=== PATIENT | female | born 1940 ===

== ENCOUNTER 2017-07-30 22:15 | Observation (INO) | payer OTHER ==
[2017-07-30 22:47] LABS: BASO # 0.1 K/uL (0.0-0.2); BASO % 1.2 % (0.0-2.0); EOS # 0.2 K/uL (0.0-0.7); EOS % 1.4 % (0.0-4.0); LYMPH # 3.8 K/uL (1.0-4.3); LYMPH % 33.1 % (20.0-40.0); MEAN CELL VOLUME 90.3 fl (81.0-99.0); MEAN CORPUSCULAR HEMOGLOBIN 30.9 pg (27.0-31.0); MEAN CORPUSCULAR HGB CONC 34.2 g/dL (33.0-37.0); MEAN PLATELET VOLUME 8.6 fl (7.2-11.7); MONO % 8.6 % (0.0-10.0); NEUT # 6.4 K/uL (1.8-7.0); NEUT % 55.7 % (50.0-75.0); NRBC % 0.1 % (0.0-0.0); RBC 4.2 Mil/uL (3.80-5.20); WHITE BLOOD COUNT 11.4 K/uL (4.8-10.8)
[2017-07-30 22:57] LABS: ALB/GLOB RATIO 1.2 (1.0-2.1); ALT/SGPT 24 U/L (9-52); AST/SGOT 23 U/L (14-36); BLOOD UREA NITROGEN 21 mg/dl (7-17); CALCIUM 9.5 mg/dL (8.4-10.2); GFR AFRICAN-AMERICAN > 60; GFR NON-AFRICAN AMERICAN 54
[2017-07-30 23:05] LABS: PARTIAL THROMBOPLASTIN TIME 31.7 Seconds (25.6-37.1); PROTHROMBIN TIME 10.9 Seconds (9.8-13.1)
--- NOTE | 2017-07-31 00:01 | ED PDOC ---
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 Patient was evaluated by ALS at the scene and was released. Patient states she had a similar episode 1 week ago, and states 1 month ago, she was in [place] where she suffered a fall and had a workup in the ER which showed hydrocephalus and had the DOPING SUPERVISOR shunt placed. Since then, patient has followed up with Dr. Rodriguez, her neurologist and has another appointment on 08/05. She states she has gait instability and has worsening urinary incontinence. She denies any back pain, headache, nausea, vomiting, chest pain, or shortness of breath. Patient is the primary historian but her is at bedside. PMD: Kishore Vincent NIHSS Stroke Scale - Date/Time Evaluation Performed Date Performed: 07/31/17 Time Performed: 22:25 When Was NIHSS Performed: Baseline - How Severe is the Stroke Level of Consciousness: 0=Alert LOC to Questions: 0=Both comments correct LOC to commands: 0=Obeys both correctly Best Gaze: 0=Normal Visual: 0=No visual loss Facial: 0=Normal Motor Arm - Left: 0=No drift Motor Arm - Right: 0=No drift Motor Leg - Left: 0=No drift Motor Leg - Right: NA - Amputation, joint fusion Limb Ataxia: 0=Absent Sensory: 0=Normal Best Language: 0=No aphasia Dysarthia: 0=Normal articulation Extinction & Inattention (Neglect): 0=Normal, no object Score: 0 Past Medical History Reviewed: Historical Data, Nursing Documentation, Vital Signs Vital Signs: Last Vital Signs Temp 98.6 F 07/30/17 22:19 Pulse 71 07/30/17 22:19 Resp 16 07/30/17 22:19 BP 131/79 07/30/17 22:19 Pulse Ox 97 07/30/17 22:19 - Medical History PMH: CVA (s/p CVA), Dementia, Depression, Diabetes, Seizures (Currently takes medication perscribed from [facility]), TIA Denies: Arthritis, CHF, COPD, HTN, Hypercholesterolemia, Hypothyroidism, Rheumatoid Arthritis - Surgical History Other surgeries: DOPING SUPERVISOR shunt - Family History Family History: States: No Known Family Hx, Unknown Family Hx - Living Arrangements Living Arrangements: With Family - Social History Current smoker - smoking cessation education provided: No Alcohol: None Drugs: Denies - Immunization History Hx Tetanus Toxoid Vaccination: No Hx Influenza Vaccination: Yes Hx Pneumococcal Vaccination: Yes - Home Medications Home Medications: Ambulatory Orders Medication Instructions Recorded Pravastatin Sodium [Pravachol] 40 mg PO HS 04/04/15 Aspirin [Ecotrin] 81 mg PO DAILY #0 tabec 04/07/15 Donepezil [Aricept] 5 mg PO DAILY #0 tab 04/07/15 Zolpidem Tartrate [Ambien] 5 mg PO HS PRN #30 tab 04/07/15 Dulaglutide [Trulicity] 0.75 mg SC QWK 07/31/17 Escitalopram [Lexapro] 20 mg PO DAILY 07/31/17 Levothyroxine [Synthroid] 25 mcg PO DAILY 07/31/17 busPIRone [Buspar] 10 mg PO DAILY 07/31/17 metFORMIN [glucOPHAGE] 1,000 mg PO DAILY 07/31/17 - Allergies Allergies/Adverse Reactions: Allergies Allergy/AdvReac Type Severity Reaction Status Date / Time No Known Allergies Allergy Verified 07/22/17 16:47 Review of Systems ROS Statement: Except As Marked, All Systems Reviewed And Found Negative Constitutional: Negative for: Fever, Chills Cardiovascular: Negative for: Chest Pain Respiratory: Negative for: Shortness of Breath Gastrointestinal: Negative for: Nausea, Vomiting Genitourinary Female: Positive for: Incontinence Musculoskeletal: Negative for: Back Pain Neurological: Positive for: Other (aphasic episode, unsteady gait, ). Negative for: Weakness, Headache Physical Exam - Reviewed Nursing Documentation Reviewed: Yes Vital Signs Reviewed: Yes - Physical Exam Appears: Positive for: Non-toxic, No Acute Distress Head Exam: Positive for: ATRAUMATIC, NORMAL INSPECTION (easily depressable right temporal DOPING SUPERVISOR shunt reservoir), NORMOCEPHALIC Skin: Positive for: Normal Color, Warm, Dry Eye Exam: Positive for: Normal appearance, EOMI, PERRL Neck: Positive for: Normal, Supple Cardiovascular/Chest: Positive for: Regular Rate, Rhythm Respiratory: Positive for: Normal Breath Sounds Gastrointestinal/Abdominal: Positive for: Normal Exam, Soft. Negative for: Tenderness Back: Positive for: Normal Inspection. Negative for: Vertebral Tenderness Extremity: Positive for: Normal ROM. Negative for: Deformity Neurologic/Psych: Positive for: Alert, perishable fruit inspector II-XII (intact), Oriented. Negative for: Motor/Sensory Deficits, Aphasia, Facial Droop - Laboratory Results Result Diagrams: 07/30/17 22:37 07/30/17 22:37 - ECG O2 Sat by Pulse Oximetry: 97 (RA) Pulse Ox Interpretation: Normal Medical Decision Making Medical Decision Making: Impression: Aphasia in setting of history of hydrocephalus, DOPING SUPERVISOR shunt Plan: -- Labs -- CT head w/o contrast -- Tylenol 650 mg PO -- EKG Time: [address] Rodriguez, patient's neurologist who agrees that based on patient's exam, intermittent episodes past week, she is not a candidate for stroke alert or code stroke. He is agreeable with current workup plan and states should the results be negative and patient stays asymptomatic in the ER, she can follow up with his tomorrow at 11am in his office. Time: 11 CT head w/o contrast FINDINGS: BRAIN: Areas of hypodensity in the white matter bilaterally, nonspecific in appearance, but most likely representing chronic small vessel ischemic changes, in a patient of this age. Physiologic basal ganglia calcification. No significant acute abnormality identified. No acute hemorrhage seen within the brain. No acute extra-axial fluid collections visualized. No evidence of significant mass effect within the brain. No CT findings to suggest an acute, large territorial infarct, however, small or early acute infarcts may not be visible on CT. VENTRICLES: Right transfrontal ventriculostomy in place, which terminates in the region of the frontal horns. Ventricles do not appear abnormally dilated with respect to the degree of cortical atrophy to suggest significant hydrocephalus. BONES/JOINTS: No acute fractures or other acute bony abnormality noted. SOFT TISSUES: No acute abnormality of the visualized soft tissues is seen. SINUSES: Visualized paranasal sinuses appear clear. MASTOID AIR CELLS: Mastoid air cells appear clear. IMPRESSION: - No acute findings seen within the brain. - Ventriculostomy in place. Time:124 -- reports she had another episode in which patient speech was slurred but intelligible. Patient will be placed on observation for altered mental status and recurrent aphasia. Case discussed with Dr. Santillan and patient will be admitted under his service. Scribe Attestation: Documented by Anastasiia Puente, acting as a scribe for Jacek Izaguirre MD Provider Scribe Attestation: All medical record entries made by the Scribe were at my direction and personally dictated by me. I have reviewed the chart and agree that the record accurately reflects my personal performance of the history, physical exam, medical decision making, and the department course for this patient. I have also personally directed, reviewed, and agree with the discharge instructions and disposition. Disposition - Clinical Impression Clinical Impression: Aphasia - Patient ED Disposition Is Patient to be Admitted: Yes - Disposition Disposition Time: 01:25 Condition: FAIR
--- NOTE | 2017-07-31 00:12 | CT ---
EXAM: CT Head Without Intravenous Contrast EXAM DATE/TIME: 07/30/2017 10:51 PM CLINICAL HISTORY: 77 years old, female; Signs and symptoms; Other: Aphasia; Prior surgery; Surgery date: 6+ months; Surgery type: H/o shunt; Additional info: HX shunt, episode of aphasia TECHNIQUE: Axial computed tomography images of the head/brain without intravenous contrast. All CT scans at this facility use one or more dose reduction techniques, viz.: automated exposure control; ma/kV adjustment per patient size (including targeted exams where dose is matched to indication; i.e. head); or iterative reconstruction technique. Coronal and sagittal reformatted images were created and reviewed. COMPARISON: None is available currently. FINDINGS: BRAIN: Areas of hypodensity in the white matter bilaterally, nonspecific in appearance, but most likely representing chronic small vessel ischemic changes, in a patient of this age. Physiologic basal ganglia calcification. No significant acute abnormality identified. No acute hemorrhage seen within the brain. No acute extra-axial fluid collections visualized. No evidence of significant mass effect within the brain. No CT findings to suggest an acute, large territorial infarct, however, small or early acute infarcts may not be visible on CT. VENTRICLES: Right transfrontal ventriculostomy in place, which terminates in the region of the frontal horns. Ventricles do not appear abnormally dilated with respect to the degree of cortical atrophy to suggest significant hydrocephalus. BONES/JOINTS: No acute fractures or other acute bony abnormality noted. SOFT TISSUES: No acute abnormality of the visualized soft tissues is seen. SINUSES: Visualized paranasal sinuses appear clear. MASTOID AIR CELLS: Mastoid air cells appear clear. IMPRESSION: - No acute findings seen within the brain. - Ventriculostomy in place. - See above for remaining findings.
[2017-07-31] MEDS ORDERED: Levothyroxine 25 MCG TAB PO SCH (06:45)
[2017-07-31] MEDS: Insulin Lispro (humaLOG) 100 Units/ml Inj SC SCH ×3 (06:53→17:00)
[2017-07-31 07:49] LABS: HEMOGLOBIN 12.7 g/dL (12.0-16.0); MEAN CORPUSCULAR HEMOGLOBIN 29.9 pg (27.0-31.0); MEAN CORPUSCULAR HGB CONC 32.9 g/dL (33.0-37.0); RBC 4.24 Mil/uL (3.80-5.20); RED CELL DISTRIBUTION WIDTH 14.1 % (11.5-14.5); WHITE BLOOD COUNT 11.1 K/uL (4.8-10.8)
[2017-07-31 08:15] LABS: ALB/GLOB RATIO 1.1 (1.0-2.1); ALBUMIN 3.8 g/dL (3.5-5.0); ALT/SGPT 26 U/L (9-52); AST/SGOT 18 U/L (14-36); BLOOD UREA NITROGEN 17 mg/dl (7-17); CALCIUM 9.5 mg/dL (8.4-10.2); GFR AFRICAN-AMERICAN > 60; GFR NON-AFRICAN AMERICAN > 60; HDL CHOLESTEROL 34 MG/DL (30-70); LDL CHOLESTEROL 70 mg/dL (0-129)
[2017-07-31 08:20] LABS: T4 7.72 ug/dl (5.5-11.0)
[2017-07-31 08:33] LABS: T3 0.959 nmol/L (1.49-2.60)
[2017-07-31] MEDS ORDERED: Enoxaparin 40 mg Syringe SC SCH (09:00)
--- NOTE | 2017-07-31 09:06 | CP.PCM.HP ---
History of Present Illness - History of Present Illness History of Present Illness: 77 yo , f, PMhx/o HTN, DM, DM, HLD, hydrocephalus with a SENIOR TAX SPECIALIST shunt in place, dementia, presents c/o difficulty speaking noticed last night . Patient reports that when she went out from restroom and going back to meet with her she felt confused and lost in her own house and when she tried to talk to her , she was mute and could not speak. she leilani like numbness right side of her face and b/l leg muscle weakness. Patient states she had a similar episode 1 week ago, and states 1 month ago, she was in [place] where she suffered a fall and had a workup in the ER which showed hydrocephalus and had the SENIOR TAX SPECIALIST shunt placed. Since then, patient has followed up with Dr. Rodriguez, her neurologist and has another appointment on 08/05. She states she has gait instability and has worsening urinary incontinence She denies syncope, chest pain, SOB, fever, nausea, vomiting. Dysuria. Present on Admission - Present on Admission Any Indicators Present on Admission: No History of DVT/PE: No History of Uncontrolled Diabetes: No Review of Systems - Review of Systems All systems: reviewed and no additional remarkable complaints except - Neurological Additional comments: unable to speak facial numbness Past Patient History - Infectious Disease Hx of Infectious Diseases: None - Past Medical History & Family History Past Medical History?: Yes - Past Social History Alcohol: None Drugs: Denies - CARDIAC Hx Congestive Heart Failure: No Hx Hypercholesterolemia: No Hx Hypertension: No - PULMONARY Hx Chronic Obstructive Pulmonary Disease (COPD): No - NEUROLOGICAL Hx Dementia: Yes Hx Seizures: Yes (Currently takes medication perscribed from [facility]) Hx Transient Ischemic Attacks (TIA): Yes - HEENT Hx HEENT Problems: No - RENAL Hx Chronic Kidney Disease: No - ENDOCRINE/METABOLIC Hx Hypothyroidism: No - HEMATOLOGICAL/ONCOLOGICAL Hx Blood Disorders: Yes Hx Cancer: Yes (colon ca with sx) - INTEGUMENTARY Hx Dermatological Problems: Yes Other/Comment: skin ca (nose) with sx - MUSCULOSKELETAL/RHEUMATOLOGICAL Hx Arthritis: No Hx Rheumatoid Arthritis: No - GASTROINTESTINAL Hx Gastrointestinal Disorders: No - GENITOURINARY/GYNECOLOGICAL Hx Genitourinary Disorders: Yes Hx Incontinence: Yes - PSYCHIATRIC Hx Depression: Yes - SURGICAL HISTORY Hx Surgeries: Yes Other/Comment: right knee surgery. brain surgery with "device" SENIOR TAX SPECIALIST shunt placement - ANESTHESIA Hx Anesthesia: Yes Hx Anesthesia Reactions: No Meds Allergies/Adverse Reactions: Allergies Allergy/AdvReac Type Severity Reaction Status Date / Time No Known Allergies Allergy Verified 07/22/17 16:47 Physical Exam - Constitutional Appears: Non-toxic, No Acute Distress - Head Exam Head Exam: ATRAUMATIC, NORMOCEPHALIC - Eye Exam Eye Exam: Normal appearance - ENT Exam ENT Exam: Mucous Membranes Moist - Neck Exam Neck exam: Positive for: Normal Inspection - Respiratory Exam Respiratory Exam: Clear to Auscultation Bilateral. absent: Rhonchi, Wheezes - Cardiovascular Exam Cardiovascular Exam: REGULAR RHYTHM, +S1, +S2 - GI/Abdominal Exam GI & Abdominal Exam: Normal Bowel Sounds. absent: Tenderness - Extremities Exam Extremities exam: Positive for: normal inspection. Negative for: pedal edema - Neurological Exam Neurological exam: Alert, Oriented x3 - Psychiatric Exam Psychiatric exam: Normal Affect, Normal Mood - Skin Skin Exam: Intact Results - Vital Signs Recent Vital Signs: Last Vital Signs Temp 97.8 F 07/31/17 08:03 Pulse 58 L 07/31/17 08:03 Resp 18 07/31/17 08:03 BP 104/65 07/31/17 08:03 Pulse Ox 98 07/31/17 08:03 - Labs Result Diagrams: 07/31/17 07:44 07/31/17 07:44 Labs: Laboratory Results - last 24 hr 07/30/17 07/30/17 07/30/17 22:37 22:37 22:37 WBC 11.4 H RBC 4.20 Hgb 13.0 Hct 37.9 MCV 90.3 D MCH 30.9 MCHC 34.2 RDW 14.0 Plt Count 235 MPV 8.6 Neut % (Auto) 55.7 Lymph % (Auto) 33.1 Cuming % (Auto) 8.6 Eos % (Auto) 1.4 Baso % (Auto) 1.2 Neut # (Auto) 6.4 Lymph # (Auto) 3.8 Cuming # (Auto) 1.0 H Eos # (Auto) 0.2 Baso # (Auto) 0.1 PT 10.9 INR 1.0 APTT 31.7 Sodium 141 Potassium 4.3 Chloride 104 Carbon Dioxide 24 Anion Gap 17 BUN 21 H Creatinine 1.0 Est GFR ( Amer) > 60 Est GFR (Non-Af Amer) 54 POC Glucose (mg/dL) Random Glucose 147 H Calcium 9.5 Total Bilirubin 0.2 AST 23 ALT 24 Alkaline Phosphatase 81 Troponin I < 0.0120 Total Protein 7.5 Albumin 4.0 Globulin 3.5 Albumin/Globulin Ratio 1.2 Triglycerides Cholesterol LDL Cholesterol Direct HDL Cholesterol Vitamin B12 Thyroxine (T4) Total T3 TSH 3rd Generation 07/30/17 07/31/17 07/31/17 22:40 05:33 07:02 WBC RBC Hgb Hct MCV MCH MCHC RDW Plt Count MPV Neut % (Auto) Lymph % (Auto) Cuming % (Auto) Eos % (Auto) Baso % (Auto) Neut # (Auto) Lymph # (Auto) Cuming # (Auto) Eos # (Auto) Baso # (Auto) PT INR APTT Sodium Potassium Chloride Carbon Dioxide Anion Gap BUN Creatinine Est GFR ( Amer) Est GFR (Non-Af Amer) POC Glucose (mg/dL) 168 H 118 H Random Glucose Calcium Total Bilirubin AST ALT Alkaline Phosphatase Troponin I Total Protein Albumin Globulin Albumin/Globulin Ratio Triglycerides Cholesterol LDL Cholesterol Direct HDL Cholesterol Vitamin B12 237 L Thyroxine (T4) Total T3 TSH 3rd Generation 07/31/17 07/31/17 07:44 07:44 WBC 11.1 H RBC 4.24 Hgb 12.7 Hct 38.6 MCV 91.0 MCH 29.9 MCHC 32.9 L RDW 14.1 Plt Count 232 MPV Neut % (Auto) Lymph % (Auto) Cuming % (Auto) Eos % (Auto) Baso % (Auto) Neut # (Auto) Lymph # (Auto) Cuming # (Auto) Eos # (Auto) Baso # (Auto) PT INR APTT Sodium 142 Potassium 4.3 Chloride 104 Carbon Dioxide 26 Anion Gap 16 BUN 17 Creatinine 0.8 Est GFR ( Amer) > 60 Est GFR (Non-Af Amer) > 60 POC Glucose (mg/dL) Random Glucose 137 H Calcium 9.5 Total Bilirubin 0.3 AST 18 ALT 26 Alkaline Phosphatase 77 Troponin I Total Protein 7.1 Albumin 3.8 Globulin 3.4 Albumin/Globulin Ratio 1.1 Triglycerides 109 Cholesterol 141 LDL Cholesterol Direct 70 HDL Cholesterol 34 Vitamin B12 Thyroxine (T4) 7.72 Total T3 0.959 L TSH 3rd Generation 4.07 Assessment & Plan - Assessment and Plan (Free Text) Plan: Assessment/Plan 1) AMS -unspecified -may be 2/[address] head: ventriculostomy in place, no acute findings - MRI brain: pending -Carotid us: 50-69 % stenosis proximal left internal carotid artery - Neuro consult appreciated: carotid, MRI brain 2) Motor aphasia may be secondary to TIA Neuro consult appreciated: carotid, MRI brain CT head: ventriculostomy in place, no acute findings. MRI brain: pending Carotid us: 50-69 % stenosis proximal left internal carotid artery 3) Hydrocephalus s/p trauma with SENIOR TAX SPECIALIST shunt in place -may be 2/2 Normo pressure hydrocephalus -on f/u with neurologist 4) HTN -c/w home meds 5) DM c/w home meds 6) HLD c/w home meds 7) DVT prophylaxis -Lovenox 40 mg sc
--- NOTE | 2017-07-31 09:10 | CARD ---
APPROVED REPORT EKG Measurement Heart [id number] <Conclusion> Normal sinus rhythm Minimal voltage criteria for LVH, may be normal variant Borderline ECG
--- NOTE | 2017-07-31 11:41 | CON ---
DATE: NEUROLOGY CONSULTATION REASON FOR CONSULTATION: Difficulty with speech. HISTORY OF PRESENT ILLNESS: The patient is a 77-year-old female who has been asked for evaluation of difficulty with speech. The patient has a history of dementia, seizure, and history of VISUAL COORDINATOR shunt. The patient was brought into the hospital after she had an episode during which she has difficulty with speech. The patient did say that she knew what she wanted, but her voice was not coming out, it lasted for about 20 minutes and then she was fine. She had an similar episode 1 week ago. She had not had any focal weakness in arms or legs associated with it. Denies to having any other complaints. REVIEW OF SYSTEMS: Does complain of mild headache. Denies any chest pain, shortness of breath, abdominal pain, constipation, diarrhea, dysuria, pyuria, cough or sputum production. PAST MEDICAL HISTORY: Includes mild dementia, diabetes mellitus, and hypothyroidism. MEDICATIONS: Includes levothyroxine, Lexapro, Glucophage, BuSpar, Aricept, Ecotrin, pravastatin, Ambien, and Trulicity. ALLERGIES: NO KNOWN DRUG ALLERGIES. SOCIAL HISTORY: Denies smoking, use of alcohol or illicit drugs. FAMILY HISTORY: Reviewed and noncontributory to the case. PHYSICAL EXAMINATION: GENERAL: The patient is an elderly pleasant female, lying on the bed in no acute distress. VITAL SIGNS: Her blood pressure is 104/65, heart rate is 58 per minute, breathing at a rate of 16 per minute, and temperature is 97.8 degrees Fahrenheit. HEENT: Normocephalic and atraumatic. NECK: Supple. There are no carotid bruits. LUNGS: Clear. CARDIOVASCULAR: S1 and S2 audible. No murmurs. ABDOMEN: Soft and nontender. Bowel sounds present. NEUROLOGIC: Mental status: The patient is awake, alert and oriented to time, place and person. Speech is fluent. Naming and repetition is normal. Memory and cognition are intact. Cranial nerve examination; pupils are 3 mm, bilaterally reactive to light. Visual pleitez are full. Extraocular movements are intact. There is no facial asymmetry. Palate is upgoing bilaterally and tongue is midline. Motor examination: Tone is normal. Power is 5/5 bilaterally in all extremities. Reflexes 1+ and symmetrical. Plantars downgoing bilaterally. Cerebellar examination: [id number] shows no dysmetria. Gait is deferred at the moment. LABORATORY DATA: Labs reviewed shows WBC of 11.1, hemoglobin of 12.7, hematocrit of 38.6, and platelets of 232,000. Sodium is 142, potassium 4.3, chloride of 104, carbon dioxide of 26, BUN of 17, creatinine of 0.8, and glucose of 137. She had CT scan of the head done, which showed no acute findings. Ventriculostomy in place. IMPRESSION: Episode of difficulty with speech possibly expressive aphasia, rule out seizure versus possible transient ischemic attack. RECOMMENDATIONS: 1. The patient to have MRI of the brain without contrast. 2. The patient also to have carotid Doppler study. 3. The patient to have an electroencephalogram. 4. If the patient's MRI of the brain shows an acute infarct then consider obtaining echocardiogram as well. 5. The patient was not a candidate for administration because of resolution of her symptoms. 6. The patient's NIH stroke scale was 0. 7. The patient to be continued on aspirin. 8. The patient also to be continued on statin. 9. Please continue supportive care and treatment. If the above workup is negative, the patient may be discharged with outpatient followup. Thank you for the opportunity to participate in the care of this patient. Alice Rodriguez MD
--- NOTE | 2017-07-31 13:09 | US ---
PROCEDURE: Duplex ultrasound of the carotid and vertebral arteries. HISTORY: aphasia COMPARISON: Carotid ultrasound dated 08/26/2013. TECHNIQUE: Grayscale and duplex Doppler evaluation of the cervical carotid and vertebral arteries were performed. The common carotid, carotid bifurcations and cervical ICA and proximal ECA were evaluated. The vertebral arteries were evaluated for gross patency and direction. FINDINGS: RIGHT CAROTID ARTERIES: Common Carotid Artery: Normal. Maximal flow velocity of 69.3 cm/s. Carotid Bifurcation: Normal. Internal Carotid Artery:Normal. Maximal flow velocity of 90.2 cm/s. External Carotid Artery (proximal branches): Normal. Maximal flow velocity of 59.3 cm/s. ICA/CCA Ratio: 1.6 LEFT CAROTID ARTERIES: Common Carotid Artery: Normal. Maximal flow velocity of 72.4 cm/s. Carotid Bifurcation: Normal. Internal Carotid Artery:Atherosclerotic plaque. Maximal flow velocity of 159.6 cm/s. External Carotid Artery (proximal branches): Normal. Maximal flow velocity of 45.6 cm/s. ICA/CCA Ratio: 2.9 VERTEBRAL ARTERIES: Right Vertebral Artery: Patent. Antegrade flow. Left Vertebral Artery: Patent. Antegrade flow. OTHER FINDINGS: None. IMPRESSION: Per NASCET criteria, approximately 50-69 percent stenosis of the proximal left internal carotid artery.
[2017-07-31 13:19] VITALS: O2SAT 95
[2017-07-31 16:00] VITALS: RESP 20
[2017-07-31 18:38] VITALS: BP 106/51; PULSE 69; TEMP 97.9
[2017-07-31] MEDS ORDERED: Pravastatin Sodium 40 MG TAB PO SCH (22:00)
== END 2017-07-31 20:05 | disposition home or self-care (01) ==
LOC: H.ER 22:15 → H.ERHOLD 07-31 01:25 → H.TEL 07-31 02:59
PROVIDERS: ADMIT Internal Medicine; ATTEND Internal Medicine
DX: R47.9 Unspecified speech disturbances (principal); I10 Essential (primary) hypertension; E11.9 Type 2 diabetes mellitus without complications; F03.90 Unspecified dementia, unspecified severity, without behavioral disturbance, psychotic disturbance, mood disturbance, and anxiety; Z98.2 Presence of cerebrospinal fluid drainage device; E78.5 Hyperlipidemia, unspecified; Z86.73 Personal history of transient ischemic attack (TIA), and cerebral infarction without residual deficits; I65.22 Occlusion and stenosis of left carotid artery; G91.9 Hydrocephalus, unspecified
CPT/HCPCS: 36415; 70450; 80053; 80061; 82607; 82948; 84436; 84443; 84480; 84484; 85025; 85027; 85610; 85730; 93005; 93880; 95816; 96372; 99285; G0378; J1650; J3420

== ENCOUNTER 2017-08-07 00:11 | Observation (INO) | payer OTHER ==
[2017-08-07 00:50] LABS: BASO # 0.1 K/uL (0.0-0.2); EOS # 0.2 K/uL (0.0-0.7); EOS % 1.3 % (0.0-4.0); HEMOGLOBIN 12.8 g/dL (12.0-16.0); LYMPH # 3.9 K/uL (1.0-4.3); LYMPH % 28.4 % (20.0-40.0); MEAN CELL VOLUME 91.1 fl (81.0-99.0); MEAN CORPUSCULAR HEMOGLOBIN 30.5 pg (27.0-31.0); MEAN CORPUSCULAR HGB CONC 33.4 g/dL (33.0-37.0); MEAN PLATELET VOLUME 8.8 fl (7.2-11.7); MONO % 7.7 % (0.0-10.0); NEUT # 8.4 K/uL (1.8-7.0); NEUT % 61.6 % (50.0-75.0); RBC 4.21 Mil/uL (3.80-5.20); WHITE BLOOD COUNT 13.6 K/uL (4.8-10.8)
[2017-08-07 01:03] LABS: ALB/GLOB RATIO 1.3 (1.0-2.1); ALBUMIN 4.1 g/dL (3.5-5.0); CALCIUM 9.4 mg/dL (8.4-10.2)
[2017-08-07 01:12] LABS: PARTIAL THROMBOPLASTIN TIME 31.9 Seconds (25.6-37.1); PROTHROMBIN TIME 11.2 Seconds (9.8-13.1)
--- NOTE | 2017-08-07 01:17 | ED PDOC ---
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 At present patient confirms asymptomatic state. Patient states she had a similar episode 1 week ago and was subsequently admitted to this hospital. Patient reports she suffered a fall x1 month ago and had an ED workup which showed hydrocephalus and had the CONTRACTS PARALEGAL shunt placed. Since then, patient has followed up with Dr. Rodriguez (neurologist). Patient notes gait instability and has worsening urinary incontinence. (-) back pain, headache, nausea, vomiting, chest pain, or SOB. Of note, patient has an appointment with Dr. Rodriguez later today. PMD: Kishore Vincent NIHSS Stroke Scale - Date/Time Evaluation Performed Date Performed: 08/07/17 When Was NIHSS Performed: Baseline - How Severe is the Stroke Level of Consciousness: 0=Alert LOC to Questions: 0=Both comments correct LOC to commands: 0=Obeys both correctly Best Gaze: 0=Normal Visual: 0=No visual loss Facial: 0=Normal Motor Arm - Left: 0=No drift Motor Arm - Right: 0=No drift Motor Leg - Left: 0=No drift Motor Leg - Right: 0=No drift Limb Ataxia: 0=Absent Sensory: 0=Normal Best Language: 0=No aphasia Dysarthia: 0=Normal articulation Extinction & Inattention (Neglect): 0=Normal, no object Score: 0 rTPA Inclusion/Exclusion - Refusal of Treatment Patient Refused Treatment: No - Inclusion Criteria for Altepase Patient is 18 years or Older: Yes The Clinical Diagnosis of Ischemic Stroke That is Causing a Potentially Disabling Neurological Deficit: No Time of Onset is Well Established to be Less Than 270 Minute Before Treatment Would Begin: Yes Risk/Benefit Discussed With Patient/Family Member Present: Yes - Exclusion Criteria for Altepase Uncontrolled Hypertension at Time of Treatment (Systolic BP above 185 or Diastolic BP above 110 mmHg): No Active Internal Bleeding: No Known Bleeding Diathesis Including but Not Limited to: Platelets Below 100,000/ mm,PTT Above 40 sec After Heparin Use, Current Use of Oral Anitcoagulant With INR Greater Than 1.7 or PT Greater Than 15 secs: No Evidence of an Intracranial Hemorrhage: No Evidence of Major Acute Infarct With Signs Greater Than 1/3 MCA Territory: No Suspicion of Subarachnoid Hemorrhage on Pretreatment Evaluation Even if CT Head Negative For Hemorrhage: No - Warning to TPA With Conditions Following Conditions Weighed Against Anticipated Benefit: Yes Condition: Stroke Serevity Too Mild, Rapid Improvement Past Medical History Reviewed: Historical Data, Nursing Documentation, Vital Signs Vital Signs: Last Vital Signs Temp 99.6 F 08/07/17 00:13 Pulse 83 08/07/17 00:13 Resp 16 08/07/17 00:13 BP 126/75 08/07/17 00:13 Pulse Ox 97 08/07/17 00:13 - Medical History PMH: CVA (s/p CVA), Dementia, Depression, Diabetes, HTN, Seizures (Currently takes medication perscribed from [facility]), TIA Denies: Arthritis, CHF, COPD, Hypercholesterolemia, Hypothyroidism, Chronic Kidney Disease, Rheumatoid Arthritis - Family History Family History: States: Unknown Family Hx - Living Arrangements Living Arrangements: With Family - Social History Current smoker - smoking cessation education provided: No Ex-Smoker (has not smoked in the last 12 months): No Alcohol: None Drugs: Denies - Immunization History Hx Tetanus Toxoid Vaccination: No Hx Influenza Vaccination: Yes Hx Pneumococcal Vaccination: Yes - Home Medications Home Medications: Ambulatory Orders Medication Instructions Recorded Pravastatin Sodium [Pravachol] 40 mg PO HS 04/04/15 Aspirin [Ecotrin] 81 mg PO DAILY #0 tabec 04/07/15 Donepezil [Aricept] 5 mg PO DAILY #0 tab 04/07/15 Zolpidem Tartrate [Ambien] 5 mg PO HS PRN #30 tab 04/07/15 Dulaglutide [Trulicity] 0.75 mg SC QWK 07/31/17 Escitalopram [Lexapro] 20 mg PO DAILY 07/31/17 Levothyroxine [Synthroid] 25 mcg PO DAILY 07/31/17 busPIRone [Buspar] 10 mg PO DAILY 07/31/17 metFORMIN [glucOPHAGE] 1,000 mg PO DAILY 07/31/17 - Allergies Allergies/Adverse Reactions: Allergies Allergy/AdvReac Type Severity Reaction Status Date / Time No Known Allergies Allergy Verified 07/22/17 16:47 Review of Systems ROS Statement: Except As Marked, All Systems Reviewed And Found Negative Cardiovascular: Negative for: Chest Pain Respiratory: Negative for: Shortness of Breath Gastrointestinal: Negative for: Nausea, Vomiting Musculoskeletal: Negative for: Back Pain Neurological: Positive for: Other ((+) aphasia, resolved). Negative for: Headache Physical Exam - Reviewed Nursing Documentation Reviewed: Yes Vital Signs Reviewed: Yes - Physical Exam Appears: Positive for: Non-toxic, No Acute Distress Skin: Positive for: Normal Color, Warm, Dry Eye Exam: Positive for: Normal appearance Cardiovascular/Chest: Positive for: Regular Rate, Rhythm. Negative for: Murmur Respiratory: Positive for: Normal Breath Sounds. Negative for: Respiratory Distress Gastrointestinal/Abdominal: Positive for: Normal Exam, Soft. Negative for: Tenderness Extremity: Positive for: Normal ROM. Negative for: Deformity Neurologic/Psych: Positive for: Alert, mold laminator II-XII (intact), Oriented, Cerebellar Tests (intact). Negative for: Motor/Sensory Deficits, Aphasia - Laboratory Results Result Diagrams: 08/07/17 00:44 08/07/17 00:44 - ECG O2 Sat by Pulse Oximetry: 97 (RA) Pulse Ox Interpretation: Normal Medical Decision Making Medical Decision Makin Initial impression: recurrent aphasia Initial plan: * CT HEAD * EKG * Labs * PTT/PT * Accucheck [address] Alice Rodriguez, who recommends placing on Obs status; he will coordinate possible EEG today [address] Santillan, who accepts patient under his service (OBS TELE). 0119 Labs reviewed show no clinically significant abnormalities Patient remains asymtomatic in ED CT FINDINGS: Brain: Bilateral physiologic basal ganglia calcifications. Cerebral and cerebellar volume loss. Patchy hypodensity is seen in the periventricular and subcortical white matter. Asymmetric prominence of left convexity extra-axial space unchanged from prior examination. No hemorrhage. Ventricles: Stable appearance of the ventricles when compared to prior examination. Bones/joints: Unremarkable. No acute fracture. Soft tissues: Unremarkable. Sinuses: Unremarkable. No acute sinusitis. Mastoid air cells: Unremarkable. No mastoid effusion. Orbits: The globe and lens are intact. Tubes, lines and devices: Right trans-frontal ventriculostomy shunt catheter with tip located near the septum pellucidum. IMPRESSION: No evidence of an acute intracranial hemorrhage, midline shift or mass effect is identified.Changes of an acute infarct may not be visible on CT for up to 24 to 48 hours. If this is of clinical concern, a follow up examination and/or MRI may be of benefit. Scribe Attestation: Documented by Sonja Leiva acting as a scribe for Jacek Izaguirre MD. Scribe Attestation: All medical record entries made by the Scribe were at my direction and personally dictated by me. I have reviewed the chart and agree that the record accurately reflects my personal performance of the history, physical exam, medical decision making, and the department course for this patient. I have also personally directed, reviewed, and agree with the discharge instructions and disposition. Disposition - Clinical Impression Clinical Impression: Aphasia - Patient ED Disposition Is Patient to be Admitted: Yes Discussed With DrNirmala: Alice Rodriguez (Dr Santillan) - Disposition Disposition Time: 00:31 Condition: FAIR - Pt Status Changed To: Hospital Disposition Of: Observation (OBS TELE)
--- NOTE | 2017-08-07 01:20 | CT ---
EXAM: CT Head Without Intravenous Contrast CLINICAL HISTORY: 77 years old, female; Signs and symptoms and condition or disease; Other: Aphasia; Additional info: Episode of aphasia TECHNIQUE: Axial computed tomography images of the head/brain without intravenous contrast. All CT scans at this facility use one or more dose reduction techniques, viz.: automated exposure control; ma/kV adjustment per patient size (including targeted exams where dose is matched to indication; i.e. head); or iterative reconstruction technique. 308 images are submitted. Axial images are submitted in brain and bone windows. Coronal and sagittal reformatted images were created and reviewed. Axial reformatted images were created and reviewed. COMPARISON: CT - HEAD W/O CONTRAST 2017-07-30 23:24 FINDINGS: Brain: Bilateral physiologic basal ganglia calcifications. Cerebral and cerebellar volume loss. Patchy hypodensity is seen in the periventricular and subcortical white matter. Asymmetric prominence of left convexity extra-axial space unchanged from prior examination. No hemorrhage. Ventricles: Stable appearance of the ventricles when compared to prior examination. Bones/joints: Unremarkable. No acute fracture. Soft tissues: Unremarkable. Sinuses: Unremarkable. No acute sinusitis. Mastoid air cells: Unremarkable. No mastoid effusion. Orbits: The globe and lens are intact. Tubes, lines and devices: Right trans-frontal ventriculostomy shunt catheter with tip located near the septum pellucidum. IMPRESSION: No evidence of an acute intracranial hemorrhage, midline shift or mass effect is identified.Changes of an acute infarct may not be visible on CT for up to 24 to 48 hours. If this is of clinical concern, a follow up examination and/or MRI may be of benefit.
--- NOTE | 2017-08-07 08:44 | CP.PCM.HP ---
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 Patient reports that symptoms lasted for about 15 minutes and resolved spontaneously. She also noticed left side face numbness and sensation of twisted face. She denies fever, cough, sob, chest pain, dysuria. Patient reports that she has been nervous thinking about her son in [place], but not states a real stressor factor. She reports a hx/o anxiety and states that her son told her that if something bad happens to her he would end with his life. Patient was recent discharge a week ago for similar symptoms and evaluated by dr teran. Present on Admission - Present on Admission Any Indicators Present on Admission: No History of DVT/PE: No History of Uncontrolled Diabetes: No Urinary Catheter: No Decubitus Ulcer Present: No Review of Systems - Review of Systems All systems: reviewed and no additional remarkable complaints except - Neurological Neurological: Numbness Additional comments: difficulty speaking Past Patient History - Infectious Disease Hx of Infectious Diseases: None - Past Medical History & Family History Past Medical History?: Yes - Past Social History Alcohol: None Drugs: Denies - CARDIAC Hx Congestive Heart Failure: No Hx Hypercholesterolemia: No Hx Hypertension: Yes - PULMONARY Hx Chronic Obstructive Pulmonary Disease (COPD): No - NEUROLOGICAL Hx Dementia: Yes Hx Seizures: Yes (Currently takes medication perscribed from [facility]) Hx Transient Ischemic Attacks (TIA): Yes - HEENT Hx HEENT Problems: No - RENAL Hx Chronic Kidney Disease: No - ENDOCRINE/METABOLIC Hx Hypothyroidism: No - HEMATOLOGICAL/ONCOLOGICAL Hx Blood Disorders: Yes Hx AIDS: No Hx Cancer: Yes (colon ca with sx) Hx Human Immunodeficiency Virus (HIV): No - INTEGUMENTARY Hx Dermatological Problems: Yes Other/Comment: skin ca (nose) with sx - MUSCULOSKELETAL/RHEUMATOLOGICAL Hx Arthritis: No Hx Rheumatoid Arthritis: No - GASTROINTESTINAL Hx Gastrointestinal Disorders: No - GENITOURINARY/GYNECOLOGICAL Hx Genitourinary Disorders: Yes Hx Incontinence: Yes - PSYCHIATRIC Hx Depression: Yes - SURGICAL HISTORY Hx Surgeries: Yes Other/Comment: right knee surgery. 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 absent: Rhonchi, Wheezes - Cardiovascular Exam Cardiovascular Exam: REGULAR RHYTHM, +S2 - GI/Abdominal Exam GI & Abdominal Exam: Normal Bowel Sounds, Soft. absent: Tenderness - Extremities Exam Extremities exam: Positive for: normal inspection. Negative for: pedal edema - Neurological Exam Neurological exam: Alert, CN II-XII Intact, Oriented x3 - Psychiatric Exam Psychiatric exam: Normal Affect, Normal Mood - Skin Skin Exam: Intact Results - Vital Signs Recent Vital Signs: Last Vital Signs Temp 98.1 F 08/07/17 08:00 Pulse 65 08/07/17 08:00 Resp 20 08/07/17 08:00 BP 98/57 L 08/07/17 08:00 Pulse Ox 96 08/07/17 08:00 - Labs Result Diagrams: 08/07/17 00:44 08/07/17 00:44 Labs: Laboratory Results - last 24 hr 08/07/17 08/07/17 08/07/17 00:35 00:44 00:44 WBC 13.6 H RBC 4.21 Hgb 12.8 Hct 38.4 MCV 91.1 MCH 30.5 MCHC 33.4 RDW 14.0 Plt Count 240 MPV 8.8 Neut % (Auto) 61.6 Lymph % (Auto) 28.4 Benton % (Auto) 7.7 Eos % (Auto) 1.3 Baso % (Auto) 1.0 Neut # (Auto) 8.4 H Lymph # (Auto) 3.9 Benton # (Auto) 1.0 H Eos # (Auto) 0.2 Baso # (Auto) 0.1 PT INR APTT Sodium 141 Potassium 4.0 Chloride 105 Carbon Dioxide 22 Anion Gap 18 BUN 29 H Creatinine 1.1 Est GFR ( Amer) 58 Est GFR (Non-Af Amer) 48 POC Glucose (mg/dL) 175 H Random Glucose 187 H Calcium 9.4 Total Bilirubin 0.3 AST 17 ALT 27 Alkaline Phosphatase 89 Total Protein 7.4 Albumin 4.1 Globulin 3.2 Albumin/Globulin Ratio 1.3 08/07/17 08/07/17 00:44 05:41 WBC RBC Hgb Hct MCV MCH MCHC RDW Plt Count MPV Neut % (Auto) Lymph % (Auto) Benton % (Auto) Eos % (Auto) Baso % (Auto) Neut # (Auto) Lymph # (Auto) Benton # (Auto) Eos # (Auto) Baso # (Auto) PT 11.2 INR 1.0 APTT 31.9 Sodium Potassium Chloride Carbon Dioxide Anion Gap BUN Creatinine Est GFR ( Amer) Est GFR (Non-Af Amer) POC Glucose (mg/dL) 127 H Random Glucose Calcium Total Bilirubin AST ALT Alkaline Phosphatase Total Protein Albumin Globulin Albumin/Globulin Ratio Assessment & Plan - Assessment and Plan (Free Text) Plan: Assessment/Plan 1) Recurrent aphasic episode -unspecified -may be 2/[address] head: ventriculostomy in place, no acute findings -Carotid us: 50-69 % stenosis proximal left internal carotid artery - Neuro consult suggested 2) TIA -resolved - CT head: ventriculostomy in place, no acute findings -Carotid us: 50-69 % stenosis proximal left internal carotid artery - Neuro consult suggested -CTA brain 2) Hydrocephalus s/p trauma with BULK DELIVERY DRIVER shunt in place -may be 2/2 Normo pressure hydrocephalus -on f/u with neurologist 3) HTN -c/w home meds 4) DM c/w home meds 5) HLD c/w home meds 6) DVT prophylaxis -Lovenox 40 mg sc
[2017-08-07] MEDS: Enoxaparin 40 mg Syringe SC SCH (09:15)
[2017-08-07] MEDS: Levothyroxine 25 MCG TAB PO SCH (09:15)
[2017-08-07] MEDS ORDERED: Magnesium Sulfate 2 gm/50 ml 2 GM/50 ML BAG IVPB ONE (09:32)
[2017-08-07] MEDS ORDERED: Dexamethasone 10 MG in Sodium Chloride 0.9% 50 ML IV ONE (09:32)
[2017-08-07] MEDS ORDERED: Valproate 500 MG in Sodium Chloride 0.9% 100 ML IVPB ONE (09:33)
--- NOTE | 2017-08-07 11:54 | CARD ---
APPROVED REPORT EKG Measurement Heart [id number] <Conclusion> Normal sinus rhythm Normal ECG
[2017-08-07] MEDS ORDERED: Iodixanol 320 MG/ML 100 ML BOTTLE IV ONE (15:25)
[2017-08-07] MEDS ORDERED: Sodium Chloride 0.9% 50 ML IV ONE (15:25)
[2017-08-07] MEDS: Insulin Lispro (humaLOG) 100 Units/ml Inj SC SCH ×2 (17:15→21:47)
--- NOTE | 2017-08-07 17:28 | CT ---
PROCEDURE: CT Angiography of the Head and Neck. HISTORY: r/o CVA COMPARISON: None available. TECHNIQUE: CT angiography of the intracranial and neck arteries was performed. Coronal and sagittal maximum intensity projection reformatted images were generated. Contrast Dose: Visipaque 320, 80 cc Radiation dose:Total exam DLP = 563.11 mGy-cm. This CT exam was performed using one or more of the following dose reduction techniques: Automated exposure control, adjustment of the mA and/or kV according to patient size, and/or use of iterative reconstruction technique. FINDINGS: INTERNAL CEREBRAL ARTERIES: Unremarkable. The skull base, petrous, cavernous and supraclinoid segments are bilaterally widely patent. ANTERIOR CEREBRAL ARTERIES: Unremarkable. A1 and A2 segments are widely patent. Smaller distal branches unremarkable, as visualized. MIDDLE CEREBRAL ARTERIES: Unremarkable. M1 and M2 segments are widely patent. Perisylvian branches grossly symmetric. POSTERIOR CIRCULATION: Basilar Artery: Unremarkable. Distal Vertebral Arteries: Hypoplastic but patent distal left vertebral artery with unremarkable right distal vertebral artery. Posterior Cerebral Arteries: Unremarkable. . Posterior Inferior Cerebellar Arteries: Unremarkable. ANEURYSM/ VASCULAR MALFORMATIONS: None. OTHER FINDINGS: Right ventricular shunt in situ. IMPRESSION: Intracranial hemorrhage are remarkable only for hypoplastic but patent distal left vertebral arteries. Unremarkable Neck CT angiogram.
--- NOTE | 2017-08-07 17:34 | CP.PCM.CON ---
History of Present Illness - History of Present Illness History of Present Illness: Mrs. Galan is a 77-year-old woman with a past medical history of epilepsy and NPH, s/p shunt, who presented to the ED complaining of an episode of confusion and speech difficulty. This is the second time in the last month that the patient has these symptoms. The episode lasted several hours, then subsided. Today, she is able to converse normally. Her usual neurologist is Dr. Rodriguez, who I contacted, and he mentioned that the patient also has anxiety and has had recent seizures. CT scan of the head and CTA of the head/neck were unremarkable. Review of Systems - Review of Systems All systems: reviewed and no additional remarkable complaints except Past Patient History - Infectious Disease Hx of Infectious Diseases: None - Past Medical History & Family History Past Medical History?: Yes - Past Social History Alcohol: None Drugs: Denies - CARDIAC Hx Congestive Heart Failure: No Hx Hypercholesterolemia: No Hx Hypertension: Yes - PULMONARY Hx Chronic Obstructive Pulmonary Disease (COPD): No - NEUROLOGICAL Hx Dementia: Yes Hx Seizures: Yes (Currently takes medication perscribed from [facility]) Hx Transient Ischemic Attacks (TIA): Yes - HEENT Hx HEENT Problems: No - RENAL Hx Chronic Kidney Disease: No - ENDOCRINE/METABOLIC Hx Hypothyroidism: No - HEMATOLOGICAL/ONCOLOGICAL Hx Blood Disorders: Yes Hx AIDS: No Hx Cancer: Yes (colon ca with sx) Hx Human Immunodeficiency Virus (HIV): No - INTEGUMENTARY Hx Dermatological Problems: Yes Other/Comment: skin ca (nose) with sx - MUSCULOSKELETAL/RHEUMATOLOGICAL Hx Arthritis: No Hx Rheumatoid Arthritis: No - GASTROINTESTINAL Hx Gastrointestinal Disorders: No - GENITOURINARY/GYNECOLOGICAL Hx Genitourinary Disorders: Yes Hx Incontinence: Yes - PSYCHIATRIC Hx Depression: Yes - SURGICAL HISTORY Hx Surgeries: Yes Other/Comment: right knee surgery. 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 - ANESTHESIA Hx Anesthesia: Yes Hx Anesthesia Reactions: No Hx Malignant Hyperthermia: No Has any member of the family had a problem w/ anesthesia?: No Meds Allergies/Adverse Reactions: Allergies Allergy/AdvReac Type Severity Reaction Status Date / Time No Known Allergies Allergy Verified 07/22/17 16:47 - Medications Medications: Current Medications Aspirin (Ecotrin) 81 mg PO DAILY [facility] Last Admin: 08/07/17 09:16 Dose: 81 mg Buspirone HCl (Buspar) 10 mg PO DAILY [facility] Last Admin: 08/07/17 09:16 Dose: 10 mg Donepezil HCl (Aricept) 5 mg PO DAILY [facility] Last Admin: 08/07/17 09:16 Dose: 5 mg Enoxaparin Sodium (Lovenox) 40 mg SC DAILY [facility] PRN Reason: Protocol Last Admin: 08/07/17 09:15 Dose: 40 mg Escitalopram Oxalate (Lexapro) 20 mg PO DAILY [facility] Last Admin: 08/07/17 09:16 Dose: 20 mg Home Med (Dulaglutide [Trulicity]) 0.75 mg SC QWK [facility] Insulin Human Lispro (Humalog) 0 units SC ACHS [facility] PRN Reason: Protocol Last Admin: 08/07/17 17:15 Dose: 2 units Levothyroxine Sodium (Synthroid) 25 mcg PO DAILY@0630 [facility] Last Admin: 08/07/17 09:15 Dose: 25 mcg Metformin HCl (Glucophage) 1,000 mg PO DAILY [facility] Last Admin: 08/07/17 09:16 Dose: 1,000 mg Pravastatin Sodium (Pravachol) 40 mg PO HS MAGAN Zolpidem Tartrate (Ambien) 5 mg PO HS PRN PRN Reason: Insomnia Physical Exam - Neurological Exam Neurological exam: Abnormal Gait, CN II-XII Intact, Reflexes Normal Additional comments: Confused about some events, and has short term memory loss. FTN is abnormal bilaterally. Strength is symmetrical, sensation is intact. Results - Vital Signs Recent Vital Signs: Last Vital Signs Temp 98.6 F 08/07/17 16:21 Pulse 71 08/07/17 16:21 Resp 18 08/07/17 16:21 BP 113/59 L 08/07/17 16:21 Pulse Ox 95 08/07/17 16:21 - Labs Result Diagrams: 08/07/17 00:44 08/07/17 00:44 Labs: Laboratory Results - last 24 hr 08/07/17 08/07/17 08/07/17 00:35 00:44 00:44 WBC 13.6 H RBC 4.21 Hgb 12.8 Hct 38.4 MCV 91.1 MCH 30.5 MCHC 33.4 RDW 14.0 Plt Count 240 MPV 8.8 Neut % (Auto) 61.6 Lymph % (Auto) 28.4 [place] % (Auto) 7.7 Eos % (Auto) 1.3 Baso % (Auto) 1.0 Neut # (Auto) 8.4 H Lymph # (Auto) 3.9 [place] # (Auto) 1.0 H Eos # (Auto) 0.2 Baso # (Auto) 0.1 PT INR APTT Sodium 141 Potassium 4.0 Chloride 105 Carbon Dioxide 22 Anion Gap 18 BUN 29 H Creatinine 1.1 Est GFR ( Amer) 58 Est GFR (Non-Af Amer) 48 POC Glucose (mg/dL) 175 H Random Glucose 187 H Calcium 9.4 Total Bilirubin 0.3 AST 17 ALT 27 Alkaline Phosphatase 89 Total Protein 7.4 Albumin 4.1 Globulin 3.2 Albumin/Globulin Ratio 1.3 08/07/17 08/07/17 08/07/17 00:44 05:41 10:52 WBC RBC Hgb Hct MCV MCH MCHC RDW Plt Count MPV Neut % (Auto) Lymph % (Auto) [place] % (Auto) Eos % (Auto) Baso % (Auto) Neut # (Auto) Lymph # (Auto) [place] # (Auto) Eos # (Auto) Baso # (Auto) PT 11.2 INR 1.0 APTT 31.9 Sodium Potassium Chloride Carbon Dioxide Anion Gap BUN Creatinine Est GFR ( Amer) Est GFR (Non-Af Amer) POC Glucose (mg/dL) 127 H 272 H Random Glucose Calcium Total Bilirubin AST ALT Alkaline Phosphatase Total Protein Albumin Globulin Albumin/Globulin Ratio 08/07/17 16:01 WBC RBC Hgb Hct MCV MCH MCHC RDW Plt Count MPV Neut % (Auto) Lymph % (Auto) [place] % (Auto) Eos % (Auto) Baso % (Auto) Neut # (Auto) Lymph # (Auto) [place]uming # (Auto) Eos # (Auto) Baso # (Auto) PT INR APTT Sodium Potassium Chloride Carbon Dioxide Anion Gap BUN Creatinine Est GFR ( Amer) Est GFR (Non-Af Amer) POC Glucose (mg/dL) 224 H Random Glucose Calcium Total Bilirubin AST ALT Alkaline Phosphatase Total Protein Albumin Globulin Albumin/Globulin Ratio Assessment & Plan (1) Aphasia Assessment and Plan: These recurrent events may be due to seizures since they are associated with confusion and resolve completely. I recommend obtaining an EEG and starting Depakote 250 mg BID. The patient should also be on aspirin 81 mg daily. The shunt appears to be functioning well, since the ventricles do not appear to be dilated and there is no worsening in gait. However, neurosurgical eval can be obtained as an outpatient. Thank you. Status: Acute
--- NOTE | 2017-08-07 19:33 | CARD ---
APPROVED REPORT EXAM: Two-dimensional and M-mode echocardiogram with Doppler and color Doppler. Other Information Quality : FairRhythm : NSR INDICATION CVA/TIA 2D DIMENSIONS Left Atrium (2D)2.44 (1.6-4.0cm)IVSd0.74 (0.7-1.1cm) Aortic Root (2D)3.25 (2.0-3.7cm)LVDd3.45 (3.9-5.9cm) PWd0.70 (0.7-1.1cm)IVSs1.15 (0.8-1.2cm) LVDs2.62 (2.5-4.0cm)PWs1.31 (0.8-1.2cm) M-Mode DIMENSIONS Left Atrium (MM)3.60 (2.5-4.0cm)IVSd0.62 (0.7-1.1cm) Aortic Root3.32 (2.2-3.7cm)LVDd4.66 (4.0-5.6cm) Aortic Cusp Exc.2.06 (1.5-2.0cm)PWd0.51 (0.7-1.1cm) IVSs1.26 cmFS (%) 30 % LVDs3.27 (2.0-3.8cm)PWs1.60 cm Mitral Valve MV E Myuvvcjr84.1cm/sMV DECEL [id number] A Sjiqnfjj19.9cm/s MV [id number] ratio0.6MVA (PHT)2.26cm2 TDI Lateral E' Peak V4.64cm/sMedial E' Peak V6.27cm/sE/Lateral E'8.2 E/Medial E'6.1 Pulmonary Valve PV Peak Qzhtjtvg62.4cm/s Tricuspid Valve RAP [id number] LEFT VENTRICLE The left ventricle is normal in size. There is normal left ventricular wall thickness. The left ventricular function is normal. The left ventricular ejection fraction is - 60%. There is normal LV segmental wall motion. Transmitral Doppler flow pattern is Grade I-abnormal relaxation pattern. No left ventricle thrombus noted on this study. There is no ventricular septal defect visualized. There is no left ventricular aneurysm. There is no mass noted in the left ventricle. RIGHT VENTRICLE The right ventricle is normal size. There is normal right ventricular wall thickness. The right ventricular systolic function is normal. ATRIA The left atrium is mildly dilated on the 2D study. The right atrium size is normal. The interatrial septum is intact with no evidence for an atrial septal defect. AORTIC VALVE The aortic valve is mildly calcified. No aortic regurgitation is present. There is no aortic valvular stenosis. MITRAL VALVE The mitral valve is normal in structure. There is no evidence of mitral valve prolapse. There is no mitral valve stenosis. There is no mitral valve regurgitation noted. TRICUSPID VALVE The tricuspid valve is normal in structure. There is mild tricuspid regurgitation. Right ventricular systolic pressure is estimated at 32 mmHg. There is no tricuspid valve prolapse or vegetation. There is no tricuspid valve stenosis. PULMONIC VALVE The pulmonary valve is normal in structure. There is no pulmonic valvular regurgitation. GREAT VESSELS The aortic root is normal in size. The IVC is normal in size and collapses >50% with inspiration. PERICARDIAL EFFUSION There is a small anterior echo free space. There is no pleural effusion. <Conclusion> The study is of fair quality. The left ventricle is normal in size and wall thickness. The left ventricular function is normal. The left ventricular ejection fraction is - 60%. The left atrium is mildly dilated on the 2D study. The aortic valve is mildly calcific but not stenotic. The mitral and tricuspid valves are normal. There is mild tricuspid regurgitation.
[2017-08-07] MEDS: Divalproex 250 mg DR(BID formulation) PO SCH (21:23)
[2017-08-07] MEDS ORDERED: Pravastatin Sodium 40 MG TAB PO SCH (22:00)
[2017-08-08] MEDS: Levothyroxine 25 MCG TAB PO SCH (06:24)
[2017-08-08] MEDS: Insulin Lispro (humaLOG) 100 Units/ml Inj SC SCH (06:32)
--- NOTE | 2017-08-08 07:54 | CP.PCM.PN ---
Subjective - Date & Time of Evaluation Date of Evaluation: 08/08/17 Time of Evaluation: 07:35 - Subjective Subjective: Patient seen and examined this morning at bedside w/ Dr. Santillan. Patient reports feeling better and speaking w/o difficulty. Patient denies headaches, chest pain, SOB, abdominal pain, nausea, vomiting, or fever. Objective - Vital Signs/Intake and Output Vital Signs (last 24 hours): Temp Pulse Resp BP Pulse Ox 97.9 F 62 18 114/61 97 08/08/17 04:54 08/08/17 04:54 08/08/17 04:54 08/08/17 04:54 08/08/17 04:54 - Medications Medications: Current Medications Aspirin (Ecotrin) 81 mg PO DAILY [facility] Last Admin: 08/07/17 09:16 Dose: 81 mg Buspirone HCl (Buspar) 10 mg PO DAILY [facility] Last Admin: 08/07/17 09:16 Dose: 10 mg Divalproex Sodium (Depakote Dr(*Bid*)) 250 mg PO BID [facility] Last Admin: 08/07/17 21:23 Dose: 250 mg Donepezil HCl (Aricept) 5 mg PO DAILY [facility] Last Admin: 08/07/17 09:16 Dose: 5 mg Enoxaparin Sodium (Lovenox) 40 mg SC DAILY [facility] PRN Reason: Protocol Last Admin: 08/07/17 09:15 Dose: 40 mg Escitalopram Oxalate (Lexapro) 20 mg PO DAILY [facility] Last Admin: 08/07/17 09:16 Dose: 20 mg Home Med (Dulaglutide [Trulicity]) 0.75 mg SC QWK [facility] Insulin Human Lispro (Humalog) 0 units SC ACHS [facility] PRN Reason: Protocol Last Admin: 08/08/17 06:32 Dose: Not Given Levothyroxine Sodium (Synthroid) 25 mcg PO DAILY@0630 [facility] Last Admin: 08/08/17 06:24 Dose: 25 mcg Metformin HCl (Glucophage) 1,000 mg PO DAILY [facility] Last Admin: 08/07/17 09:16 Dose: 1,000 mg Pravastatin Sodium (Pravachol) 40 mg PO HS [facility] Last Admin: 08/07/17 21:23 Dose: 40 mg Zolpidem Tartrate (Ambien) 5 mg PO HS PRN PRN Reason: Insomnia - Labs Labs: 08/07/17 00:44 08/07/17 00:44 PT 11.2 Seconds (9.8-13.1) 08/07/17 00:44 INR 1.0 (0.9-1.2) 08/07/17 00:44 APTT 31.9 Seconds (25.6-37.1) 08/07/17 00:44 - Constitutional Appears: Non-toxic, No Acute Distress - Head Exam Head Exam: ATRAUMATIC, NORMAL INSPECTION, NORMOCEPHALIC - Eye Exam Eye Exam: Normal appearance - ENT Exam ENT Exam: Mucous Membranes Moist - Neck Exam Neck Exam: Full ROM. absent: Tenderness - Respiratory Exam Respiratory Exam: Clear to Ausculation Bilateral. absent: Accessory Muscle Use , Decreased Breath Sounds, Rales, Rhonchi, Wheezes, Respiratory Distress - Cardiovascular Exam Cardiovascular Exam: REGULAR RHYTHM. absent: Tachycardia, Murmur - GI/Abdominal Exam GI & Abdominal Exam: Soft, Normal Bowel Sounds. absent: Distended, Tenderness - Extremities Exam Extremities Exam: Normal Inspection. absent: Calf Tenderness - Neurological Exam Neurological Exam: Alert, Awake, CN II-XII Intact, Oriented x3 - Skin Skin Exam: Dry, Intact, Normal Color, Warm Assessment and Plan (1) Aphasia Status: Acute (2) DM2 (diabetes mellitus, type 2) Status: Chronic (3) Hypothyroidism Status: Chronic (4) Hyperlipidemia associated with type 2 diabetes mellitus Status: Chronic - Assessment and Plan (Free Text) Plan: c/w present management afebrile, non-tachycardic, normotensive neurology recommendations appreciated head/neck CTA: unremarkable, hypoplastic but patent distal left vertebral arteries c/w home medications for DM2, hypothyroidism follow up EEG prophylactic measures: DVT lovenox 40 mg SC daily
[2017-08-08 08:07] VITALS: RESP 20
[2017-08-08] MEDS: Divalproex 250 mg DR(BID formulation) PO SCH (08:35)
[2017-08-08] MEDS: Enoxaparin 40 mg Syringe SC SCH (08:36)
--- NOTE | 2017-08-08 09:55 | CP.PCM.PN ---
Subjective - Date & Time of Evaluation Date of Evaluation: 08/08/17 Time of Evaluation: 09:53 - Subjective Subjective: Ms. Galan was seen and examined at the bedside. She is alert, oriented with episode of forgetfulness. She denies any headache,, dizziness, weakness, nausea , or vomiting. She is able to follow simple commands, participate in a coherent conversation, and moves all extremities spontaneously. There was no untoward events overnight. Objective - Vital Signs/Intake and Output Vital Signs (last 24 hours): Temp Pulse Resp BP Pulse Ox 97.6 F 71 20 118/57 L 95 08/08/17 08:06 08/08/17 08:06 08/08/17 08:06 08/08/17 08:06 08/08/17 08:06 - Medications Medications: Current Medications Aspirin (Ecotrin) 81 mg PO DAILY [facility] Last Admin: 08/08/17 08:35 Dose: 81 mg Buspirone HCl (Buspar) 10 mg PO DAILY [facility] Last Admin: 08/08/17 08:35 Dose: 10 mg Divalproex Sodium (Depakote Dr(*Bid*)) 250 mg PO BID [facility] Last Admin: 08/08/17 08:35 Dose: 250 mg Donepezil HCl (Aricept) 5 mg PO DAILY [facility] Last Admin: 08/08/17 08:36 Dose: 5 mg Enoxaparin Sodium (Lovenox) 40 mg SC DAILY [facility] PRN Reason: Protocol Last Admin: 08/08/17 08:36 Dose: 40 mg Escitalopram Oxalate (Lexapro) 20 mg PO DAILY [facility] Last Admin: 08/08/17 08:35 Dose: 20 mg Home Med (Dulaglutide [Trulicity]) 0.75 mg SC QWK [facility] Insulin Human Lispro (Humalog) 0 units SC ACHS [facility] PRN Reason: Protocol Last Admin: 08/08/17 06:32 Dose: Not Given Levothyroxine Sodium (Synthroid) 25 mcg PO DAILY@0630 [facility] Last Admin: 08/08/17 06:24 Dose: 25 mcg Metformin HCl (Glucophage) 1,000 mg PO DAILY [facility] Last Admin: 08/08/17 08:35 Dose: 1,000 mg Pravastatin Sodium (Pravachol) 40 mg PO HS [facility] Last Admin: 08/07/17 21:23 Dose: 40 mg Zolpidem Tartrate (Ambien) 5 mg PO HS PRN PRN Reason: Insomnia - Labs Labs: 08/07/17 00:44 08/07/17 00:44 PT 11.2 Seconds (9.8-13.1) 08/07/17 00:44 INR 1.0 (0.9-1.2) 08/07/17 00:44 APTT 31.9 Seconds (25.6-37.1) 08/07/17 00:44 - Constitutional Appears: No Acute Distress - Head Exam Head Exam: NORMAL INSPECTION - Eye Exam Pupil Exam: PERRL - Neurological Exam Neurological Exam: Alert, Awake, Oriented x3 Neuro motor strength exam: Left Upper Extremity: 5, Right Upper Extremity: 5, Left Lower Extremity: 5, Right Lower Extremity: 5 Additional comments: Neurological unchanged from previous examination. Assessment and Plan (1) Aphasia Assessment & Plan: Case discussed with Dr. Palacio, continue all current medical, physical, and occupational therapies. Pending EEG. Recommend treat any hematology, electrolytes abnormalities, blood pressure and glycemic control. Status: Acute
[2017-08-08 10:26] LABS: HEMOGLOBIN 13.4 g/dL (12.0-16.0); MEAN CELL VOLUME 91.6 fl (81.0-99.0); MEAN CORPUSCULAR HEMOGLOBIN 29.8 pg (27.0-31.0); MEAN CORPUSCULAR HGB CONC 32.5 g/dL (33.0-37.0); RBC 4.49 Mil/uL (3.80-5.20); RED CELL DISTRIBUTION WIDTH 13.5 % (11.5-14.5); WHITE BLOOD COUNT 14.8 K/uL (4.8-10.8)
[2017-08-08 12:39] VITALS: BP 118/55; PULSE 60; TEMP 97.9; O2SAT 99
--- NOTE | 2017-08-08 15:21 | CP.PCM.DIS ---
Provider - Provider Date of Admission: 08/07/17 00:31 Attending physician: Kumar Santillan MD Time Spent in preparation of Discharge (in minutes): 15 Diagnosis - Discharge Diagnosis (1) Aphasia Status: Acute (2) DM2 (diabetes mellitus, type 2) Status: Chronic (3) Hypothyroidism Status: Chronic (4) Hyperlipidemia associated with type 2 diabetes mellitus Status: Chronic Hospital Course - Lab Results Lab Results: Most Recent Lab Values WBC 14.8 K/uL (4.8-10.8) H 08/08/17 10:10 RBC 4.49 Mil/uL (3.80-5.20) 08/08/17 10:10 Hgb 13.4 g/dL (12.0-16.0) 08/08/17 10:10 Hct 41.2 % (34.0-47.0) 08/08/17 10:10 MCV 91.6 fl (81.0-99.0) 08/08/17 10:10 MCH 29.8 pg (27.0-31.0) 08/08/17 10:10 MCHC 32.5 g/dL (33.0-37.0) L 08/08/17 10:10 RDW 13.5 % (11.5-14.5) 08/08/17 10:10 Plt Count 278 K/uL (130-400) 08/08/17 10:10 MPV 8.8 fl (7.2-11.7) 08/07/17 00:44 Neut % (Auto) 61.6 % (50.0-75.0) 08/07/17 00:44 Lymph % (Auto) 28.4 % (20.0-40.0) 08/07/17 00:44 [place] % (Auto) 7.7 % (0.0-10.0) 08/07/17 00:44 Eos % (Auto) 1.3 % (0.0-4.0) 08/07/17 00:44 Baso % (Auto) 1.0 % (0.0-2.0) 08/07/17 00:44 Neut # (Auto) 8.4 K/uL (1.8-7.0) H 08/07/17 00:44 Lymph # (Auto) 3.9 K/uL (1.0-4.3) 08/07/17 00:44 [place] # (Auto) 1.0 K/uL (0.0-0.8) H 08/07/17 00:44 Eos # (Auto) 0.2 K/uL (0.0-0.7) 08/07/17 00:44 Baso # (Auto) 0.1 K/uL (0.0-0.2) 08/07/17 00:44 PT 11.2 Seconds (9.8-13.1) 08/07/17 00:44 INR 1.0 (0.9-1.2) 08/07/17 00:44 APTT 31.9 Seconds (25.6-37.1) 08/07/17 00:44 Sodium 141 mmol/l (132-148) 08/07/17 00:44 Potassium 4.0 MMOL/L (3.6-5.0) 08/07/17 00:44 Chloride 105 mmol/L (98-107) 08/07/17 00:44 Carbon Dioxide 22 mmol/L (22-30) 08/07/17 00:44 Anion Gap 18 (10-20) 08/07/17 00:44 BUN 29 mg/dl (7-17) H 08/07/17 00:44 Creatinine 1.1 mg/dl (0.7-1.2) 08/07/17 00:44 Est GFR ( Amer) 58 08/07/17 00:44 Est GFR (Non-Af Amer) 48 08/07/17 00:44 POC Glucose (mg/dL) 191 mg/dL (65-110) H 08/08/17 10:50 Random Glucose 187 mg/dL (65-105) H 08/07/17 00:44 Calcium 9.4 mg/dL (8.4-10.2) 08/07/17 00:44 Total Bilirubin 0.3 mg/dl (0.2-1.3) 08/07/17 00:44 AST 17 U/L (14-36) 08/07/17 00:44 ALT 27 U/L (9-52) 08/07/17 00:44 Alkaline Phosphatase 89 U/L (38-126) 08/07/17 00:44 Total Protein 7.4 G/DL (6.3-8.2) 08/07/17 00:44 Albumin 4.1 g/dL (3.5-5.0) 08/07/17 00:44 Globulin 3.2 gm/dL (2.2-3.9) 08/07/17 00:44 Albumin/Globulin Ratio 1.3 (1.0-2.1) 08/07/17 00:44 - Hospital Course Hospital Course: 77 y/o woman w/ pmh of HTN, DM, HLD, hydrocephalus with a DIRECTOR CARDIAC shunt in place, dementia, presented w/ complaint of left sided numbness and unable to speak. Patient noticed while watching tv the night before arrival to ED. Patient had EKG NSR, no St elevation/depression; echo EF 60%, LV normal size, thickness, and function; CT head w/o contrast negative for hemorrhage; CTA head/neck showed hypoplastic but patent distal left vertebral arteries, unremarkable neck CT. The patient reports feeling better and back to her usual self with no issues in speech or movement. The patient was seen by neurology. The patient has been seen, examined, and deemed medically fit for discharge home. The patient is to follow up w/ PMD in 1 week. Patient DC'ed w/ script for depakote 250 mg PO BID. Discharge Exam - Head Exam Head Exam: ATRAUMATIC, NORMAL INSPECTION, NORMOCEPHALIC - Eye Exam Eye Exam: Normal appearance - ENT Exam ENT Exam: Mucous Membranes Moist - Neck Exam Neck exam: Full Rom - Respiratory Exam Respiratory Exam: Clear to PA & Lateral. absent: Accessory Muscle Use, Decreased Breath Sounds, Rales, Rhonchi, Wheezes, Respiratory Distress - Cardiovascular Exam Cardiovascular Exam: REGULAR RHYTHM, RRR. absent: Bradycardia, Tachycardia, Diastolic murmur, Systolic Murmur - GI/Abdominal Exam GI & Abdominal Exam: Normal Bowel Sounds, Soft. absent: Distended, Tenderness - Extremities Exam Extremities exam: normal inspection - Neurological Exam Neurological exam: Alert, CN II-XII Intact, Normal Gait, Oriented x3 - Skin Skin Exam: Dry, Intact, Normal Color, Warm Discharge Plan - Discharge Medications Prescriptions: Divalproex [Depakote DR(*BID*)] 250 mg PO BID #60 tcp - Follow Up Plan Condition: FAIR Disposition: HOME/ ROUTINE Instructions: Aphasia (DC) Additional Instructions: pt. cleared for discharge to Home today by and pt. may have outpatient EEG as per ( Rx given) E rx sent to [facility] f/u with and Referrals: Kumar Santillan MD [Staff Provider] - Felicita Jackson MD [Medical Doctor] - Bello Palacio MD [Medical Doctor] -
== END 2017-08-08 14:40 | disposition home or self-care (01) ==
LOC: H.ER 00:11 → H.ERHOLD 00:31 → H.TEL 02:58
PROVIDERS: ADMIT Internal Medicine; ATTEND Internal Medicine
DX: R47.01 Aphasia (principal); I10 Essential (primary) hypertension; E11.9 Type 2 diabetes mellitus without complications; E78.5 Hyperlipidemia, unspecified; Z98.2 Presence of cerebrospinal fluid drainage device; F03.90 Unspecified dementia, unspecified severity, without behavioral disturbance, psychotic disturbance, mood disturbance, and anxiety; Z86.73 Personal history of transient ischemic attack (TIA), and cerebral infarction without residual deficits; G40.909 Epilepsy, unspecified, not intractable, without status epilepticus; G91.2 (Idiopathic) normal pressure hydrocephalus; Z85.038 Personal history of other malignant neoplasm of large intestine; E03.9 Hypothyroidism, unspecified
CPT/HCPCS: 36415; 70450; 70496; 70498; 80053; 82948; 85025; 85027; 85610; 85730; 93005; 93306; 96365; 96367; 96372; 96375; 99284; G0378; J1100; J1650; Q9967

== ENCOUNTER 2018-02-08 20:34 | Inpatient (IN) | payer OTHER ==
--- NOTE | 2018-02-08 21:15 | ED PDOC ---
HPI: General Adult Time Seen by Provider: 02/08/18 20:48 Chief Complaint (Nursing): Female Genitourinary Chief Complaint (Provider): Weakness, unable to walk since this morning History Per: Patient History/Exam Limitations: no limitations Onset/Duration Of Symptoms: Days Have you had recent travel within the past 21 days to any of the following countries: [place], [place], [place] or [place]?: No Current Symptoms Are (Timing): Still Present Additional Complaint(s): 77 yo female with HTN, DM, hydrocephalus with CHIEF DISPATCHER shunt, incontinence, dyslipidemia and dementia brought in by for evaluation of generalized weakness. states that she cannot want and move legs to walk but is not having back or leg pain. Leag weakness began this morning. Pt reports posterior head pain for a long time and states she had Rx at home for head CT. PT also having incontinence however states this has been going on for 3 months. Past Medical History Reviewed: Historical Data, Nursing Documentation, Vital Signs Vital Signs: Last Vital Signs Temp 99 F 02/08/18 20:36 Pulse 88 02/08/18 20:36 Resp 18 02/08/18 20:36 BP 103/69 02/08/18 20:36 Pulse Ox 99 02/08/18 20:36 - Medical History PMH: CVA (s/p CVA), Dementia, Depression, Diabetes, HTN, Seizures (Currently takes medication perscribed from [facility]), TIA Denies: Arthritis, CHF, COPD, HIV, Hypercholesterolemia, Hypothyroidism, Chronic Kidney Disease, Rheumatoid Arthritis - Family History Family History: States: Unknown Family Hx - Living Arrangements Living Arrangements: With Family () - Social History Current smoker - smoking cessation education provided: No Alcohol: None Drugs: Denies - Immunization History Hx Tetanus Toxoid Vaccination: No Hx Influenza Vaccination: Yes Hx Pneumococcal Vaccination: Yes - Home Medications Home Medications: Ambulatory Orders Medication Instructions Recorded Pravastatin Sodium [Pravachol] 40 mg PO HS 04/04/15 Aspirin [Ecotrin] 81 mg PO DAILY #0 tabec 04/07/15 Donepezil [Aricept] 5 mg PO DAILY #0 tab 04/07/15 Zolpidem Tartrate [Ambien] 5 mg PO HS PRN #30 tab 04/07/15 Escitalopram [Lexapro] 20 mg PO DAILY 07/31/17 Levothyroxine [Synthroid] 25 mcg PO DAILY 07/31/17 busPIRone [Buspar] 10 mg PO DAILY 07/31/17 metFORMIN [glucOPHAGE] 1,000 mg PO DAILY 07/31/17 - Allergies Allergies/Adverse Reactions: Allergies Allergy/AdvReac Type Severity Reaction Status Date / Time No Known Allergies Allergy Verified 02/09/18 00:43 Review of Systems ROS Statement: Except As Marked, All Systems Reviewed And Found Negative Constitutional: Negative for: Fever, Chills Cardiovascular: Negative for: Chest Pain, Palpitations Respiratory: Negative for: Cough, Shortness of Breath Gastrointestinal: Negative for: Nausea, Vomiting, Abdominal Pain Neurological: Positive for: Weakness (Bilateral legs ), Altered Mental Status (At baseline, does not know date ), Headache. Negative for: Numbness, Incoordination Physical Exam - Reviewed Nursing Documentation Reviewed: Yes Vital Signs Reviewed: Yes - Physical Exam Appears: Positive for: Well, Non-toxic, No Acute Distress Head Exam: Positive for: ATRAUMATIC, NORMAL INSPECTION, NORMOCEPHALIC Skin: Positive for: Normal Color, Warm, DRY Eye Exam: Positive for: Normal appearance, EOMI, PERRL ENT: Positive for: Normal ENT Inspection Neck: Positive for: Normal, Painless ROM Cardiovascular/Chest: Positive for: Regular Rate, Rhythm Respiratory: Positive for: Normal Breath Sounds. Negative for: Accessory Muscle Use, Respiratory Distress Gastrointestinal/Abdominal: Positive for: Normal Exam, Soft. Negative for: Tenderness Back: Positive for: Normal Inspection Extremity: Positive for: Normal ROM, Other (Bilateral leg raise normal, strength in LE 5/5 bilateral ). Negative for: Deformity, Swelling Neurologic/Psych: Positive for: Alert, olive packer II-XII, Mood/Affect. Negative for: Oriented (Oriented to person only, Hx dementia ), Cerebellar Tests, Gait (Unable to be tested ), Aphasia, Facial Droop - Laboratory Results Result Diagrams: 02/08/18 21:40 02/08/18 21:40 - ECG O2 Sat by Pulse Oximetry: 99 Pulse Ox Interpretation: Normal Medical Decision Making Medical Decision Making: Elevated wbc of 14. (+) uti Discussed admission with Dr. Watts Disposition - Clinical Impression Clinical Impression: Pyelonephritis - Patient ED Disposition Is Patient to be Admitted: Yes - Disposition Disposition Time: 00:38 Condition: STABLE Forms: [employer] ([place])
[2018-02-08 21:56] LABS: BASO # 0.1 K/uL (0.0-0.2); HEMOGLOBIN 13.1 g/dL (12.0-16.0); LYMPH # 2.7 K/uL (1.0-4.3); LYMPH % 18.8 % (20.0-40.0); MEAN CELL VOLUME 90.9 fl (81.0-99.0); MEAN PLATELET VOLUME 8.5 fl (7.2-11.7); MONO # 1.1 K/uL (0.0-0.8); MONO % 7.6 % (0.0-10.0); NEUT # 10.3 K/uL (1.8-7.0); NEUT % 72.6 % (50.0-75.0); NRBC % 0.1 % (0.0-0.0); RBC 4.38 Mil/uL (3.80-5.20); RED CELL DISTRIBUTION WIDTH 13.8 % (11.5-14.5); WHITE BLOOD COUNT 14.2 K/uL (4.8-10.8)
[2018-02-08 22:02] LABS: INR 1.1; PROTHROMBIN TIME 12.3 Seconds (9.8-13.1)
[2018-02-08 22:05] LABS: PARTIAL THROMBOPLASTIN TIME 31.3 Seconds (25.6-37.1)
[2018-02-08 22:08] LABS: ALB/GLOB RATIO 1.2 (1.0-2.1); ALBUMIN 4.3 g/dL (3.5-5.0); ALT/SGPT 27 U/L (9-52); AST/SGOT 21 U/L (14-36); BLOOD UREA NITROGEN 15 mg/dl (7-17); CALCIUM 10.1 mg/dL (8.4-10.2); GFR NON-AFRICAN AMERICAN > 60
[2018-02-09] MEDS ORDERED: cefTRIAXone (Rocephin) 1 gm Inj ONE (00:35)
[2018-02-09 00:44] LABS: SQUAMOUS EPITHIAL 1 /hpf (0-5); URINE BACTERIA RARE (<OCC); URINE BILIRUBIN NEGATIVE (NEGATIVE); URINE BLOOD SMALL (NEGATIVE); URINE CLARITY CLOUDY (Clear); URINE COLOR YELLOW (YELLOW); URINE GLUCOSE (UA) NEG (Normal); URINE HYALINE CAST 0-2 /hpf (0-2); URINE LEUKOCYTE ESTERASE SMALL Leu/uL (Negative); URINE PROTEIN 30 mg/dL (NEGATIVE); URINE UROBILINOGEN 0.2-1.0 mg/dL (0.2-1.0)
[2018-02-09 01:11] LABS: VENOUS BLOOD GAS BASE EXCESS 2.4 mmol/L (0.0-2.0); VENOUS BLOOD GAS PCO2 38 mmHg (40-60); VENOUS BLOOD GAS PO2 21 mm/Hg (30-55); VENOUS BLOOD PH 7.45 (7.32-7.43)
--- NOTE | 2018-02-09 02:06 | CP.PCM.HP ---
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 Patient's reports patient has hx generalized weakess and unstable gait for >5 months but weakness worsens this AM. Patient reports lower abdominal pain and dysuria for several weeks. Reports +back pain and one episode of vomiting today. Patient is incontinent and uses 10/12 adult diapers/day. Recently seen by Dr. Carcamo about a week ago. Denies any recently fall or injury to head. Denies any chest pain, dyspnea, fever or chills. Pmhx: seizure disorder, dementia, hydrocephalus s/p EXTRUDING PRESS OPERATOR shunt, DMII, HTN, HLD, hx colon CA Pshx: multiple surgeries including EXTRUDING PRESS OPERATOR shunt placement, B/L knee replacement Familyhx: non-contributory Socialhx: denies EtOH, smoking cigarettes or drug uses. Allergies: NKDA Medications: reviewed PMD: Bob Rae Neurologist: Dr. Rodriguez Urologist: Dr. Carcamo Present on Admission - Present on Admission Any Indicators Present on Admission: No Review of Systems - Review of Systems All systems: reviewed and no additional remarkable complaints except (as mentio lico in HPI.) Past Patient History - Infectious Disease Hx of Infectious Diseases: None - Past Medical History & Family History Past Medical History?: Yes - Past Social History Alcohol: None Drugs: Denies - CARDIAC Hx Congestive Heart Failure: No Hx Hypercholesterolemia: No Hx Hypertension: Yes - PULMONARY Hx Chronic Obstructive Pulmonary Disease (COPD): No - NEUROLOGICAL Hx Dementia: Yes Hx Seizures: Yes (Currently takes medication perscribed from [facility]) Hx Transient Ischemic Attacks (TIA): Yes - HEENT Hx HEENT Problems: No - RENAL Hx Chronic Kidney Disease: No - ENDOCRINE/METABOLIC Hx Hypothyroidism: No - HEMATOLOGICAL/ONCOLOGICAL Hx Human Immunodeficiency Virus (HIV): No - INTEGUMENTARY Hx Dermatological Problems: Yes Other/Comment: skin ca (nose) with sx - MUSCULOSKELETAL/RHEUMATOLOGICAL Hx Arthritis: No Hx Rheumatoid Arthritis: No - GASTROINTESTINAL Hx Gastrointestinal Disorders: No - GENITOURINARY/GYNECOLOGICAL Hx Genitourinary Disorders: Yes Hx Incontinence: Yes - PSYCHIATRIC Hx Depression: Yes - SURGICAL HISTORY Hx Surgeries: Yes Other/Comment: right knee surgery. brain surgery with "device" EXTRUDING PRESS OPERATOR shunt placement - ANESTHESIA Hx Anesthesia: Yes Hx Anesthesia Reactions: No Hx Malignant Hyperthermia: No Meds Allergies/Adverse Reactions: Allergies Allergy/AdvReac Type Severity Reaction Status Date / Time No Known Allergies Allergy Verified 02/09/18 00:43 Physical Exam - Constitutional Appears: Well, Non-toxic, No Acute Distress, Chronically Ill, Other (demented) - Head Exam Head Exam: ATRAUMATIC, NORMAL INSPECTION - Eye Exam Eye Exam: Normal appearance, PERRL - ENT Exam ENT Exam: Mucous Membranes Moist, Normal Oropharynx - Neck Exam Neck exam: Positive for: Full Rom, Normal Inspection. Negative for: Meningismus - Respiratory Exam Respiratory Exam: Clear to Auscultation Bilateral, NORMAL BREATHING PATTERN. absent: Rhonchi, Wheezes - Cardiovascular Exam Cardiovascular Exam: REGULAR RHYTHM, +S1, +S2 - GI/Abdominal Exam GI & Abdominal Exam: Normal Bowel Sounds, Soft. absent: Distended, Rebound Additional comments: + lower abdominal tenderness, no guarding or rigidity - Extremities Exam Extremities exam: Positive for: normal capillary refill, pedal edema (1+), pedal pulses present. Negative for: calf tenderness - Back Exam Back exam: CVA tenderness (L), CVA tenderness (R), NORMAL INSPECTION - Neurological Exam Neurological exam: Alert, CN II-XII Intact Additional comments: Oriented to place and person but not time handgrip strength 4/5 motor strength both upper and lower extremities 4/5 Sensory intact - Psychiatric Exam Psychiatric exam: Anxious, Normal Affect - Skin Skin Exam: Dry, Normal Color, Warm Results - Vital Signs Recent Vital Signs: Last Vital Signs Temp 99.5 F 02/09/18 01:54 Pulse 82 02/09/18 01:54 Resp 17 02/09/18 01:54 BP 153/86 H 02/09/18 01:54 Pulse Ox 99 02/09/18 01:18 - Labs Result Diagrams: 02/08/18 21:40 02/08/18 21:40 Labs: Laboratory Results - last 24 hr 12/04/2702/08/18 02/08/18 21:40 21:40 21:40 WBC 14.2 H RBC 4.38 Hgb 13.1 Hct 39.8 MCV 90.9 MCH 30.0 MCHC 33.0 RDW 13.8 Plt Count 225 MPV 8.5 Neut % (Auto) 72.6 Lymph % (Auto) 18.8 L [place] % (Auto) 7.6 Eos % (Auto) 0.0 Baso % (Auto) 1.0 Neut # (Auto) 10.3 H Lymph # (Auto) 2.7 [place] # (Auto) 1.1 H Eos # (Auto) 0.0 Baso # (Auto) 0.1 PT 12.3 INR 1.1 APTT 31.3 pO2 VBG pH VBG pCO2 VBG HCO3 VBG Total CO2 VBG O2 Sat (Calc) VBG Base Excess VBG Potassium Glucose Lactate FiO2 Sodium 141 Potassium 4.5 Chloride 103 Carbon Dioxide 24 Anion Gap 19 BUN 15 Creatinine 0.9 Est GFR ( Amer) > 60 Est GFR (Non-Af Amer) > 60 POC Glucose (mg/dL) Random Glucose 171 H Calcium 10.1 Phosphorus 3.4 Magnesium 1.7 Total Bilirubin 0.5 AST 21 ALT 27 Alkaline Phosphatase 89 Troponin I < 0.0120 Total Protein 8.0 Albumin 4.3 Globulin 3.7 Albumin/Globulin Ratio 1.2 Venous Blood Potassium Urine Color Urine Clarity Urine pH Ur Specific [place] Urine Protein Urine Glucose (UA) Urine Ketones Urine Blood Urine Nitrate Urine Bilirubin Urine Urobilinogen Ur Leukocyte Esterase Urine RBC (Auto) Urine Microscopic WBC Ur Squamous Epith Cells Urine Bacteria Hyaline Casts 02/08/18 02/09/18 02/09/18 21:45 00:05 01:08 WBC RBC Hgb Hct MCV MCH MCHC RDW Plt Count MPV Neut % (Auto) Lymph % (Auto) [place] % (Auto) Eos % (Auto) Baso % (Auto) Neut # (Auto) Lymph # (Auto) [place] # (Auto) Eos # (Auto) Baso # (Auto) PT INR APTT pO2 21 L VBG pH 7.45 H VBG pCO2 38 L VBG HCO3 25.2 VBG Total CO2 27.6 VBG O2 Sat (Calc) 40.5 VBG Base Excess 2.4 H VBG Potassium 4.2 Glucose 136 H Lactate 1.3 FiO2 21.0 Sodium 137.0 Potassium Chloride 103.0 Carbon Dioxide Anion Gap BUN Creatinine Est GFR ( Amer) Est GFR (Non-Af Amer) POC Glucose (mg/dL) 159 H Random Glucose Calcium Phosphorus Magnesium Total Bilirubin AST ALT Alkaline Phosphatase Troponin I Total Protein Albumin Globulin Albumin/Globulin Ratio Venous Blood Potassium 4.2 Urine Color Yellow Urine Clarity Cloudy Urine pH 6.0 Ur Specific [place] 1.017 Urine Protein 30 Urine Glucose (UA) Neg Urine Ketones Trace Urine Blood Small Urine Nitrate Positive H Urine Bilirubin Negative Urine Urobilinogen 0.2-1.0 Ur Leukocyte Esterase Small Urine RBC (Auto) 10 H Urine Microscopic WBC 17 H Ur Squamous Epith Cells 1 Urine Bacteria Rare Hyaline Casts 0-2 Assessment & Plan - Assessment and Plan (Free Text) Assessment: Assessment: 77 year old female with pmhx of hydrocephalus s/p EXTRUDING PRESS OPERATOR shut in place, seizures disorder dementia, HTN, DMII, HLD and urinary incontinence brought to [facility] ED by EMS accompanied by her with complaints of lower extremity weakness since this morning. UA shows + leukocyte and nitrite. CBC shows WBC of 14.2. Patient is admitted for pyelonephritis. Acute complicated urinary tract infection -UA : + leukocyte and nitrite -CBC: WBC of 14.2 -Received 1 dose of ceftriaxone in ED -Continue ceftriaxone 1gm IVPB qdaily -IV fluids NS @125 CC/HR -F/U urine cx and blood cx Hydrocephalus s/p EXTRUDING PRESS OPERATOR shunt in place -CT of head w/o contrast shows slightly greater prominence of ventricular system compared with study. Shunt catheter terminates in the frontal horn of the left lateral ventricle. -Consider neuro consult if symptoms persists Generalized weakness -troponin x 1 neg -EKG: NSR @81 bpm, No ST elevation or Q wave seen. -PT/OT once stable -f/u troponin x 2 Dementia -continue Aricept 5 mg po Diabetes mellitus II -c/w Metformin 1000 mg po daily Hyperlipidemia -c/w pravastatin 40 mg po hs Seizure disorder -depakoate 250 mg BID DVT prophylaxis -Lovenox 40 mg sc GI prophylaxis -Protonix 40 mg po Diet -Heart healthy diet Code status -Full code Patient seen, examined and plan discussed with Dr. Mac Dumont, pgy-2 <Shelton Watts - Last Filed: 02/09/18 10:32> Results - Vital Signs Recent Vital Signs: Last Vital Signs Temp 98.1 F 02/09/18 08:46 Pulse 85 02/09/18 08:46 Resp 20 02/09/18 08:46 BP 132/84 02/09/18 08:46 Pulse Ox 93 L 02/09/18 08:46 - Labs Result Diagrams: 02/08/18 21:40 02/08/18 21:40 Labs: Laboratory Results - last 24 hr 02/08/18 02/08/18 02/08/18 21:40 21:40 21:40 WBC 14.2 H RBC 4.38 Hgb 13.1 Hct 39.8 MCV 90.9 MCH 30.0 MCHC 33.0 RDW 13.8 Plt Count 225 MPV 8.5 Neut % (Auto) 72.6 Lymph % (Auto) 18.8 L [place] % (Auto) 7.6 Eos % (Auto) 0.0 Baso % (Auto) 1.0 Neut # (Auto) 10.3 H Lymph # (Auto) 2.7 [place] # (Auto) 1.1 H Eos # (Auto) 0.0 Baso # (Auto) 0.1 PT 12.3 INR 1.1 APTT 31.3 pO2 VBG pH VBG pCO2 VBG HCO3 VBG Total CO2 VBG O2 Sat (Calc) VBG Base Excess VBG Potassium Glucose Lactate FiO2 Sodium 141 Potassium 4.5 Chloride 103 Carbon Dioxide 24 Anion Gap 19 BUN 15 Creatinine 0.9 Est GFR ( Amer) > 60 Est GFR (Non-Af Amer) > 60 POC Glucose (mg/dL) Random Glucose 171 H Calcium 10.1 Phosphorus 3.4 Magnesium 1.7 Total Bilirubin 0.5 AST 21 ALT 27 Alkaline Phosphatase 89 Total Creatine Kinase Troponin I < 0.0120 Total Protein 8.0 Albumin 4.3 Globulin 3.7 Albumin/Globulin Ratio 1.2 TSH 3rd Generation Venous Blood Potassium Urine Color Urine Clarity Urine pH Ur Specific [place] Urine Protein Urine Glucose (UA) Urine Ketones Urine Blood Urine Nitrate Urine Bilirubin Urine Urobilinogen Ur Leukocyte Esterase Urine RBC (Auto) Urine Microscopic WBC Ur Squamous Epith Cells Urine Bacteria Hyaline Casts 02/08/18 02/09/18 02/09/18 21:45 00:05 01:08 WBC RBC Hgb Hct MCV MCH MCHC RDW Plt Count MPV Neut % (Auto) Lymph % (Auto) [place] % (Auto) Eos % (Auto) Baso % (Auto) Neut # (Auto) Lymph # (Auto) [place] # (Auto) Eos # (Auto) Baso # (Auto) PT INR APTT pO2 21 L VBG pH 7.45 H VBG pCO2 38 L VBG HCO3 25.2 VBG Total CO2 27.6 VBG O2 Sat (Calc) 40.5 VBG Base Excess 2.4 H VBG Potassium 4.2 Glucose 136 H Lactate 1.3 FiO2 21.0 Sodium 137.0 Potassium Chloride 103.0 Carbon Dioxide Anion Gap BUN Creatinine Est GFR ( Amer) Est GFR (Non-Af Amer) POC Glucose (mg/dL) 159 H Random Glucose Calcium Phosphorus Magnesium Total Bilirubin AST ALT Alkaline Phosphatase Total Creatine Kinase Troponin I Total Protein Albumin Globulin Albumin/Globulin Ratio TSH 3rd Generation Venous Blood Potassium 4.2 Urine Color Yellow Urine Clarity Cloudy Urine pH 6.0 Ur Specific [place] 1.017 Urine Protein 30 Urine Glucose (UA) Neg Urine Ketones Trace Urine Blood Small Urine Nitrate Positive H Urine Bilirubin Negative Urine Urobilinogen 0.2-1.0 Ur Leukocyte Esterase Small Urine RBC (Auto) 10 H Urine Microscopic WBC 17 H Ur Squamous Epith Cells 1 Urine Bacteria Rare Hyaline Casts 0-2 02/09/18 02/09/18 03:45 05:34 WBC RBC Hgb Hct MCV MCH MCHC RDW Plt Count MPV Neut % (Auto) Lymph % (Auto) [place] % (Auto) Eos % (Auto) Baso % (Auto) Neut # (Auto) Lymph # (Auto) [place] # (Auto) Eos # (Auto) Baso # (Auto) PT INR APTT pO2 VBG pH VBG pCO2 VBG HCO3 VBG Total CO2 VBG O2 Sat (Calc) VBG Base Excess VBG Potassium Glucose Lactate FiO2 Sodium Potassium Chloride Carbon Dioxide Anion Gap BUN Creatinine Est GFR ( Amer) Est GFR (Non-Af Amer) POC Glucose (mg/dL) 241 H Random Glucose Calcium Phosphorus Magnesium Total Bilirubin AST ALT Alkaline Phosphatase Total Creatine Kinase 34 Troponin I < 0.0120 Total Protein Albumin Globulin Albumin/Globulin Ratio TSH 3rd Generation 3.71 Venous Blood Potassium Urine Color Urine Clarity Urine pH Ur Specific [place] Urine Protein Urine Glucose (UA) Urine Ketones Urine Blood Urine Nitrate Urine Bilirubin Urine Urobilinogen Ur Leukocyte Esterase Urine RBC (Auto) Urine Microscopic WBC Ur Squamous Epith Cells Urine Bacteria Hyaline Casts Attending/Attestation - Attestation I have personally seen and examined this patient.: Yes I have fully participated in the care of the patient.: Yes I have reviewed all pertinent clinical information: Yes Notes (Text): 02/09/18 10:13 I saw, examined and discussed this patient with Dr Dumont. I agree with the assessment and plan outlined which indicate my direct input. This is a 77 years old female with hx of Dementia, Hydrocephalus with a EXTRUDING PRESS OPERATOR shunt in place, unsteady gait with urinary incontinence who was brought to the ED because of generalized weakness with worsening of confusion state. This patient is being treated for Pyelonephritis with Ceftriaxone. I will consult with Dr Colindres the Neurosurgeon in regards to the Hydrocephalus where the head CT report 'a slightly greater prominence of the ventricle system compared with previous study. Shunt catheter terminate in the frontal horn of the left lateral ventricle'. Order Physical therapy and restart home medications. Shelton Watts MD
[2018-02-09] MEDS ORDERED: Sodium Chloride 0.9% 1,000 ML IV SCH (02:15)
[2018-02-09] MEDS: Levothyroxine 25 MCG TAB PO SCH (06:39)
[2018-02-09] MEDS: Sodium Chloride 0.9% 1,000 ML IV SCH ×2 (06:46→16:42)
[2018-02-09] MEDS: Insulin Lispro (humaLOG) 100 Units/ml Inj SC SCH ×4 (08:13→22:48)
[2018-02-09] MEDS: Divalproex 250 mg DR(BID formulation) PO SCH ×2 (08:16→16:30)
[2018-02-09] MEDS: Pantoprazole 40 mg EC Tab PO SCH (08:16)
[2018-02-09] MEDS: Enoxaparin 40 mg Syringe SC SCH (08:17)
--- NOTE | 2018-02-09 11:02 | CARD ---
APPROVED REPORT Date of service: 02/08/2018 EKG Measurement Heart [id number] MD [id number] <Conclusion> Normal sinus rhythm Voltage criteria for left ventricular hypertrophy Abnormal ECG
--- NOTE | 2018-02-09 11:04 | CT ---
Date of service: 02/08/2018 PROCEDURE: CT HEAD WITHOUT CONTRAST. HISTORY: Altered mental status, headache COMPARISON: 08/07/2017. CT head TECHNIQUE: Axial computed tomography images were obtained through the head/brain without intravenous contrast. Supplemental Coronal and Sagittal projections created and reviewed. Radiation dose: Total exam DLP = 773.92 mGy-cm. This CT exam was performed using one or more of the following dose reduction techniques: Automated exposure control, adjustment of the mA and/or kV according to patient size, and/or use of iterative reconstruction technique. FINDINGS: HEMORRHAGE: No intracranial hemorrhage. BRAIN: Periventricular small vessel disease. Cortical atrophy and chronic microvascular ischemic change. Physiological basal ganglia calcifications are stable. VENTRICLES: Stable appearance of ventriculostomy catheter. Stable appearance of ventricles. CALVARIUM: Ventriculostomy related defect. This is in the right frontal of region. PARANASAL SINUSES: Unremarkable as visualized. No significant inflammatory changes. MASTOID AIR CELLS: Unremarkable as visualized. No inflammatory changes. OTHER FINDINGS: None. IMPRESSION: No acute intracranial abnormalities. No significant findings to account for the clinical presentation. No significant interval change compared to the prior examination(s). Concordant results (preliminary interpretation) provided by ANGEL DIALLO. Procedure Completed: 21:34. Preliminary Report: Dictated and Authenticated: 21:52. Final Interpretation: 11:00. February 09, 2018
--- NOTE | 2018-02-09 11:06 | CP.PCM.PN ---
<Anabell Vincent - Last Filed: 02/09/18 13:43> Subjective - Date & Time of Evaluation Date of Evaluation: 02/09/18 Time of Evaluation: 11:03 - Subjective Subjective: 77 yo female seen at bedside resting comfortably with her . Patient is seen working with the physical therapist. Patients denies any acute overnight events. Admits to generalized pain all over the body. Denies any other medical complain. Denies recent f/n/v/sob/d/constipation Objective - Vital Signs/Intake and Output Vital Signs (last 24 hours): Temp Pulse Resp BP Pulse Ox 98.1 F 85 20 132/84 93 L 02/09/18 08:46 02/09/18 08:46 02/09/18 08:46 02/09/18 08:46 02/09/18 08:46 - Medications Medications: Current Medications Acetaminophen (Tylenol 325mg Tab) 650 mg PO Q6 PRN PRN Reason: Fever >100.4 F Aspirin (Ecotrin) 81 mg PO DAILY [facility] Last Admin: 02/09/18 08:16 Dose: 81 mg Buspirone HCl (Buspar) 10 mg PO DAILY [facility] Last Admin: 02/09/18 08:15 Dose: 10 mg Divalproex Sodium (Depakote Dr(*Bid*)) 250 mg PO BID [facility] Last Admin: 02/09/18 08:16 Dose: 250 mg Donepezil HCl (Aricept) 5 mg PO DAILY [facility] Last Admin: 02/09/18 08:20 Dose: 5 mg Enoxaparin Sodium (Lovenox) 40 mg SC DAILY [facility]; Protocol Last Admin: 02/09/18 08:17 Dose: 40 mg Escitalopram Oxalate (Lexapro) 20 mg PO DAILY [facility] Last Admin: 02/09/18 08:16 Dose: 20 mg Ceftriaxone Sodium 1 gm/ (Sodium Chloride) 100 mls @ 100 mls/hr IVPB DAILY [facility]; Protocol Last Admin: 02/09/18 08:21 Dose: 100 mls/hr Sodium Chloride (Sodium Chloride 0.9%) 1,000 mls @ 100 mls/hr IV .Q10H [facility] Stop: 02/10/18 12:04 Last Admin: 02/09/18 06:46 Dose: Not Given Ibuprofen (Motrin Tab) 400 mg PO Q6H PRN PRN Reason: Pain, moderate (4-7) Insulin Human Lispro (Humalog) 0 units SC ACHS [facility]; Protocol Last Admin: 02/09/18 08:13 Dose: 3 unit Levothyroxine Sodium (Synthroid) 25 mcg PO DAILY@0630 [facility] Last Admin: 02/09/18 06:39 Dose: 25 mcg Metformin HCl (Glucophage) 1,000 mg PO DAILY [facility] Last Admin: 02/09/18 08:16 Dose: 1,000 mg Ondansetron HCl (Zofran Inj) 4 mg IVP Q6 PRN PRN Reason: Nausea/Vomiting Pantoprazole Sodium (Protonix Ec Tab) 40 mg PO DAILY [facility] Last Admin: 02/09/18 08:16 Dose: 40 mg Pravastatin Sodium (Pravachol) 40 mg PO HS [facility] - Labs Labs: 02/08/18 21:40 02/08/18 21:40 PT 12.3 Seconds (9.8-13.1) 02/08/18 21:40 INR 1.1 02/08/18 21:40 APTT 31.3 Seconds (25.6-37.1) 02/08/18 21:40 - Constitutional Appears: Well, Non-toxic, No Acute Distress, Chronically Ill, Other (demented ) - Head Exam Head Exam: ATRAUMATIC, NORMAL INSPECTION - Eye Exam Eye Exam: Normal appearance, PERRL - ENT Exam ENT Exam: Mucous Membranes Moist, Normal Oropharynx - Neck Exam Neck Exam: Full ROM, Meningismus, Normal Inspection - Respiratory Exam Respiratory Exam: Clear to Ausculation Bilateral, NORMAL BREATHING PATTERN. absent: Rhonchi, Wheezes - Cardiovascular Exam Cardiovascular Exam: REGULAR RHYTHM, +S1, +S2 - GI/Abdominal Exam GI & Abdominal Exam: Soft, Normal Bowel Sounds. absent: Distended, Rebound Additional comments: + lower abdominal tenderness Bilateral flank pain - Extremities Exam Extremities Exam: Normal Capillary Refill, Pedal Edema. absent: Calf Tenderness - Back Exam Back Exam: CVA tenderness (L), CVA tenderness (R) - Neurological Exam Neurological Exam: Alert, CN II-XII Intact Additional comments: Oriented to place and person but not time handgrip strength 4/5 motor strength both upper and lower extremities 4/5 Sensory intact - Psychiatric Exam Psychiatric exam: Anxious, Normal Affect - Skin Skin Exam: Dry, Normal Color, Warm Assessment and Plan - Assessment and Plan (Free Text) Assessment: 77 year old female with pmhx of hydrocephalus s/p FUEL YARD OPERATOR shut in place, seizures disorder dementia, HTN, DMII, HLD and urinary incontinence seen at bedside ac companied by her with complaints of lower extremity weakness since this morning. UA shows + leukocyte and nitrite. CBC shows WBC of 14.2. Patient is admitted for pyelonephritis. Plan: Acute complicated urinary tract infection -UA : + leukocyte and nitrite -CBC: WBC of 14.2 -Received 1 dose of ceftriaxone in ED -Continue ceftriaxone 1gm IVPB qdaily -IV fluids NS @125 CC/HR -F/U urine cx and blood cx- pending Hydrocephalus s/p FUEL YARD OPERATOR shunt in place -CT of head w/o contrast shows slightly greater prominence of ventricular system compared with study. Shunt catheter terminates in the frontal horn of the left lateral ventricle. -Neuro consult ordered- recommendations appreciated. - Per Dr. Rodriguez EEG ordered, MRI of the brain without contrast ordered Generalized weakness -troponin x 1 neg -EKG: NSR @81 bpm, No ST elevation or Q wave seen. -PT/OT on board -troponin x 2 neg -Abdomen and pelvis CT with PO & IV contrast ordered Dementia -continue Aricept 5 mg po Diabetes mellitus II Metformin 1000 mg po daily on hold -Regular insulin via sliding scale while in hospital, check accu-check and hypoglycemic protocol Hyperlipidemia -c/w pravastatin 40 mg po hs Seizure disorder -depakoate 250 mg BID DVT prophylaxis -Lovenox 40 mg sc GI prophylaxis -Protonix 40 mg po Diet -Heart healthy diet Code status -Full code <Maryjane Hayward - Last Filed: 02/09/18 16:49> Objective - Vital Signs/Intake and Output Vital Signs (last 24 hours): Temp Pulse Resp BP Pulse Ox 98.1 F 68 20 132/84 95 02/09/18 08:46 02/09/18 10:45 02/09/18 08:46 02/09/18 08:46 02/09/18 10:45 - Medications Medications: Current Medications Acetaminophen (Tylenol 325mg Tab) 650 mg PO Q6 PRN PRN Reason: Fever >100.4 F Aspirin (Ecotrin) 81 mg PO DAILY [facility] Last Admin: 02/09/18 08:16 Dose: 81 mg Buspirone HCl (Buspar) 10 mg PO DAILY [facility] Last Admin: 02/09/18 08:15 Dose: 10 mg Dextrose (Dextrose 50% Inj) 0 ml IV STAT PRN; Protocol PRN Reason: Hypoglycemia Protocol Dextrose (Glutose 15) 0 gm PO ONCE PRN; Protocol PRN Reason: Hypoglycemia Protocol Divalproex Sodium (Depakote Dr(*Bid*)) 250 mg PO BID [facility] Last Admin: 02/09/18 16:30 Dose: 250 mg Donepezil HCl (Aricept) 5 mg PO DAILY [facility] Last Admin: 02/09/18 08:20 Dose: 5 mg Enoxaparin Sodium (Lovenox) 40 mg SC DAILY [facility]; Protocol Last Admin: 02/09/18 08:17 Dose: 40 mg Escitalopram Oxalate (Lexapro) 20 mg PO DAILY [facility] Last Admin: 02/09/18 08:16 Dose: 20 mg Glucagon (Glucagen Diagnostic Kit) 0 mg IM STAT PRN; Protocol PRN Reason: Hypoglycemia Protocol Ceftriaxone Sodium 1 gm/ (Sodium Chloride) 100 mls @ 100 mls/hr IVPB DAILY [facility]; Protocol Last Admin: 02/09/18 08:21 Dose: 100 mls/hr Sodium Chloride (Sodium Chloride 0.9%) 1,000 mls @ 100 mls/hr IV .Q10H [facility] Stop: 02/10/18 12:04 Last Admin: 02/09/18 16:42 Dose: 100 mls/hr Ibuprofen (Motrin Tab) 400 mg PO Q6H PRN PRN Reason: Pain, moderate (4-7) Insulin Human Lispro (Humalog) 0 units SC ACHS [facility]; Protocol Last Admin: 02/09/18 12:25 Dose: Not Given Levothyroxine Sodium (Synthroid) 25 mcg PO DAILY@0630 [facility] Last Admin: 02/09/18 06:39 Dose: 25 mcg Ondansetron HCl (Zofran Inj) 4 mg IVP Q6 PRN PRN Reason: Nausea/Vomiting Pantoprazole Sodium (Protonix Ec Tab) 40 mg PO DAILY [facility] Last Admin: 02/09/18 08:16 Dose: 40 mg Pravastatin Sodium (Pravachol) 40 mg PO HS [facility] - Labs Labs: 02/08/18 21:40 02/08/18 21:40 PT 12.3 Seconds (9.8-13.1) 02/08/18 21:40 INR 1.1 02/08/18 21:40 APTT 31.3 Seconds (25.6-37.1) 02/08/18 21:40 Attending/Attestation - Attestation I have personally seen and examined this patient.: Yes I have fully participated in the care of the patient.: Yes I have reviewed all pertinent clinical information, including history, physical exam and plan: Yes Notes (Text): Increase In Ventricles on CT , Hx of FUEL YARD OPERATOR Shunt - Neurosurgery consulted - plan for outpt ff up , possible FUEL YARD OPERATOR shunt eval once infection is clear - neuro consult- Dr Rodriguez rec MRI and EEG UTI ? Acute Pyelonephritis - CT of abd and pelvi - Blood and urine c/s - cont IV Ceftriaxone
[2018-02-09] MEDS ORDERED: Iohexol 240 (50 ml) PO ONE ×2 (11:29→13:42)
--- NOTE | 2018-02-09 12:20 | RAD ---
Date of service: 02/08/2018 HISTORY: weakness COMPARISON: 04/04/2015 FINDINGS: LUNGS: No active pulmonary disease. PLEURA: No significant pleural effusion identified, no pneumothorax apparent. CARDIOVASCULAR: No atherosclerotic calcification present Normal. OSSEOUS STRUCTURES: No significant abnormalities. VISUALIZED UPPER ABDOMEN: Normal. OTHER FINDINGS: Ventriculostomy catheter courses through the neck chest and upper abdomen. This represents a new finding. IMPRESSION: No active disease. No significant interval change compared to the prior examination(s).
[2018-02-09] MEDS ORDERED: Glucagon Recombinant 1 mg Inj IM PRN (13:46)
[2018-02-09] MEDS ORDERED: Dextrose 50% SYRINGE Inj (50 ml) IV PRN (13:46)
--- NOTE | 2018-02-09 15:36 | CP.PCM.PN ---
Subjective - Date & Time of Evaluation Date of Evaluation: 02/09/18 Time of Evaluation: 15:34 - Subjective Subjective: admitted with pyelonephritis CT head vents slightly larger need to identify who and where shunt was placed espescially type of shunt would not revise untill medically clear from infection, preferably on an elective admission will talk to Objective - Vital Signs/Intake and Output Vital Signs (last 24 hours): Temp Pulse Resp BP Pulse Ox 98.1 F 68 20 132/84 95 02/09/18 08:46 02/09/18 10:45 02/09/18 08:46 02/09/18 08:46 02/09/18 10:45 - Medications Medications: Current Medications Acetaminophen (Tylenol 325mg Tab) 650 mg PO Q6 PRN PRN Reason: Fever >100.4 F Aspirin (Ecotrin) 81 mg PO DAILY [facility] Last Admin: 02/09/18 08:16 Dose: 81 mg Buspirone HCl (Buspar) 10 mg PO DAILY [facility] Last Admin: 02/09/18 08:15 Dose: 10 mg Dextrose (Dextrose 50% Inj) 0 ml IV STAT PRN; Protocol PRN Reason: Hypoglycemia Protocol Dextrose (Glutose 15) 0 gm PO ONCE PRN; Protocol PRN Reason: Hypoglycemia Protocol Divalproex Sodium (Depakote Dr(*Bid*)) 250 mg PO BID [facility] Last Admin: 02/09/18 08:16 Dose: 250 mg Donepezil HCl (Aricept) 5 mg PO DAILY [facility] Last Admin: 02/09/18 08:20 Dose: 5 mg Enoxaparin Sodium (Lovenox) 40 mg SC DAILY [facility]; Protocol Last Admin: 02/09/18 08:17 Dose: 40 mg Escitalopram Oxalate (Lexapro) 20 mg PO DAILY [facility] Last Admin: 02/09/18 08:16 Dose: 20 mg Glucagon (Glucagen Diagnostic Kit) 0 mg IM STAT PRN; Protocol PRN Reason: Hypoglycemia Protocol Ceftriaxone Sodium 1 gm/ (Sodium Chloride) 100 mls @ 100 mls/hr IVPB DAILY [facility]; Protocol Last Admin: 02/09/18 08:21 Dose: 100 mls/hr Sodium Chloride (Sodium Chloride 0.9%) 1,000 mls @ 100 mls/hr IV .Q10H [facility] Stop: 02/10/18 12:04 Last Admin: 02/09/18 06:46 Dose: Not Given Ibuprofen (Motrin Tab) 400 mg PO Q6H PRN PRN Reason: Pain, moderate (4-7) Insulin Human Lispro (Humalog) 0 units SC [facility]; Protocol Last Admin: 02/09/18 12:25 Dose: Not Given Levothyroxine Sodium (Synthroid) 25 mcg PO DAILY@0630 [facility] Last Admin: 02/09/18 06:39 Dose: 25 mcg Ondansetron HCl (Zofran Inj) 4 mg IVP Q6 PRN PRN Reason: Nausea/Vomiting Pantoprazole Sodium (Protonix Ec Tab) 40 mg PO DAILY [facility] Last Admin: 02/09/18 08:16 Dose: 40 mg Pravastatin Sodium (Pravachol) 40 mg PO HS [facility] - Labs Labs: 02/08/18 21:40 02/08/18 21:40 PT 12.3 Seconds (9.8-13.1) 02/08/18 21:40 INR 1.1 02/08/18 21:40 APTT 31.3 Seconds (25.6-37.1) 02/08/18 21:40
[2018-02-09] MEDS ORDERED: Sodium Chloride 0.9% 50 ML IV ONE (17:36)
[2018-02-09] MEDS ORDERED: Iohexol 300 100 ML IJ ONE (17:36)
[2018-02-09] MEDS: Pravastatin Sodium 40 MG TAB PO SCH (21:47)
[2018-02-10] MEDS: Sodium Chloride 0.9% 1,000 ML IV SCH (04:12)
[2018-02-10] MEDS: Levothyroxine 25 MCG TAB PO SCH (05:59)
[2018-02-10 06:23] LABS: BASO # 0.1 K/uL (0.0-0.2); BASO % 0.7 % (0.0-2.0); EOS # 0.1 K/uL (0.0-0.7); EOS % 0.7 % (0.0-4.0); HEMOGLOBIN 12.4 g/dL (12.0-16.0); LYMPH # 3.3 K/uL (1.0-4.3); LYMPH % 28.8 % (20.0-40.0); MEAN CELL VOLUME 90.7 fl (81.0-99.0); MEAN CORPUSCULAR HEMOGLOBIN 30.7 pg (27.0-31.0); MEAN CORPUSCULAR HGB CONC 33.8 g/dL (33.0-37.0); MEAN PLATELET VOLUME 8.7 fl (7.2-11.7); MONO # 1.3 K/uL (0.0-0.8); MONO % 11.5 % (0.0-10.0); NEUT # 6.7 K/uL (1.8-7.0); NEUT % 58.3 % (50.0-75.0); RBC 4.04 Mil/uL (3.80-5.20); RED CELL DISTRIBUTION WIDTH 13.5 % (11.5-14.5); WHITE BLOOD COUNT 11.6 K/uL (4.8-10.8)
[2018-02-10 06:29] LABS: BLOOD UREA NITROGEN 12 mg/dl (7-17); CALCIUM 9.3 mg/dL (8.4-10.2); GFR NON-AFRICAN AMERICAN > 60
--- NOTE | 2018-02-10 06:45 | CP.PCM.PN ---
Subjective - Date & Time of Evaluation Date of Evaluation: 02/10/18 Time of Evaluation: 06:44 - Subjective Subjective: 77 yo female seen at bedside resting comfortably with her . Denies any other medical complain. Denies recent f/n/v/sob/d/constipation Objective - Vital Signs/Intake and Output Vital Signs (last 24 hours): Temp Pulse Resp BP Pulse Ox 98 F 76 18 134/84 95 02/10/18 00:14 02/10/18 00:14 02/10/18 00:14 02/10/18 00:14 02/10/18 00:14 - Medications Medications: Current Medications Acetaminophen (Tylenol 325mg Tab) 650 mg PO Q6 PRN PRN Reason: Fever >100.4 F Aspirin (Ecotrin) 81 mg PO DAILY [facility] Last Admin: 02/09/18 08:16 Dose: 81 mg Buspirone HCl (Buspar) 10 mg PO DAILY [facility] Last Admin: 02/09/18 08:15 Dose: 10 mg Dextrose (Dextrose 50% Inj) 0 ml IV STAT PRN; Protocol PRN Reason: Hypoglycemia Protocol Dextrose (Glutose 15) 0 gm PO ONCE PRN; Protocol PRN Reason: Hypoglycemia Protocol Divalproex Sodium (Depakote Dr(*Bid*)) 250 mg PO BID [facility] Last Admin: 02/09/18 16:30 Dose: 250 mg Donepezil HCl (Aricept) 5 mg PO DAILY [facility] Last Admin: 02/09/18 08:20 Dose: 5 mg Enoxaparin Sodium (Lovenox) 40 mg SC DAILY [facility]; Protocol Last Admin: 02/09/18 08:17 Dose: 40 mg Escitalopram Oxalate (Lexapro) 20 mg PO DAILY [facility] Last Admin: 02/09/18 08:16 Dose: 20 mg Glucagon (Glucagen Diagnostic Kit) 0 mg IM STAT PRN; Protocol PRN Reason: Hypoglycemia Protocol Ceftriaxone Sodium 1 gm/ (Sodium Chloride) 100 mls @ 100 mls/hr IVPB DAILY [facility]; Protocol Last Admin: 02/09/18 08:21 Dose: 100 mls/hr Sodium Chloride (Sodium Chloride 0.9%) 1,000 mls @ 100 mls/hr IV .Q10H [facility] Stop: 02/10/18 12:04 Last Admin: 02/10/18 04:12 Dose: 100 mls/hr Ibuprofen (Motrin Tab) 400 mg PO Q6H PRN PRN Reason: Pain, moderate (4-7) Insulin Human Lispro (Humalog) 0 units SC [facility]S [facility]; Protocol Last Admin: 02/09/18 22:48 Dose: Not Given Levothyroxine Sodium (Synthroid) 25 mcg PO DAILY@0630 [facility] Last Admin: 02/10/18 05:59 Dose: 25 mcg Ondansetron HCl (Zofran Inj) 4 mg IVP Q6 PRN PRN Reason: Nausea/Vomiting Pantoprazole Sodium (Protonix Ec Tab) 40 mg PO DAILY [facility] Last Admin: 02/09/18 08:16 Dose: 40 mg Pravastatin Sodium (Pravachol) 40 mg PO HS [facility] Last Admin: 02/09/18 21:47 Dose: 40 mg - Labs Labs: 02/10/18 05:55 02/10/18 05:55 PT 12.3 Seconds (9.8-13.1) 02/08/18 21:40 INR 1.1 02/08/18 21:40 APTT 31.3 Seconds (25.6-37.1) 02/08/18 21:40 - Constitutional Appears: Well, Non-toxic, Chronically Ill - Head Exam Head Exam: ATRAUMATIC, NORMAL INSPECTION - Eye Exam Eye Exam: Normal appearance, PERRL - ENT Exam ENT Exam: Mucous Membranes Moist, Normal Oropharynx - Neck Exam Neck Exam: Full ROM, Meningismus, Normal Inspection - Respiratory Exam Respiratory Exam: Clear to Ausculation Bilateral, NORMAL BREATHING PATTERN. absent: Rhonchi, Wheezes - Cardiovascular Exam Cardiovascular Exam: REGULAR RHYTHM, +S1, +S2 - GI/Abdominal Exam GI & Abdominal Exam: Soft, Normal Bowel Sounds. absent: Distended, Rebound - Extremities Exam Extremities Exam: Calf Tenderness, Normal Capillary Refill, Pedal Edema - Back Exam Back Exam: CVA tenderness (L), CVA tenderness (R), tenderness - Neurological Exam Neurological Exam: Alert, CN II-XII Intact - Psychiatric Exam Psychiatric exam: Anxious, Normal Affect - Skin Skin Exam: Normal Color Assessment and Plan - Assessment and Plan (Free Text) Assessment: 77 year old female with pmhx of hydrocephalus s/p [employer]IST shut in place, seizures disorder dementia, HTN, DMII, HLD and urinary incontinence seen at bedside accompanied by her with complaints of lower extremity weakness since this morning. UA shows + leukocyte and nitrite. CBC shows WBC of 14.2. Patient is admitted for pyelonephritis Plan: Acute complicated urinary tract infection -UA : + leukocyte and nitrite -CBC: WBC of 14.2 -Received 1 dose of ceftriaxone in ED -Continue ceftriaxone 1gm IVPB qdaily -IV fluids NS @125 CC/HR -F/U urine cx (no growth after 24 hours) and blood cx(no growth after 24 hours) Hydrocephalus s/p [employer] shunt in place -CT of head w/o contrast shows slightly greater prominence of ventricular system compared with study. Shunt catheter terminates in the frontal horn of the left lateral ventricle. -Neuro consult ordered- recommendations appreciated. - MRI of the brain without contrastage appropriate parenchymal atrophy, [employer] shunt in place, several small subcortical chronic right posterior parietal and bilateral occipital infarcts ( new since the prior study) Generalized weakness -troponin x 1 neg -EKG: NSR @81 bpm, No ST elevation or Q wave seen. -PT/OT on board -troponin x 2 neg -Abdomen and pelvis CT with PO & IV contrast: no acute intraabdominal abnormality Dementia -continue Aricept 5 mg po Diabetes mellitus II Metformin 1000 mg po daily on hold -Regular insulin via sliding scale while in hospital, check accu-check and hypoglycemic protocol Hyperlipidemia -c/w pravastatin 40 mg po hs Seizure disorder -depakoate 250 mg BID DVT prophylaxis -Lovenox 40 mg sc GI prophylaxis -Protonix 40 mg po Diet -Heart healthy diet Code status -Full code
[2018-02-10] MEDS: Insulin Lispro (humaLOG) 100 Units/ml Inj SC SCH ×4 (06:57→23:20)
[2018-02-10] MEDS: Enoxaparin 40 mg Syringe SC SCH (08:51)
[2018-02-10] MEDS: Divalproex 250 mg DR(BID formulation) PO SCH ×2 (08:51→16:12)
[2018-02-10] MEDS: Pantoprazole 40 mg EC Tab PO SCH (08:51)
--- NOTE | 2018-02-10 10:10 | PCM.EEG ---
Electroencephalogram Report - Electroencephalogram Report Procedure Date: 02/09/18 Medication: ASA, Aricept, Pravastatin, Buspirone, depakote Interpretation: Technical Information: This was a 16-channel EEG, 1-channel EKG , performed using an VYou machine., electrodes were applied according to the 10/20 international placement system, impedances were less than 5 K Ohm. Start 3;14 pm End; 4;04 pm Total 50 minutes. Clinical Information: This EEG was performed on a 77 year old patient with a history of dementia and epilepsy. EEG Detail: During resting wakefulness there was a symmetric posterior dominant rhythm at 7 Hz, 30-50 uV, which was reactive to eye opening and closing at times it reached 9 but it was poorly sustanied. Drowsiness was associated with fragmentation of the posterior dominant rhythm and with slow roving eye movements it was seen at 3;31 PM. Sleep was not seen. There were occasional runs of bi frontal slow activity at 5 Hz, lasting 1 to 6 seconds, this was seen during wakefulness and sleep. Hyperventilation was not performed. Photic stimulation was performed and there were no changes in the record. ECG was associated with a normal sinus rhythm. Impression: This is an abnormal EEG record that demonstrate the presence of a mild to moderate non specific diffuse disturbance of cortical activity, this is in keeping with a diffuse addison matter dysfunction. These findings do not support a specific etiology
--- NOTE | 2018-02-10 10:38 | CP.PCM.DIS ---
<Anabell Vincent - Last Filed: 02/10/18 11:42> Provider - Provider Date of Admission: 02/09/18 00:53 Attending physician: Shelton Watts Consults: 02/09/18 06:13 Neuro Surgery Consult Routine Comment: Consulting Provider: Buddy Colindres Consulting Physician: Buddy Colindres Reason for Consult: worsening hydrocephalus with [employer] shunt in the L lateral ventricle 02/09/18 10:33 Neurology Consult Routine Comment: Consulting Provider: Alice Rodriguez Consulting Physician: Alice Rodriguez Reason for Consult: altered mental status; [employer] shunt Time Spent in preparation of Discharge (in minutes): 30 Diagnosis - Discharge Diagnosis (1) Pyelonephritis Status: Acute Hospital Course - Lab Results Lab Results: Micro Results 02/09/18 00:40 Blood Blood Culture - Preliminary NO GROWTH AFTER 24 HOURS 02/09/18 00:57 Blood Blood Culture - Preliminary NO GROWTH AFTER 24 HOURS Most Recent Lab Values WBC 11.6 K/uL (4.8-10.8) H 02/10/18 05:55 RBC 4.04 Mil/uL (3.80-5.20) 02/10/18 05:55 Hgb 12.4 g/dL (12.0-16.0) 02/10/18 05:55 Hct 36.7 % (34.0-47.0) 02/10/18 05:55 MCV 90.7 fl (81.0-99.0) 02/10/18 05:55 MCH 30.7 pg (27.0-31.0) 02/10/18 05:55 MCHC 33.8 g/dL (33.0-37.0) 02/10/18 05:55 RDW 13.5 % (11.5-14.5) 02/10/18 05:55 Plt Count 206 K/uL (130-400) 02/10/18 05:55 MPV 8.7 fl (7.2-11.7) 02/10/18 05:55 Neut % (Auto) 58.3 % (50.0-75.0) 02/10/18 05:55 Lymph % (Auto) 28.8 % (20.0-40.0) 02/10/18 05:55 [place] % (Auto) 11.5 % (0.0-10.0) H 02/10/18 05:55 Eos % (Auto) 0.7 % (0.0-4.0) 02/10/18 05:55 Baso % (Auto) 0.7 % (0.0-2.0) 02/10/18 05:55 Neut # (Auto) 6.7 K/uL (1.8-7.0) 02/10/18 05:55 Lymph # (Auto) 3.3 K/uL (1.0-4.3) 02/10/18 05:55 [place] # (Auto) 1.3 K/uL (0.0-0.8) H 02/10/18 05:55 Eos # (Auto) 0.1 K/uL (0.0-0.7) 02/10/18 05:55 Baso # (Auto) 0.1 K/uL (0.0-0.2) 02/10/18 05:55 PT 12.3 Seconds (9.8-13.1) 02/08/18 21:40 INR 1.1 02/08/18 21:40 APTT 31.3 Seconds (25.6-37.1) 02/08/18 21:40 pO2 21 mm/Hg (30-55) L 02/09/18 01:08 VBG pH 7.45 (7.32-7.43) H 02/09/18 01:08 VBG pCO2 38 mmHg (40-60) L 02/09/18 01:08 VBG HCO3 25.2 mmol/L 02/09/18 01:08 VBG Total CO2 27.6 mmol/L (22-28) 02/09/18 01:08 VBG O2 Sat (Calc) 40.5 % (40-65) 02/09/18 01:08 VBG Base Excess 2.4 mmol/L (0.0-2.0) H 02/09/18 01:08 VBG Potassium 4.2 mmol/L (3.6-5.2) 02/09/18 01:08 Sodium 137.0 mmol/L (132-148) 02/09/18 01:08 Chloride 103.0 mmol/L (98-107) 02/09/18 01:08 Glucose 136 mg/dL (65-105) H 02/09/18 01:08 Lactate 1.3 mmol/L (0.7-2.1) 02/09/18 01:08 FiO2 21.0 % 02/09/18 01:08 Sodium 139 mmol/l (132-148) 02/10/18 05:55 Potassium 4.1 MMOL/L (3.6-5.0) 02/10/18 05:55 Chloride 106 mmol/L (98-107) 02/10/18 05:55 Carbon Dioxide 22 mmol/L (22-30) 02/10/18 05:55 Anion Gap 15 (10-20) 02/10/18 05:55 BUN 12 mg/dl (7-17) 02/10/18 05:55 Creatinine 0.8 mg/dl (0.7-1.2) 02/10/18 05:55 Est GFR ( Amer) > 60 02/10/18 05:55 Est GFR (Non-Af Amer) > 60 02/10/18 05:55 POC Glucose (mg/dL) 131 mg/dL (65-110) H 02/10/18 06:05 Random Glucose 138 mg/dL (65-105) H 02/10/18 05:55 Hemoglobin A1c 7.2 % (4.2-6.5) H D 02/09/18 03:45 Calcium 9.3 mg/dL (8.4-10.2) 02/10/18 05:55 Phosphorus 3.4 mg/dl (2.5-4.5) 02/08/18 21:40 Magnesium 1.7 MG/DL (1.6-2.3) 02/08/18 21:40 Total Bilirubin 0.5 mg/dl (0.2-1.3) 02/08/18 21:40 AST 21 U/L (14-36) 02/08/18 21:40 ALT 27 U/L (9-52) 02/08/18 21:40 Alkaline Phosphatase 89 U/L (38-126) 02/08/18 21:40 Total Creatine Kinase 34 U/L (30-135) 02/09/18 03:45 Troponin I < 0.0120 ng/mL (0.00-0.120) 02/09/18 03:45 Total Protein 8.0 G/DL (6.3-8.2) 02/08/18 21:40 Albumin 4.3 g/dL (3.5-5.0) 02/08/18 21:40 Globulin 3.7 gm/dL (2.2-3.9) 02/08/18 21:40 Albumin/Globulin Ratio 1.2 (1.0-2.1) 02/08/18 21:40 TSH 3rd Generation 3.71 mIU/ML (0.46-4.68) 02/09/18 03:45 Venous Blood Potassium 4.2 mmol/L (3.6-5.2) 02/09/18 01:08 Urine Color Yellow (YELLOW) 02/09/18 00:05 Urine Clarity Cloudy (Clear) 02/09/18 00:05 Urine pH 6.0 (5.0-8.0) 02/09/18 00:05 Ur Specific [place] 1.017 (1.003-1.030) 02/09/18 00:05 Urine Protein 30 mg/dL (NEGATIVE) 02/09/18 00:05 Urine Glucose (UA) Neg mg/dL (Normal) 02/09/18 00:05 Urine Ketones Trace mg/dL (NEGATIVE) 02/09/18 00:05 Urine Blood Small (NEGATIVE) 02/09/18 00:05 Urine Nitrate Positive (NEGATIVE) H 02/09/18 00:05 Urine Bilirubin Negative (NEGATIVE) 02/09/18 00:05 Urine Urobilinogen 0.2-1.0 mg/dL (0.2-1.0) 02/09/18 00:05 Ur Leukocyte Esterase Small Bernice/uL (Negative) 02/09/18 00:05 Urine RBC (Auto) 10 /hpf (0-3) H 02/09/18 00:05 Urine Microscopic WBC 17 /hpf (0-5) H 02/09/18 00:05 Ur Squamous Epith Cells 1 /hpf (0-5) 02/09/18 00:05 Urine Bacteria Rare (<OCC) 02/09/18 00:05 Hyaline Casts 0-2 /hpf (0-2) 02/09/18 00:05 - Hospital Course Hospital Course: 77 year old female with pmhx of hydrocephalus s/p [employer] shut in place, seizures disorder dementia, HTN, DMII, HLD and urinary incontinence seen at bedside accompanied by her with complaints of lower extremity weakness since this morning. UA shows + leukocyte and nitrite. CBC shows WBC of 14.2. Patient was admitted for pyelonephritis Urine cultures and blood cultures were taken and no growth was seen after 24 hour. Patient received ceftriaxone 1gm IV QD. Neurosurgery and neurologist were consulted. No acute interventions. Neursurgeon recommends patient follow up as outpatient. -CT of head w/o contrast shows slightly greater prominence of ventricular system compared with study. Shunt catheter terminates in the frontal horn of the left lateral ventricle. - MRI of the brain without contrastage appropriate parenchymal atrophy, [employer] shunt in place, several small subcortical chronic right posterior parietal and bilateral occipital infarcts ( new since the prior study) Patient will be trasnferred to [facility] for physical therapy. Patient was complaining of abdominal pain, howveer abdomen and pelvis CT with PO & IV contrast: no acute intraabdominal abnormality. Patient will follow up with PCP, neurosurgery, and neurology upon discharge to [facility]. Discharge Exam - Head Exam Head Exam: ATRAUMATIC, NORMAL INSPECTION Discharge Plan - Follow Up Plan Condition: STABLE Disposition: HOME/ ROUTINE Instructions: Urinary Tract Infection in Women (DC), Dysuria (GEN) Additional Instructions: follow up with primary MD 1 week Needs follow up with neurosurgery( Dr. Lopez) Referrals: Buddy Colindres MD [Staff Provider] - Bob Vincent MD [Family Provider] - Bran Headley MD [Staff Provider] - Clinical Quality Measures - Date & Time of Discharge Summary Date of Discharge Summary: 02/10/18 Time of Discharge Summary: 10:31 <Maryjane Hayward - Last Filed: 02/10/18 19:02> Provider - Provider Date of Admission: 02/09/18 00:53 Attending physician: Shelton Watts Consults: 02/09/18 06:13 Neuro Surgery Consult Routine Comment: Consulting Provider: Buddy Colindres Consulting Physician: Buddy Colindres Reason for Consult: worsening hydrocephalus with [employer] shunt in the L lateral ventricle 02/09/18 10:33 Neurology Consult Routine Comment: Consulting Provider: Alice Rodriguez Consulting Physician: Alice Rodriguez Reason for Consult: altered mental status; [employer] shunt Hospital Course - Lab Results Lab Results: Micro Results 02/09/18 00:05 Urine Urine Culture - Preliminary Gram Negative Ashish 02/09/18 00:40 Blood Blood Culture - Preliminary NO GROWTH AFTER 24 HOURS 02/09/18 00:57 Blood Blood Culture - Preliminary NO GROWTH AFTER 24 HOURS Most Recent Lab Values WBC 11.6 K/uL (4.8-10.8) H 02/10/18 05:55 RBC 4.04 Mil/uL (3.80-5.20) 02/10/18 05:55 Hgb 12.4 g/dL (12.0-16.0) 02/10/18 05:55 Hct 36.7 % (34.0-47.0) 02/10/18 05:55 MCV 90.7 fl (81.0-99.0) 02/10/18 05:55 MCH 30.7 pg (27.0-31.0) 02/10/18 05:55 MCHC 33.8 g/dL (33.0-37.0) 02/10/18 05:55 RDW 13.5 % (11.5-14.5) 02/10/18 05:55 Plt Count 206 K/uL (130-400) 02/10/18 05:55 MPV 8.7 fl (7.2-11.7) 02/10/18 05:55 Neut % (Auto) 58.3 % (50.0-75.0) 02/10/18 05:55 Lymph % (Auto) 28.8 % (20.0-40.0) 02/10/18 05:55 [place] % (Auto) 11.5 % (0.0-10.0) H 02/10/18 05:55 Eos % (Auto) 0.7 % (0.0-4.0) 02/10/18 05:55 Baso % (Auto) 0.7 % (0.0-2.0) 02/10/18 05:55 Neut # (Auto) 6.7 K/uL (1.8-7.0) 02/10/18 05:55 Lymph # (Auto) 3.3 K/uL (1.0-4.3) 02/10/18 05:55 [place] # (Auto) 1.3 K/uL (0.0-0.8) H 02/10/18 05:55 Eos # (Auto) 0.1 K/uL (0.0-0.7) 02/10/18 05:55 Baso # (Auto) 0.1 K/uL (0.0-0.2) 02/10/18 05:55 PT 12.3 Seconds (9.8-13.1) 02/08/18 21:40 INR 1.1 02/08/18 21:40 APTT 31.3 Seconds (25.6-37.1) 02/08/18 21:40 pO2 21 mm/Hg (30-55) L 02/09/18 01:08 VBG pH 7.45 (7.32-7.43) H 02/09/18 01:08 VBG pCO2 38 mmHg (40-60) L 02/09/18 01:08 VBG HCO3 25.2 mmol/L 02/09/18 01:08 VBG Total CO2 27.6 mmol/L (22-28) 02/09/18 01:08 VBG O2 Sat (Calc) 40.5 % (40-65) 02/09/18 01:08 VBG Base Excess 2.4 mmol/L (0.0-2.0) H 02/09/18 01:08 VBG Potassium 4.2 mmol/L (3.6-5.2) 02/09/18 01:08 Sodium 137.0 mmol/L (132-148) 02/09/18 01:08 Chloride 103.0 mmol/L (98-107) 02/09/18 01:08 Glucose 136 mg/dL (65-105) H 02/09/18 01:08 Lactate 1.3 mmol/L (0.7-2.1) 02/09/18 01:08 FiO2 21.0 % 02/09/18 01:08 Sodium 139 mmol/l (132-148) 02/10/18 05:55 Potassium 4.1 MMOL/L (3.6-5.0) 02/10/18 05:55 Chloride 106 mmol/L (98-107) 02/10/18 05:55 Carbon Dioxide 22 mmol/L (22-30) 02/10/18 05:55 Anion Gap 15 (10-20) 02/10/18 05:55 BUN 12 mg/dl (7-17) 02/10/18 05:55 Creatinine 0.8 mg/dl (0.7-1.2) 02/10/18 05:55 Est GFR ( Amer) > 60 02/10/18 05:55 Est GFR (Non-Af Amer) > 60 02/10/18 05:55 POC Glucose (mg/dL) 133 mg/dL (65-110) H 02/10/18 15:58 Random Glucose 138 mg/dL (65-105) H 02/10/18 05:55 Hemoglobin A1c 7.2 % (4.2-6.5) H D 02/09/18 03:45 Calcium 9.3 mg/dL (8.4-10.2) 02/10/18 05:55 Phosphorus 3.4 mg/dl (2.5-4.5) 02/08/18 21:40 Magnesium 1.7 MG/DL (1.6-2.3) 02/08/18 21:40 Total Bilirubin 0.5 mg/dl (0.2-1.3) 02/08/18 21:40 AST 21 U/L (14-36) 02/08/18 21:40 ALT 27 U/L (9-52) 02/08/18 21:40 Alkaline Phosphatase 89 U/L (38-126) 02/08/18 21:40 Total Creatine Kinase 34 U/L (30-135) 02/09/18 03:45 Troponin I < 0.0120 ng/mL (0.00-0.120) 02/09/18 03:45 Total Protein 8.0 G/DL (6.3-8.2) 02/08/18 21:40 Albumin 4.3 g/dL (3.5-5.0) 02/08/18 21:40 Globulin 3.7 gm/dL (2.2-3.9) 02/08/18 21:40 Albumin/Globulin Ratio 1.2 (1.0-2.1) 02/08/18 21:40 TSH 3rd Generation 3.71 mIU/ML (0.46-4.68) 02/09/18 03:45 Venous Blood Potassium 4.2 mmol/L (3.6-5.2) 02/09/18 01:08 Urine Color Yellow (YELLOW) 02/09/18 00:05 Urine Clarity Cloudy (Clear) 02/09/18 00:05 Urine pH 6.0 (5.0-8.0) 02/09/18 00:05 Ur Specific [place] 1.017 (1.003-1.030) 02/09/18 00:05 Urine Protein 30 mg/dL (NEGATIVE) 02/09/18 00:05 Urine Glucose (UA) Neg mg/dL (Normal) 02/09/18 00:05 Urine Ketones Trace mg/dL (NEGATIVE) 02/09/18 00:05 Urine Blood Small (NEGATIVE) 02/09/18 00:05 Urine Nitrate Positive (NEGATIVE) H 02/09/18 00:05 Urine Bilirubin Negative (NEGATIVE) 02/09/18 00:05 Urine Urobilinogen 0.2-1.0 mg/dL (0.2-1.0) 02/09/18 00:05 Ur Leukocyte Esterase Small [place]/uL (Negative) 02/09/18 00:05 Urine RBC (Auto) 10 /hpf (0-3) H 02/09/18 00:05 Urine Microscopic WBC 17 /hpf (0-5) H 02/09/18 00:05 Ur Squamous Epith Cells 1 /hpf (0-5) 02/09/18 00:05 Urine Bacteria Rare (<OCC) 02/09/18 00:05 Hyaline Casts 0-2 /hpf (0-2) 02/09/18 00:05 Attending/Attestation - Attestation I have personally seen and examined this patient.: Yes I have fully participated in the care of the patient.: Yes I have reviewed all pertinent clinical information, including history, physical exam and plan: Yes Notes (Text): NPH with increase ventricles on CT , Hx of [employer] Shunt - Neurosurgery consulted - Dr Headley will come to program pt's [employer] shunt - neuro consult- Dr Rodriguez - pt will need PT in [facility] consulted for placement Acute Pyelonephritis Pt had fever yesetrday , still with flank pain and leukocytosis , will keep pt in hospital for IV abx , await Urine c/s - CT of abd and pelvis; neg, no abscess - Blood and urine c/s pending - cont IV Ceftriaxone
--- NOTE | 2018-02-10 13:40 | CP.PCM.PN ---
Subjective - Date & Time of Evaluation Date of Evaluation: 02/10/18 Time of Evaluation: 13:39 - Subjective Subjective: shunt appears to be [employer] programable It was set at 2.5(highest opening pressure) I reduced it to 2.0 At this point she will need a CT in about 2 weeks and i will follow in office from that point Full consult dictated Objective - Vital Signs/Intake and Output Vital Signs (last 24 hours): Temp Pulse Resp BP Pulse Ox 97.9 F 70 19 143/80 96 02/10/18 08:07 02/10/18 08:07 02/10/18 08:07 02/10/18 08:07 02/10/18 08:07 - Medications Medications: Current Medications Acetaminophen (Tylenol 325mg Tab) 650 mg PO Q6 PRN PRN Reason: Fever >100.4 F Aspirin (Ecotrin) 81 mg PO DAILY [facility] Last Admin: 02/10/18 08:51 Dose: 81 mg Buspirone HCl (Buspar) 10 mg PO DAILY [facility] Last Admin: 02/10/18 08:51 Dose: 10 mg Dextrose (Dextrose 50% Inj) 0 ml IV STAT PRN; Protocol PRN Reason: Hypoglycemia Protocol Dextrose (Glutose 15) 0 gm PO ONCE PRN; Protocol PRN Reason: Hypoglycemia Protocol Divalproex Sodium (Depakote Dr(*Bid*)) 250 mg PO BID [facility] Last Admin: 02/10/18 08:51 Dose: 250 mg Donepezil HCl (Aricept) 5 mg PO DAILY [facility] Last Admin: 02/10/18 08:51 Dose: 5 mg Enoxaparin Sodium (Lovenox) 40 mg SC DAILY [facility]; Protocol Last Admin: 02/10/18 08:51 Dose: 40 mg Escitalopram Oxalate (Lexapro) 20 mg PO DAILY [facility] Last Admin: 02/10/18 08:52 Dose: 20 mg Glucagon (Glucagen Diagnostic Kit) 0 mg IM STAT PRN; Protocol PRN Reason: Hypoglycemia Protocol Ceftriaxone Sodium 1 gm/ (Sodium Chloride) 100 mls @ 100 mls/hr IVPB DAILY [facility]; Protocol Last Admin: 02/10/18 08:51 Dose: 100 mls/hr Ibuprofen (Motrin Tab) 400 mg PO Q6H PRN PRN Reason: Pain, moderate (4-7) Insulin Human Lispro (Humalog) 0 units SC ACHS [facility]; Protocol Last Admin: 02/10/18 11:41 Dose: 2 unit Levothyroxine Sodium (Synthroid) 25 mcg PO DAILY@0630 [facility] Last Admin: 02/10/18 05:59 Dose: 25 mcg Ondansetron HCl (Zofran Inj) 4 mg IVP Q6 PRN PRN Reason: Nausea/Vomiting Pantoprazole Sodium (Protonix Ec Tab) 40 mg PO DAILY [facility] Last Admin: 02/10/18 08:51 Dose: 40 mg Pravastatin Sodium (Pravachol) 40 mg PO HS [facility] Last Admin: 02/09/18 21:47 Dose: 40 mg - Labs Labs: 02/10/18 05:55 02/10/18 05:55 PT 12.3 Seconds (9.8-13.1) 02/08/18 21:40 INR 1.1 02/08/18 21:40 APTT 31.3 Seconds (25.6-37.1) 02/08/18 21:40
--- NOTE | 2018-02-10 15:35 | CT ---
Date of service: 02/09/2018 PROCEDURE: CT Abdomen and Pelvis with contrast HISTORY: flank pain and discomfort COMPARISON: 07/09/2011 TECHNIQUE: Contrast dose: 90 mL Omnipaque 300 Radiation dose: Total exam DLP = 778.21 mGy-cm. This CT exam was performed using one or more of the following dose reduction techniques: Automated exposure control, adjustment of the mA and/or kV according to patient size, and/or use of iterative reconstruction technique. FINDINGS: LOWER THORAX: No infiltrate/effusion. Suspect very small hiatal hernia with associated small gastric diverticulum, fluid-filled. In retrospect, this may be evident on examination of 07/09/2011. LIVER: Unremarkable. No gross lesion or ductal dilatation. GALLBLADDER AND BILE DUCTS: Status post cholecystectomy. Mild dilatation of the common bile duct up to approximately 11 mm diameter. Minimal central intrahepatic biliary dilatation. Correlate with laboratory evaluation. PANCREAS: Unremarkable. No gross lesion or ductal dilatation. SPLEEN: Unremarkable. ADRENALS: Unremarkable. No mass. KIDNEYS AND URETERS: Unremarkable. No hydronephrosis. No solid mass. VASCULATURE: Unremarkable. No aortic aneurysm. There is atherosclerotic calcification of the abdominal aorta. BOWEL: Unremarkable. No obstruction. No gross mural thickening. APPENDIX: Not identified. No secondary findings. PERITONEUM: No ascites. Ventriculoperitoneal shunt catheter identified. No pneumoperitoneum. LYMPH NODES: Unremarkable. No enlarged lymph nodes. BLADDER: Unremarkable. REPRODUCTIVE: Status post hysterectomy BONES: No acute fracture. OTHER FINDINGS: None. IMPRESSION: No acute abnormality. Possible small hiatal hernia with gastric diverticulum. Status post cholecystectomy with dilatation of the common bile duct. No evidence of biliary obstruction. Status post hysterectomy. Ventriculoperitoneal shunt catheter noted. No evidence of urinary calculus or urinary tract obstruction.
--- NOTE | 2018-02-10 16:44 | MRI ---
Date of service: 02/09/2018 PROCEDURE: MRI BRAIN WITHOUT CONTRAST HISTORY: altered mental status; STRIPER [employer]AY GUN shunt COMPARISON: Noncontrast head CT from 02/08/2018 and MRI brain with and without intravenous contrast from 04/06/2015 TECHNIQUE: Multiplanar, multisequence MR images of the brain were obtained without intravenous contrast enhancement. FINDINGS: HEMORRHAGE: None DWI: No evidence of an acute or early subacute infarction in the visualized brain. BRAIN PARENCHYMA: Examination is limited due to extensive susceptibility artifacts on the right which limits evaluation of the right cerebral hemisphere. There are severe chronic microangiopathic changes. There is no mass, mass effect or abnormal extra-axial fluid collection. Right trans frontal shunt catheter terminates in the midline at the septum pellucidum. The midline sagittal structures are normal. VENTRICLES: There is redemonstration of moderate dilatation of the ventricles slightly out of proportion to the sulcal prominence related to age-related volume loss. CRANIUM: Unremarkable. ORBITS: Grossly unremarkable. PARANASAL SINUSES/MASTOIDS: Clear VASCULAR SYSTEM: Skull base flow voids intact. OTHER FINDINGS: None. IMPRESSION: Limited examination due to extensive right susceptibility artifacts on the diffusion-weighted imaging and gradient imaging limiting evaluation of the right cerebral hemisphere. Severe chronic microangiopathic changes. Stable moderate dilatation of the ventricles slightly out of proportion to the sulcal prominence, normal pressure hydrocephalus is a consideration. Clinical follow-up is advised. Right transfrontal shunt catheter terminates in the midline at the septum pellucidum.
--- NOTE | 2018-02-10 19:27 | CON ---
DATE: 02/10/2018 REASON FOR CONSULTATION: Altered mental status. HISTORY OF PRESENT ILLNESS: The patient is a 77-year-old female who has been asked for evaluation of altered mental status. The patient was apparently experiencing weakness all over. The patient was also noted to be confused, that is why Neurology consultation was called. The patient denies any focal weakness in arms and legs. She does complaint of mild headaches. Denies any dizziness. The patient was diagnosed with normal pressure hydrocephalus and ventriculoperitoneal shunt was placed when she was in [place]. The patient does have gait dysfunction. Also carried a diagnosis of dementia. REVIEW OF SYSTEMS: Denies any chest pain or shortness of breath. Positive for abdominal pain. Denies any constipation, diarrhea, dysuria, cough, or sputum production. Positive for gait dysfunction. PAST SURGICAL HISTORY: Includes ventriculoperitoneal shunt, bilateral knee replacement. MEDICATIONS: Include Aricept, buspirone, ceftriaxone, Depakote 250 mg b.i.d., aspirin, dextrose, insulin, Lexapro, Lovenox, ibuprofen, Seroquel, Protonix, levothyroxine, Zofran, and Tylenol. ALLERGIES: NO KNOWN DRUG ALLERGIES. SOCIAL HISTORY: Denies smoking, use of alcohol or illicit drugs. FAMILY HISTORY: Reviewed and noncontributory to the case. PHYSICAL EXAMINATION: GENERAL: The patient is an elderly female, lying on the bed, in no acute distress. VITAL SIGNS: Her blood pressure is 143/80, heart rate is 70 per minute, breathing at a rate of 16 per minute, temperature is 97.9 degrees Fahrenheit. HEENT: Head is normocephalic and atraumatic. NECK: Supple. There are no carotid bruits. LUNGS: Clear. CARDIOVASCULAR SYSTEM: S1 and S2 audible. No murmurs. ABDOMEN: Soft, nontender. Bowel sounds present. NEUROLOGIC EXAMINATION: Mental status: The patient is awake and alert, oriented to place and person. She follows simple commands. Cranial nerve examination: Pupils are 3 mm bilaterally, reactive to light. Visual pleitez are full. Extraocular movements are intact. There is no facial asymmetry. Tongue is midline. Motor examination: Tone is normal. Power is 4/5 bilaterally in all extremities. Plantars are downgoing bilaterally. Cerebellar examination: [id number] shows no dysmetria. Gait is deferred at the moment. LABORATORY DATA: Labs reviewed shows WBC of 14.2, on admission today is 11.6, hemoglobin 12.4, hematocrit 36.7, and platelets of 206. INR is 1.1. Sodium is 139, potassium 4.1, chloride 106, carbon dioxide ____, BUN of 12, and creatinine 0.8. Urine showed wbc of 17, with positive nitrites. IMPRESSION: 1. Altered mental status, likely secondary to toxic metabolic encephalopathy with an underlying urinary tract infection. 2. Gait dysfunction with history of normal pressure hydrocephalous, status post ventriculoperitoneal shunt. 3. Memory loss. RECOMMENDATIONS: 1. The patient's mental status seems to be better. 2. The patient to be continued on IV antibiotics. 3. The patient had history of seizure disorder in the past; however, she has no recent seizures. 4. The patient to have an electroencephalogram. 5. The patient to have physical therapy for gait imbalance. 6. The patient may have p.r.n. analgesics, Tylenol or ibuprofen for headaches. 7. Please continue supportive care and other treatment. 8. No further neurological recommendations at present. Please call Neurology on an as needed basis. Thank you for the opportunity to participate in the care of this patient. Alice Rodriguez MD
[2018-02-10] MEDS: Pravastatin Sodium 40 MG TAB PO SCH (21:09)
[2018-02-11] MEDS: Levothyroxine 25 MCG TAB PO SCH (06:19)
[2018-02-11 06:23] LABS: BASO # 0.1 K/uL (0.0-0.2); BASO % 0.7 % (0.0-2.0); EOS # 0.2 K/uL (0.0-0.7); EOS % 2.1 % (0.0-4.0); HEMOGLOBIN 13.1 g/dL (12.0-16.0); LYMPH # 2.6 K/uL (1.0-4.3); MEAN CELL VOLUME 91.6 fl (81.0-99.0); MEAN CORPUSCULAR HEMOGLOBIN 30.1 pg (27.0-31.0); MEAN CORPUSCULAR HGB CONC 32.9 g/dL (33.0-37.0); MEAN PLATELET VOLUME 8.7 fl (7.2-11.7); MONO % 12.7 % (0.0-10.0); NEUT # 4.3 K/uL (1.8-7.0); NEUT % 52.5 % (50.0-75.0); RBC 4.35 Mil/uL (3.80-5.20); RED CELL DISTRIBUTION WIDTH 13.3 % (11.5-14.5); WHITE BLOOD COUNT 8.2 K/uL (4.8-10.8)
[2018-02-11] MEDS: Insulin Lispro (humaLOG) 100 Units/ml Inj SC SCH ×2 (06:55→12:22)
[2018-02-11] MEDS: Pantoprazole 40 mg EC Tab PO SCH (08:35)
[2018-02-11] MEDS: Enoxaparin 40 mg Syringe SC SCH (08:36)
[2018-02-11] MEDS: Divalproex 250 mg DR(BID formulation) PO SCH (08:36)
--- NOTE | 2018-02-11 08:43 | CON ---
DATE: 02/10/2018 HISTORY OF PRESENT ILLNESS: This is a 77-year-old lady who is Danish speaking. History obtained from medical record and her son and her . History of normal pressure hydrocephalus, status post CONTRACT LEAD shunt placement with history of problems walking, urinary incontinence, and dementia. She was brought to the emergency room for general malaise, weakness in all extremities and was found to have urinary tract infection, pyelonephritis. A CT of the head was done showing a slight increase in the size of the ventricle since her last CT in July. PAST MEDICAL HISTORY: Seizure disorder, dementia, hydrocephalus, diabetes, hypertension, colon CA. She has had multiple surgeries in the past. FAMILY HISTORY: Noncontributory. SOCIAL HISTORY: She does not smoke or drink. ALLERGIES: NO ALLERGIES. MEDICATIONS: Listed on the medical record. REVIEW OF SYSTEMS: Reviewed. PHYSICAL EXAMINATION: GENERAL: Awake, alert, confused, following commands in Danish. HEENT: Pupils are equal. Face is symmetric. EOMs are full. EXTREMITIES: Good strength throughout. Did not ambulate the patient. Reflexes are 1/4. ASSESSMENT AND PLAN: I interrogated the shunt using the [employer] r programmer and found that the shunt was set at 2.5 which is the highest opening pressure. I then programmed the shunt open at 2. I did not want it to drop too much to avoid the risk of developing subdural hematomas. I suggest that we obtain a CT of the head in approximately two weeks or sooner if there is a problem neurologically and I will follow her in the office. There is sufficient room in the programmable shunt to continue decreasing the valve until we see an improvement in her condition, or reduction in her ventricular size. If you have any questions, do not hesitate to contact me. Bran Headley MD
--- NOTE | 2018-02-11 11:50 | CP.PCM.DIS ---
<Arelis Monzon Miri - Last Filed: 02/11/18 14:24> Provider - Provider Date of Admission: 02/09/18 00:53 Attending physician: Shelton Watts Consults: 02/09/18 06:13 Neuro Surgery Consult Routine Comment: Consulting Provider: Buddy Colindres Consulting Physician: Buddy Colindres Reason for Consult: worsening hydrocephalus with WELLNESS SPECIALIST shunt in the L lateral ventricle 02/09/18 10:33 Neurology Consult Routine Comment: Consulting Provider: Alice Rodriguez Consulting Physician: Alice Rodriguez Reason for Consult: altered mental status; WELLNESS SPECIALIST shunt Time Spent in preparation of Discharge (in minutes): 30 Diagnosis - Discharge Diagnosis (1) Pyelonephritis Status: Acute Comment: improving, afebrile, no CVA tenderness today, no leukocytosis. Urine culture positive for E coli sensitive to Ceftriaxone. Patient will c/w antibiotic x 5 more days. (2) WELLNESS SPECIALIST (ventriculoperitoneal) shunt status Status: Chronic Comment: follow up with Neurosurgery, Dr. Conner. Needs a CT in 2 weeks. Follow up with Neuro, Dr. Rodriguez Hospital Course - Lab Results Lab Results: Micro Results 02/09/18 00:05 Urine Urine Culture - Final Escherichia Coli 02/09/18 00:40 Blood Blood Culture - Preliminary NO GROWTH AFTER 48 HOURS 02/09/18 00:57 Blood Blood Culture - Preliminary NO GROWTH AFTER 48 HOURS Most Recent Lab Values WBC 8.2 K/uL (4.8-10.8) 02/11/18 05:55 RBC 4.35 Mil/uL (3.80-5.20) 02/11/18 05:55 Hgb 13.1 g/dL (12.0-16.0) 02/11/18 05:55 Hct 39.9 % (34.0-47.0) 02/11/18 05:55 MCV 91.6 fl (81.0-99.0) 02/11/18 05:55 MCH 30.1 pg (27.0-31.0) 02/11/18 05:55 MCHC 32.9 g/dL (33.0-37.0) L 02/11/18 05:55 RDW 13.3 % (11.5-14.5) 02/11/18 05:55 Plt Count 228 K/uL (130-400) 02/11/18 05:55 MPV 8.7 fl (7.2-11.7) 02/11/18 05:55 Neut % (Auto) 52.5 % (50.0-75.0) 02/11/18 05:55 Lymph % (Auto) 32.0 % (20.0-40.0) 02/11/18 05:55 Harmon % (Auto) 12.7 % (0.0-10.0) H 02/11/18 05:55 Eos % (Auto) 2.1 % (0.0-4.0) 02/11/18 05:55 Baso % (Auto) 0.7 % (0.0-2.0) 02/11/18 05:55 Neut # (Auto) 4.3 K/uL (1.8-7.0) 02/11/18 05:55 Lymph # (Auto) 2.6 K/uL (1.0-4.3) 02/11/18 05:55 Harmon # (Auto) 1.0 K/uL (0.0-0.8) H 02/11/18 05:55 Eos # (Auto) 0.2 K/uL (0.0-0.7) 02/11/18 05:55 Baso # (Auto) 0.1 K/uL (0.0-0.2) 02/11/18 05:55 PT 12.3 Seconds (9.8-13.1) 02/08/18 21:40 INR 1.1 02/08/18 21:40 APTT 31.3 Seconds (25.6-37.1) 02/08/18 21:40 pO2 21 mm/Hg (30-55) L 02/09/18 01:08 VBG pH 7.45 (7.32-7.43) H 02/09/18 01:08 VBG pCO2 38 mmHg (40-60) L 02/09/18 01:08 VBG HCO3 25.2 mmol/L 02/09/18 01:08 VBG Total CO2 27.6 mmol/L (22-28) 02/09/18 01:08 VBG O2 Sat (Calc) 40.5 % (40-65) 02/09/18 01:08 VBG Base Excess 2.4 mmol/L (0.0-2.0) H 02/09/18 01:08 VBG Potassium 4.2 mmol/L (3.6-5.2) 02/09/18 01:08 Sodium 137.0 mmol/L (132-148) 02/09/18 01:08 Chloride 103.0 mmol/L (98-107) 02/09/18 01:08 Glucose 136 mg/dL (65-105) H 02/09/18 01:08 Lactate 1.3 mmol/L (0.7-2.1) 02/09/18 01:08 FiO2 21.0 % 02/09/18 01:08 Sodium 139 mmol/l (132-148) 02/10/18 05:55 Potassium 4.1 MMOL/L (3.6-5.0) 02/10/18 05:55 Chloride 106 mmol/L (98-107) 02/10/18 05:55 Carbon Dioxide 22 mmol/L (22-30) 02/10/18 05:55 Anion Gap 15 (10-20) 02/10/18 05:55 BUN 12 mg/dl (7-17) 02/10/18 05:55 Creatinine 0.8 mg/dl (0.7-1.2) 02/10/18 05:55 Est GFR ( Amer) > 60 02/10/18 05:55 Est GFR (Non-Af Amer) > 60 02/10/18 05:55 POC Glucose (mg/dL) 146 mg/dL (65-110) H 02/11/18 05:54 Random Glucose 138 mg/dL (65-105) H 02/10/18 05:55 Hemoglobin A1c 7.2 % (4.2-6.5) H D 02/09/18 03:45 Calcium 9.3 mg/dL (8.4-10.2) 02/10/18 05:55 Phosphorus 3.4 mg/dl (2.5-4.5) 02/08/18 21:40 Magnesium 1.7 MG/DL (1.6-2.3) 02/08/18 21:40 Total Bilirubin 0.5 mg/dl (0.2-1.3) 02/08/18 21:40 AST 21 U/L (14-36) 02/08/18 21:40 ALT 27 U/L (9-52) 02/08/18 21:40 Alkaline Phosphatase 89 U/L (38-126) 02/08/18 21:40 Total Creatine Kinase 34 U/L (30-135) 02/09/18 03:45 Troponin I < 0.0120 ng/mL (0.00-0.120) 02/09/18 03:45 Total Protein 8.0 G/DL (6.3-8.2) 02/08/18 21:40 Albumin 4.3 g/dL (3.5-5.0) 02/08/18 21:40 Globulin 3.7 gm/dL (2.2-3.9) 02/08/18 21:40 Albumin/Globulin Ratio 1.2 (1.0-2.1) 02/08/18 21:40 TSH 3rd Generation 3.71 mIU/ML (0.46-4.68) 02/09/18 03:45 Venous Blood Potassium 4.2 mmol/L (3.6-5.2) 02/09/18 01:08 Urine Color Yellow (YELLOW) 02/09/18 00:05 Urine Clarity Cloudy (Clear) 02/09/18 00:05 Urine pH 6.0 (5.0-8.0) 02/09/18 00:05 Ur Specific [place] 1.017 (1.003-1.030) 02/09/18 00:05 Urine Protein 30 mg/dL (NEGATIVE) 02/09/18 00:05 Urine Glucose (UA) Neg mg/dL (Normal) 02/09/18 00:05 Urine Ketones Trace mg/dL (NEGATIVE) 02/09/18 00:05 Urine Blood Small (NEGATIVE) 02/09/18 00:05 Urine Nitrate Positive (NEGATIVE) H 02/09/18 00:05 Urine Bilirubin Negative (NEGATIVE) 02/09/18 00:05 Urine Urobilinogen 0.2-1.0 mg/dL (0.2-1.0) 02/09/18 00:05 Ur Leukocyte Esterase Small Bernice/uL (Negative) 02/09/18 00:05 Urine RBC (Auto) 10 /hpf (0-3) H 02/09/18 00:05 Urine Microscopic WBC 17 /hpf (0-5) H 02/09/18 00:05 Ur Squamous Epith Cells 1 /hpf (0-5) 02/09/18 00:05 Urine Bacteria Rare (<OCC) 02/09/18 00:05 Hyaline Casts 0-2 /hpf (0-2) 02/09/18 00:05 - Hospital Course Hospital Course: 77 year old female with pmhx of hydrocephalus s/p WELLNESS SPECIALIST shut in place, seizures disorder dementia, HTN, DMII, HLD and urinary incontinence seen at bedside accompanied by her with complaints of lower extremity weakness since this morning. UA shows + leukocyte and nitrite. CBC shows WBC of 14.2. Patient was admitted for pyelonephritis Urine cultures and blood cultures were taken and no growth was seen after 24 hour. Patient received ceftriaxone 1gm IV QD. Neurosurgery and neurologist were consulted. No acute interventions. Neursurgeon recommends patient follow up as outpatient. -CT of head w/o contrast shows slightly greater prominence of ventricular system compared with study. Shunt catheter terminates in the frontal horn of the left lateral ventricle. 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 Patient was complaining of abdominal pain, howveer abdomen and pelvis CT with PO & IV contrast: no acute intraabdominal abnormality. Patient will follow up with PCP, neurosurgery, and neurology upon discharge to [facility]. - Date & Time of H&P Date of H&P: 02/09/18 Time of H&P: 02:00 Discharge Exam - Head Exam Head Exam: ATRAUMATIC, NORMAL INSPECTION - Eye Exam Eye Exam: Normal appearance - ENT Exam ENT Exam: Mucous Membranes Moist - Respiratory Exam Respiratory Exam: Clear to PA & Lateral, NORMAL BREATHING PATTERN. absent: Rales, Rhonchi, Wheezes, Respiratory Distress, Stridor - Cardiovascular Exam Cardiovascular Exam: REGULAR RHYTHM, +S1, +S2 - GI/Abdominal Exam GI & Abdominal Exam: Normal Bowel Sounds, Soft. absent: Distended, Guarding, Rigid, Tenderness - Extremities Exam Extremities exam: normal inspection Additional comments: No edema in lower extremities - Back Exam Back exam: NORMAL INSPECTION. absent: CVA tenderness (L), CVA tenderness (R) - Neurological Exam Neurological exam: Alert, Oriented x3 Additional comments: forgetful - Skin Skin Exam: Dry, Intact, Normal Color Discharge Plan - Discharge Medications Prescriptions: cefTRIAXone 1 gm [Rocephin 1 gram IVPB] 1 gm IVPB DAILY 5 Days #5 bag - Follow Up Plan Condition: IMPROVED Disposition: TRANSF TO SNF Instructions: Urinary Tract Infection in Women (DC), Urinary Tract Infection in Men (DC), Dysuria (GEN) Additional Instructions: follow up with primary MD [address] of the Brain in 2 wks Needs follow up with neurosurgery( Dr. Lopez) after CT scan in 2 wks Referrals: Bran Headley MD [Staff Provider] - Buddy Colindres MD [Staff Provider] - Bob Vincent MD [Family Provider] - <Maryjane Hayward - Last Filed: 02/11/18 17:46> Provider - Provider Date of Admission: 02/09/18 00:53 Attending physician: Shelton Watts Consults: 02/09/18 06:13 Neuro Surgery Consult Routine Comment: Consulting Provider: Buddy Colindres Consulting Physician: Buddy Colindres Reason for Consult: worsening hydrocephalus with WELLNESS SPECIALIST shunt in the L lateral ventricle 02/09/18 10:33 Neurology Consult Routine Comment: Consulting Provider: Alice Rodriguez Consulting Physician: Alice Rodriguez Reason for Consult: altered mental status; WELLNESS SPECIALIST shunt Hospital Course - Lab Results Lab Results: Micro Results 02/09/18 00:05 Urine Urine Culture - Final Escherichia Coli 02/09/18 00:40 Blood Blood Culture - Preliminary NO GROWTH AFTER 48 HOURS 02/09/18 00:57 Blood Blood Culture - Preliminary NO GROWTH AFTER 48 HOURS Most Recent Lab Values WBC 8.2 K/uL (4.8-10.8) 02/11/18 05:55 RBC 4.35 Mil/uL (3.80-5.20) 02/11/18 05:55 Hgb 13.1 g/dL (12.0-16.0) 02/11/18 05:55 Hct 39.9 % (34.0-47.0) 02/11/18 05:55 MCV 91.6 fl (81.0-99.0) 02/11/18 05:55 MCH 30.1 pg (27.0-31.0) 02/11/18 05:55 MCHC 32.9 g/dL (33.0-37.0) L 02/11/18 05:55 RDW 13.3 % (11.5-14.5) 02/11/18 05:55 Plt Count 228 K/uL (130-400) 02/11/18 05:55 MPV 8.7 fl (7.2-11.7) 02/11/18 05:55 Neut % (Auto) 52.5 % (50.0-75.0) 02/11/18 05:55 Lymph % (Auto) 32.0 % (20.0-40.0) 02/11/18 05:55 Harmon % (Auto) 12.7 % (0.0-10.0) H 02/11/18 05:55 Eos % (Auto) 2.1 % (0.0-4.0) 02/11/18 05:55 Baso % (Auto) 0.7 % (0.0-2.0) 02/11/18 05:55 Neut # (Auto) 4.3 K/uL (1.8-7.0) 02/11/18 05:55 Lymph # (Auto) 2.6 K/uL (1.0-4.3) 02/11/18 05:55 Harmon # (Auto) 1.0 K/uL (0.0-0.8) H 02/11/18 05:55 Eos # (Auto) 0.2 K/uL (0.0-0.7) 02/11/18 05:55 Baso # (Auto) 0.1 K/uL (0.0-0.2) 02/11/18 05:55 PT 12.3 Seconds (9.8-13.1) 02/08/18 21:40 INR 1.1 02/08/18 21:40 APTT 31.3 Seconds (25.6-37.1) 02/08/18 21:40 pO2 21 mm/Hg (30-55) L 02/09/18 01:08 VBG pH 7.45 (7.32-7.43) H 02/09/18 01:08 VBG pCO2 38 mmHg (40-60) L 02/09/18 01:08 VBG HCO3 25.2 mmol/L 02/09/18 01:08 VBG Total CO2 27.6 mmol/L (22-28) 02/09/18 01:08 VBG O2 Sat (Calc) 40.5 % (40-65) 02/09/18 01:08 VBG Base Excess 2.4 mmol/L (0.0-2.0) H 02/09/18 01:08 VBG Potassium 4.2 mmol/L (3.6-5.2) 02/09/18 01:08 Sodium 137.0 mmol/L (132-148) 02/09/18 01:08 Chloride 103.0 mmol/L (98-107) 02/09/18 01:08 Glucose 136 mg/dL (65-105) H 02/09/18 01:08 Lactate 1.3 mmol/L (0.7-2.1) 02/09/18 01:08 FiO2 21.0 % 02/09/18 01:08 Sodium 139 mmol/l (132-148) 02/10/18 05:55 Potassium 4.1 MMOL/L (3.6-5.0) 02/10/18 05:55 Chloride 106 mmol/L (98-107) 02/10/18 05:55 Carbon Dioxide 22 mmol/L (22-30) 02/10/18 05:55 Anion Gap 15 (10-20) 02/10/18 05:55 BUN 12 mg/dl (7-17) 02/10/18 05:55 Creatinine 0.8 mg/dl (0.7-1.2) 02/10/18 05:55 Est GFR ( Amer) > 60 02/10/18 05:55 Est GFR (Non-Af Amer) > 60 02/10/18 05:55 POC Glucose (mg/dL) 205 mg/dL (65-110) H 02/11/18 15:44 Random Glucose 138 mg/dL (65-105) H 02/10/18 05:55 Hemoglobin A1c 7.2 % (4.2-6.5) H D 02/09/18 03:45 Calcium 9.3 mg/dL (8.4-10.2) 02/10/18 05:55 Phosphorus 3.4 mg/dl (2.5-4.5) 02/08/18 21:40 Magnesium 1.7 MG/DL (1.6-2.3) 02/08/18 21:40 Total Bilirubin 0.5 mg/dl (0.2-1.3) 02/08/18 21:40 AST 21 U/L (14-36) 02/08/18 21:40 ALT 27 U/L (9-52) 02/08/18 21:40 Alkaline Phosphatase 89 U/L (38-126) 02/08/18 21:40 Total Creatine Kinase 34 U/L (30-135) 02/09/18 03:45 Troponin I < 0.0120 ng/mL (0.00-0.120) 02/09/18 03:45 Total Protein 8.0 G/DL (6.3-8.2) 02/08/18 21:40 Albumin 4.3 g/dL (3.5-5.0) 02/08/18 21:40 Globulin 3.7 gm/dL (2.2-3.9) 02/08/18 21:40 Albumin/Globulin Ratio 1.2 (1.0-2.1) 02/08/18 21:40 TSH 3rd Generation 3.71 mIU/ML (0.46-4.68) 02/09/18 03:45 Venous Blood Potassium 4.2 mmol/L (3.6-5.2) 02/09/18 01:08 Urine Color Yellow (YELLOW) 02/09/18 00:05 Urine Clarity Cloudy (Clear) 02/09/18 00:05 Urine pH 6.0 (5.0-8.0) 02/09/18 00:05 Ur Specific [place] 1.017 (1.003-1.030) 02/09/18 00:05 Urine Protein 30 mg/dL (NEGATIVE) 02/09/18 00:05 Urine Glucose (UA) Neg mg/dL (Normal) 02/09/18 00:05 Urine Ketones Trace mg/dL (NEGATIVE) 02/09/18 00:05 Urine Blood Small (NEGATIVE) 02/09/18 00:05 Urine Nitrate Positive (NEGATIVE) H 02/09/18 00:05 Urine Bilirubin Negative (NEGATIVE) 02/09/18 00:05 Urine Urobilinogen 0.2-1.0 mg/dL (0.2-1.0) 02/09/18 00:05 Ur Leukocyte Esterase Small Bernice/uL (Negative) 02/09/18 00:05 Urine RBC (Auto) 10 /hpf (0-3) H 02/09/18 00:05 Urine Microscopic WBC 17 /hpf (0-5) H 02/09/18 00:05 Ur Squamous Epith Cells 1 /hpf (0-5) 02/09/18 00:05 Urine Bacteria Rare (<OCC) 02/09/18 00:05 Hyaline Casts 0-2 /hpf (0-2) 02/09/18 00:05 Attending/Attestation - Attestation I have personally seen and examined this patient.: Yes I have fully participated in the care of the patient.: Yes I have reviewed all pertinent clinical information, including history, physical exam and plan: Yes Notes (Text): NPH with increase ventricles on CT , Hx of WELLNESS SPECIALIST Shunt - Neurosurgery consulted - Dr Headley will come to program pt's WELLNESS SPECIALIST shunt- he rec to rpt CT of head in 2 wks and ff up with him - neuro consult- Dr Rodriguez - d/c pt to [facility] for physical therapy Acute Pyelonephritis Urine c/s : E coli, Blood c/s : neg - CT of abd and pelvis; neg, no abscess - cont IV Ceftriaxone x 5 more days at [facility]
[2018-02-11 16:16] VITALS: BP 97/60; PULSE 100; RESP 20; TEMP 97.4; O2SAT 95
== END 2018-02-11 17:10 | DRG 689 ==
LOC: H.ER 20:34 → H.ERHOLD 02-09 00:53 → H.MEDSURG1 02-09 01:57
PROVIDERS: ADMIT Internal Medicine; ATTEND Internal Medicine
DX: N10 Acute pyelonephritis (principal); G92 Toxic encephalopathy; G91.2 (Idiopathic) normal pressure hydrocephalus; B96.20 Unspecified Escherichia coli [E. coli] as the cause of diseases classified elsewhere; Z16.39 Resistance to other specified antimicrobial drug; F03.90 Unspecified dementia, unspecified severity, without behavioral disturbance, psychotic disturbance, mood disturbance, and anxiety; G40.909 Epilepsy, unspecified, not intractable, without status epilepticus; E11.9 Type 2 diabetes mellitus without complications; E78.5 Hyperlipidemia, unspecified; I10 Essential (primary) hypertension; N39.498 Other specified urinary incontinence; R26.81 Unsteadiness on feet; Z98.2 Presence of cerebrospinal fluid drainage device; R53.1 Weakness; Z96.653 Presence of artificial knee joint, bilateral; Z86.73 Personal history of transient ischemic attack (TIA), and cerebral infarction without residual deficits; Z85.038 Personal history of other malignant neoplasm of large intestine; Z79.84 Long term (current) use of oral hypoglycemic drugs; Z79.82 Long term (current) use of aspirin

== ENCOUNTER 2018-05-16 19:15 | Inpatient (IN) | payer OTHER ==
[2018-05-16] MEDS ORDERED: Sodium Chloride 0.9% 1,000 ML IV STA (19:36)
[2018-05-16 21:15] LABS: BASO # 0.1 K/uL (0.0-0.2); BASO % 1.1 % (0.0-2.0); EOS # 0.1 K/uL (0.0-0.7); EOS % 0.5 % (0.0-4.0); HEMOGLOBIN 13.6 g/dL (12.0-16.0); LYMPH # 3.6 K/uL (1.0-4.3); LYMPH % 30.9 % (20.0-40.0); MEAN CELL VOLUME 90.8 fl (81.0-99.0); MEAN CORPUSCULAR HEMOGLOBIN 29.6 pg (27.0-31.0); MEAN CORPUSCULAR HGB CONC 32.6 g/dL (33.0-37.0); MEAN PLATELET VOLUME 9.2 fl (7.2-11.7); MONO # 0.9 K/uL (0.0-0.8); MONO % 7.9 % (0.0-10.0); NEUT % 59.6 % (50.0-75.0); NRBC % 0.1 % (0.0-0.0); RBC 4.59 Mil/uL (3.80-5.20); RED CELL DISTRIBUTION WIDTH 13.8 % (11.5-14.5); WHITE BLOOD COUNT 11.7 K/uL (4.8-10.8)
[2018-05-16 21:24] LABS: ALB/GLOB RATIO 1.2 (1.0-2.1); ALBUMIN 4.6 g/dL (3.5-5.0); BLOOD UREA NITROGEN 16 mg/dl (7-17); GFR NON-AFRICAN AMERICAN > 60; SQUAMOUS EPITHIAL < 1 /hpf (0-5); URINE BACTERIA RARE (<OCC); URINE BILIRUBIN NEGATIVE (NEGATIVE); URINE BLOOD NEGATIVE (NEGATIVE); URINE CLARITY CLOUDY (Clear); URINE COLOR AMBER (YELLOW); URINE GLUCOSE (UA) NEG (NEGATIVE); URINE LEUKOCYTE ESTERASE SMALL Leu/uL (Negative); URINE PROTEIN 30 mg/dL (NEGATIVE)
--- NOTE | 2018-05-16 21:32 | ED PDOC ---
HPI: General Adult Time Seen by Provider: 05/16/18 19:18 Chief Complaint (Nursing): Lower Extremity Problem/Injury Chief Complaint (Provider): Weakness History Per: Patient, Family History/Exam Limitations: no limitations Onset/Duration Of Symptoms: Days (2 weeks) Additional Complaint(s): Pt. with weakness all over for 2 weeks worsening. Fell by accident in the bathroom and has pain to the right leg and flank. No head injury per pt. No numbness, tingles, dizziness. No fever, cough. Has foul odor to urine. No chest pain or dyspnea. Past Medical History Reviewed: Nursing Documentation, Vital Signs Vital Signs: Last Vital Signs Temp 98.1 F 05/16/18 19:16 Pulse 76 05/16/18 19:16 Resp 20 05/16/18 19:16 BP 126/77 05/16/18 19:16 Pulse Ox 98 05/16/18 19:16 - Medical History PMH: Arthritis, CVA (s/p CVA), Dementia, Depression, Diabetes, HTN, Hypothyroidism, Seizures (Currently takes medication perscribed from [facility]), TIA Denies: CHF, COPD, HIV, Hypercholesterolemia, Chronic Kidney Disease, Rheumatoid Arthritis - Surgical History Surgical History: Cholecystectomy - Family History Family History: States: Unknown Family Hx - Immunization History Hx Tetanus Toxoid Vaccination: No Hx Influenza Vaccination: Yes Hx Pneumococcal Vaccination: Yes - Home Medications Home Medications: Ambulatory Orders Medication Instructions Recorded Pravastatin Sodium [Pravachol] 40 mg PO HS 04/04/15 Aspirin [Ecotrin] 81 mg PO DAILY #0 tabec 04/07/15 Zolpidem Tartrate [Ambien] 5 mg PO HS PRN #30 tab 04/07/15 Escitalopram [Lexapro] 20 mg PO DAILY 07/31/17 Levothyroxine [Synthroid] 25 mcg PO DAILY 07/31/17 busPIRone [Buspar] 10 mg PO DAILY 07/31/17 metFORMIN [glucOPHAGE] 1,000 mg PO DAILY 07/31/17 Acetaminophen [Tylenol 325mg tab] 650 mg PO Q6 PRN tab 02/10/18 Divalproex [Depakote DR(*BID*)] 250 mg PO BID tcp 02/10/18 Donepezil [Aricept] 5 mg PO DAILY tab 02/10/18 Enoxaparin [Lovenox] 40 mg SC DAILY syr 02/10/18 cefTRIAXone 1 gm [Rocephin 1 gram 1 gm IVPB DAILY 5 Days #5 bag 02/11/18 IVPB] - Allergies Allergies/Adverse Reactions: Allergies Allergy/AdvReac Type Severity Reaction Status Date / Time No Known Allergies Allergy Verified 02/09/18 00:43 Review of Systems ROS Statement: Except As Marked, All Systems Reviewed And Found Negative Constitutional: Positive for: Weakness Gastrointestinal: Positive for: Abdominal Pain Musculoskeletal: Positive for: Back Pain, Leg Pain Neurological: Positive for: Weakness Physical Exam - Reviewed Nursing Documentation Reviewed: Yes Vital Signs Reviewed: Yes - Physical Exam Appears: Positive for: Non-toxic, No Acute Distress Head Exam: Positive for: ATRAUMATIC, NORMAL INSPECTION, NORMOCEPHALIC Skin: Positive for: Normal Color, Warm, DRY Eye Exam: Positive for: EOMI, Normal appearance, PERRL ENT: Positive for: Normal ENT Inspection Neck: Positive for: Normal, Painless ROM Cardiovascular/Chest: Positive for: Regular Rate, Rhythm Respiratory: Positive for: CNT, Normal Breath Sounds Gastrointestinal/Abdominal: Positive for: Soft. Negative for: Tenderness Back: Positive for: R CVA Tenderness, Other (echymosis R flank) Extremity: Positive for: Normal ROM (left leg; upper extremities with no deficits; R leg limited ROM due to pain.), Tenderness (R femur and knee). 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 Negative for: Facial Droop - Laboratory Results Result Diagrams: 05/16/18 20:40 05/16/18 20:40 Lab Results: Total Bilirubin 0.5 mg/dl (0.2-1.3) 05/16/18 20:40 Total Protein 8.3 G/DL (6.3-8.2) H 05/16/18 20:40 Albumin 4.6 g/dL (3.5-5.0) 05/16/18 20:40 Globulin 3.7 gm/dL (2.2-3.9) 05/16/18 20:40 Albumin/Globulin Ratio 1.2 (1.0-2.1) 05/16/18 20:40 Urine Color Maye (YELLOW) 05/16/18 20:40 Urine Clarity Cloudy (Clear) 05/16/18 20:40 Urine pH 6.0 (5.0-8.0) 05/16/18 20:40 Ur Specific [place] 1.021 (1.003-1.030) 05/16/18 20:40 Urine Protein 30 mg/dL (NEGATIVE) 05/16/18 20:40 Urine Glucose (UA) Neg mg/dL (NEGATIVE) 05/16/18 20:40 Urine Ketones Trace mg/dL (NEGATIVE) 05/16/18 20:40 Urine Blood Negative (NEGATIVE) 05/16/18 20:40 Urine Nitrate Negative (NEGATIVE) 05/16/18 20:40 Urine Bilirubin Negative (NEGATIVE) 05/16/18 20:40 Urine Urobilinogen 2.0 mg/dL (0.2-1.0) H 05/16/18 20:40 Ur Leukocyte Esterase Small Bernice/uL (Negative) 05/16/18 20:40 Urine RBC (Auto) 4 /hpf (0-3) H 05/16/18 20:40 Urine Microscopic WBC 68 /hpf (0-5) H 05/16/18 20:40 Ur Squamous Epith Cells < 1 /hpf (0-5) 05/16/18 20:40 Urine Bacteria Rare (<OCC) 05/16/18 20:40 Interpretation Of Abn Labs: 11.7 wbc; urine wbc - ECG O2 Sat by Pulse Oximetry: 98 Pulse Ox Interpretation: Normal - Radiology X-Ray: Interpreted by Me, Viewed By Me X-Ray Interpretation: No Acute Disease - Progress ED Course And Treament: 2156: Stable. Spoke with Dr. Santillan. Will admit tele. AAOx3. Tolerated PO. Disposition - Clinical Impression Clinical Impression: UTI (urinary tract infection), Weakness - Patient ED Disposition Is Patient to be Admitted: Yes Counseled Patient/Family Regarding: Studies Performed, Diagnosis, Need For Followup - Disposition Disposition Time: 19:45 Condition: FAIR - Pt Status Changed To: Hospital Disposition Of: Inpatient - Admit Certification Admit to Inpatient:: After my assessment, the patient will require hospitalization for at least two midnights. This is because of the severity of symptoms shown, intensity of services needed, and/or the medical risk in this patient being treated as an outpatient. - POA Present On Arrival: Falls Or Trauma
[2018-05-16] MEDS ORDERED: cefTRIAXone (Rocephin) 1 gm Inj IV ONE (21:35)
[2018-05-16 21:41] LABS: ALT/SGPT 30 U/L (9-52); AST/SGOT 34 U/L (14-36)
[2018-05-16] MEDS ORDERED: cefTRIAXone (Rocephin) 1 gm Inj ONE (22:02)
[2018-05-17] MEDS: Levothyroxine 25 MCG TAB PO SCH (05:39)
--- NOTE | 2018-05-17 08:05 | CT ---
Date of service: 05/16/2018 PROCEDURE: CT HEAD WITHOUT CONTRAST. HISTORY: headache COMPARISON: None available. TECHNIQUE: Axial computed tomography images were obtained through the head/brain without intravenous contrast. Radiation dose: Total exam DLP = 1828.66 mGy-cm. This CT exam was performed using one or more of the following dose reduction techniques: Automated exposure control, adjustment of the mA and/or kV according to patient size, and/or use of iterative reconstruction technique. FINDINGS: HEMORRHAGE: No intracranial hemorrhage. BRAIN: No mass effect or edema. Chronic periventricular white matter ischemic disease. No acute hemorrhage. Right frontal shunt catheter terminates in the left lateral ventricle. VENTRICLES: Unremarkable. No hydrocephalus. CALVARIUM: Unremarkable. PARANASAL SINUSES: Unremarkable as visualized. No significant inflammatory changes. MASTOID AIR CELLS: Unremarkable as visualized. No inflammatory changes. OTHER FINDINGS: None. IMPRESSION: Chronic periventricular white matter ischemic disease. No acute hemorrhage. Right frontal shunt catheter terminates in the left lateral ventricle.
--- NOTE | 2018-05-17 08:09 | CT ---
Date of service: 05/16/2018 PROCEDURE: CT Abdomen and Pelvis without intravenous contrast HISTORY: trauma righ flank COMPARISON: None. TECHNIQUE: Technique. Contrast dose: Radiation dose: Total exam DLP = 548.82 mGy-cm. This CT exam was performed using one or more of the following dose reduction techniques: Automated exposure control, adjustment of the mA and/or kV according to patient size, and/or use of iterative reconstruction technique. FINDINGS: LOWER THORAX: Left basilar linear fibrosis. LIVER: Unremarkable. No gross lesion or ductal dilatation. GALLBLADDER AND BILE DUCTS: Cholecystectomy. PANCREAS: Unremarkable. No gross lesion or ductal dilatation. SPLEEN: Unremarkable. ADRENALS: Unremarkable. No mass. KIDNEYS AND URETERS: Unremarkable. No hydronephrosis. No solid mass. VASCULATURE: Unremarkable. No aortic aneurysm. No aortic atherosclerotic calcification or mural plaque present. BOWEL: Unremarkable. No obstruction. No gross mural thickening. APPENDIX: Unremarkable. Normal appendix. PERITONEUM: Unremarkable. No free fluid. No free air. LYMPH NODES: Unremarkable. No enlarged lymph nodes. BLADDER: Unremarkable. REPRODUCTIVE: Status post hysterectomy. BONES: No acute fracture. OTHER FINDINGS: Left-sided LEADER TIER shunt. IMPRESSION: Unremarkable non contrast enhanced CT of the abdomen and pelvis.
--- NOTE | 2018-05-17 08:31 | RAD ---
Date of service: 05/16/2018 HISTORY: pain COMPARISON: None available. FINDINGS: BONES: Status post knee arthroplasty. JOINTS: Normal. No osteoarthritis. SOFT TISSUE: Normal. OTHER FINDINGS: None . IMPRESSION: Status post knee arthroplasty.
--- NOTE | 2018-05-17 08:34 | RAD ---
Date of service: 05/16/2018 HISTORY: weakness COMPARISON: No prior. FINDINGS: LUNGS: No active pulmonary disease. PLEURA: No significant pleural effusion identified, no pneumothorax apparent. CARDIOVASCULAR: No aortic atherosclerotic calcification present. Normal cardiac size. No pulmonary vascular congestion. OSSEOUS STRUCTURES: No significant abnormalities. VISUALIZED UPPER ABDOMEN: Normal. 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 IMPRESSION: No active disease.
--- NOTE | 2018-05-17 08:35 | RAD ---
Date of service: 05/16/2018 HISTORY: pain COMPARISON: None available. FINDINGS: BONES: Normal. No fracture. JOINTS: Normal. No osteoarthritis. SOFT TISSUE: Normal. OTHER FINDINGS: Status post total knee arthroplasty.. IMPRESSION: Normal Bone Xray.
[2018-05-17] MEDS ORDERED: Enoxaparin 60 mg Syringe SC SCH (09:00)
[2018-05-17] MEDS: Enoxaparin 40 mg Syringe SC SCH (09:37)
[2018-05-17] MEDS: Pravastatin Sodium 40 MG TAB PO SCH (09:38)
[2018-05-17] MEDS: Multivitamin With Minerals Tab PO SCH (09:38)
--- NOTE | 2018-05-17 10:22 | HP ---
CHIEF COMPLAINT: Generalized weakness. HISTORY OF PRESENT ILLNESS: This is a 77-year-old female known case of diabetes, hypertension, hypothyroidism, dementia, depression, arthritis, status post CVA, is on some medications prescribed in [facility], who had generalized weakness for two weeks, which did not get better and the patient had episodes of fall, so the patient was brought to emergency room and was admitted for further management. The patient is a poor historian. REVIEW OF SYSTEMS: Negative for headache, dizziness, syncope, loss of consciousness, chest pain, shortness of breath, nausea, vomiting, diarrhea, constipation, any new joint or extremity pain, but review of systems is positive for generalized weakness and history of fall. PAST MEDICAL HISTORY: Significant for hypertension, diabetes, hypothyroidism, status post CVA, depression, dementia, seizures. PAST SURGICAL HISTORY: Remarkable for gallbladder surgery. PERSONAL HISTORY: The patient is currently nonsmoker. Nondrinker. No substance abuse. MEDICATIONS: The patient is on Pravachol, Ecotrin, Ambien, Lexapro, Synthroid, BuSpar, Glucophage, Tylenol, Depakote, Aricept, Rocephin, and Lovenox. ALLERGIES: THE PATIENT IS NOT ALLERGIC TO ANY MEDICATIONS. FAMILY HISTORY: Noncontributory. PHYSICAL EXAMINATION: GENERAL: Well-built, well-nourished, overweight 77-year-old female in no acute distress. VITAL SIGNS: Temperature 97.6, pulse 84, respirations 18, blood pressure 124/81. HEENT: Pupils reacting to light. No JVD. No thyromegaly. No lymphadenopathy. No nystagmus. Normocephalic, atraumatic skull. HEART: S1 and S2, normal and regular. No significant murmur, gallop, or rub is heard. LUNGS: Shows good bilateral air exchange. No rales or rhonchi. ABDOMEN: Soft and nontender. No organomegaly. No fluid. Bowel sounds are present and normal. EXTREMITIES: No edema. No calf swelling. No tenderness. No acute ischemia. CENTRAL NERVOUS SYSTEM: Essentially unchanged. There is no sign of any acute gross focal motor or sensory or neurological deficits. DIAGNOSTIC DATA: Available diagnostic data reviewed. Telemetry monitoring does not reveal significant arrhythmias. WBC 11.7, hemoglobin 13.6, hematocrit 41.7, platelets 300. Sodium 144, potassium 4.6, chloride 102, bicarb 24, BUN 16, creatinine 0.6. SMA-12 was unremarkable. Troponin one set was negative. Urinalysis shows leukocytes positive and rare bacteria. ADMITTING IMPRESSION: Urinary tract infection, generalized weakness, hypertension, type 2 diabetes with hyperglycemia, history of cerebrovascular accident, arthritis, dementia, hypothyroidism, seizure disorder. PLAN: As ordered. Case and plan discussed with the patient. Kumar Santillan MD
[2018-05-17] MEDS: Insulin Regular 100 units/ml SC SCH ×3 (13:05→22:19)
[2018-05-18] MEDS: Levothyroxine 25 MCG TAB PO SCH (06:15)
[2018-05-18] MEDS: Insulin Regular 100 units/ml SC SCH ×4 (08:07→21:22)
[2018-05-18] MEDS: Enoxaparin 40 mg Syringe SC SCH (09:04)
[2018-05-18] MEDS: Pravastatin Sodium 40 MG TAB PO SCH (09:05)
[2018-05-18] MEDS: Multivitamin With Minerals Tab PO SCH (09:05)
--- NOTE | 2018-05-18 09:55 | PN ---
DATE: 05/18/2018 SUBJECTIVE: The patient seen and examined. Interim events noted. Consult noted and appreciated. The patient remains in progressive care unit on telemetry monitoring. chief complaints of generalized weakness. Denies any chest pain or shortness of breath. PHYSICAL EXAMINATION: GENERAL: The patient is in no acute distress. VITAL SIGNS: Stable. HEART: S1 and S2, normal, regular. LUNGS: Good bilateral air exchange. ABDOMEN: Soft, nontender. EXTREMITIES: No edema. No calf swelling. No tenderness. No acute ischemia. CENTRAL NERVOUS SYSTEM: Essentially unchanged. DIAGNOSTIC DATA: Available diagnostic data reviewed. ASSESSMENT AND PLAN: Overall, the patient's medical condition is stable. Plan as ordered. Kumar Santillan MD
[2018-05-19] MEDS: Levothyroxine 25 MCG TAB PO SCH (06:17)
[2018-05-19 06:45] LABS: BASO # 0.1 K/uL (0.0-0.2); BASO % 0.6 % (0.0-2.0); EOS # 0.2 K/uL (0.0-0.7); EOS % 1.9 % (0.0-4.0); HEMOGLOBIN 12.1 g/dL (12.0-16.0); LYMPH # 3.3 K/uL (1.0-4.3); LYMPH % 28.9 % (20.0-40.0); MEAN CELL VOLUME 89.6 fl (81.0-99.0); MEAN CORPUSCULAR HEMOGLOBIN 29.2 pg (27.0-31.0); MEAN CORPUSCULAR HGB CONC 32.6 g/dL (33.0-37.0); MEAN PLATELET VOLUME 8.4 fl (7.2-11.7); MONO % 8.5 % (0.0-10.0); NEUT # 6.9 K/uL (1.8-7.0); NEUT % 60.1 % (50.0-75.0); NRBC % 0.2 % (0.0-0.0); RBC 4.15 Mil/uL (3.80-5.20); RED CELL DISTRIBUTION WIDTH 13.9 % (11.5-14.5); WHITE BLOOD COUNT 11.5 K/uL (4.8-10.8)
[2018-05-19 06:57] LABS: BLOOD UREA NITROGEN 16 mg/dl (7-17); CALCIUM 10.1 mg/dL (8.4-10.2); GFR NON-AFRICAN AMERICAN > 60
--- NOTE | 2018-05-19 07:03 | CP.PCM.PN ---
<Beau Galvan - Last Filed: 05/19/18 09:44> Subjective - Date & Time of Evaluation Date of Evaluation: 05/19/18 Time of Evaluation: 07:02 - Subjective Subjective: Patient seen and examined this morning with Dr. Santillan. NAD, Comfortable on bed, drinking fluids, reports generalized body aches/pain and urinary incontinence, denies any chest pain, SOB, abdominal pain. No acute event overnight. Objective - Vital Signs/Intake and Output Vital Signs (last 24 hours): Temp Pulse Resp BP Pulse Ox 99.2 F 85 20 101/55 L 93 L 05/19/18 04:46 05/19/18 04:46 05/19/18 04:46 05/19/18 04:46 05/19/18 04:46 - Medications Medications: Current Medications Aspirin (Aspirin Chewable) 81 mg PO DAILY [facility] Last Admin: 05/18/18 09:03 Dose: 81 mg Buspirone HCl (Buspar) 5 mg PO BID [facility] Last Admin: 05/18/18 17:36 Dose: 5 mg Enoxaparin Sodium (Lovenox) 40 mg SC DAILY [facility]; Protocol Last Admin: 05/18/18 09:04 Dose: 40 mg Escitalopram Oxalate (Lexapro) 20 mg PO DAILY [facility] Last Admin: 05/18/18 09:04 Dose: 20 mg Ceftriaxone Sodium 1 gm/ (Sodium Chloride) 100 mls @ 100 mls/hr IVPB DAILY [facility]; Protocol Last Admin: 05/18/18 12:22 Dose: 100 mls/hr Ibuprofen (Motrin Tab) 600 mg PO Q8 PRN PRN Reason: Pain, moderate (4-7) Last Admin: 05/18/18 12:20 Dose: 600 mg Insulin Human Regular (Humulin R) 0 units SC ACHS [facility]; Protocol Last Admin: 05/18/18 21:22 Dose: Not Given Levothyroxine Sodium (Synthroid) 25 mcg PO DAILY@0630 [facility] Last Admin: 05/19/18 06:17 Dose: 25 mcg Metformin HCl (Glucophage) 1,000 mg PO BID [facility] Last Admin: 05/18/18 17:37 Dose: 1,000 mg Multivitamins/Minerals (Therapeutic-M Tab) 1 tab PO DAILY [facility] Last Admin: 05/18/18 09:05 Dose: 1 tab Pravastatin Sodium (Pravachol) 40 mg PO DAILY [facility] Last Admin: 05/18/18 09:05 Dose: 40 mg Zolpidem Tartrate (Ambien) 5 mg PO HS PRN PRN Reason: Insomnia Last Admin: 05/17/18 01:32 Dose: 5 mg - Labs Labs: 05/19/18 06:30 05/19/18 06:30 - Constitutional Appears: No Acute Distress - Head Exam Head Exam: NORMAL INSPECTION - Eye Exam Eye Exam: Normal appearance - ENT Exam ENT Exam: Mucous Membranes Moist - Neck Exam Neck Exam: Normal Inspection - Respiratory Exam Respiratory Exam: Clear to Ausculation Bilateral, NORMAL BREATHING PATTERN - Cardiovascular Exam Cardiovascular Exam: REGULAR RHYTHM, +S1, +S2 - GI/Abdominal Exam GI & Abdominal Exam: Soft, Normal Bowel Sounds - Extremities Exam Extremities Exam: Normal Inspection - Neurological Exam Neurological Exam: Alert, Awake, Oriented x3 - Psychiatric Exam Psychiatric exam: Normal Affect - Skin Skin Exam: Normal Color Assessment and Plan - Assessment and Plan (Free Text) Assessment: A/P: 77 year old female with pmhx of hydrocephalus s/p TRAVEL 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 Worsening Generalized weakness, s/p fall -CT abdo/Pelvis: No acute findings -Ct head: reviewed, no acute changed, see official report -CXR: No acute findings -Femur Xray: Normal -R knee Xray: No Fcx -Consult Neurology, Dr. redmond, F/u recommendations -F/u B12/TSH/Folate/Prolactin -C/w PT/OT E.coli UTI with chronic urinary incontinence -Afebrile -C/w Ceftriaxone 1gm daily, day 2 -Consult Urology, follow up recommendations Hydrocephalus s/p TRAVEL TRAILER COMPONENTS ASSEMBLER shunt in place -CT of head w/o contrast reviewed -F/u Neuro recommendations Dementia -continue Aricept 5 mg po Diabetes mellitus II -c/w Metformin 1000 mg po daily Hyperlipidemia -c/w pravastatin 40 mg po hs Hypothyroid - C/w Synthroid 25 mcg PO daily Seizure disorder - Started on depakoate 250 mg BID in last admission but patient never got r efills since dec 2017 DVT prophylaxis -Lovenox 40 mg sc Diet -Heart healthy diet Code status -Full code <Kumar Santillan K - Last Filed: 05/21/18 11:39> Objective - Vital Signs/Intake and Output Vital Signs (last 24 hours): Temp Pulse Resp BP Pulse Ox 97.5 F L 78 18 110/68 96 05/20/18 12:00 05/20/18 12:00 05/20/18 12:00 05/20/18 12:00 05/20/18 12:00 - Labs Labs: 05/19/18 06:30 05/19/18 06:30 Assessment and Plan - Assessment and Plan (Free Text) Assessment: Patient was personally seen and examined by me in rounds with residents. Available labs and diagnostic data reviewed. Case, Patient's condition and management plan discussed with residents in rounds. Agree with resident's progress note. Plan: As ordered.
[2018-05-19] MEDS: Enoxaparin 40 mg Syringe SC SCH (08:51)
[2018-05-19] MEDS: Insulin Regular 100 units/ml SC SCH ×4 (08:51→21:44)
[2018-05-19] MEDS: Multivitamin With Minerals Tab PO SCH (08:52)
[2018-05-19] MEDS: Pravastatin Sodium 40 MG TAB PO SCH (10:59)
[2018-05-19 13:00] LABS: FOLATE > 20.0 ng/mL
--- NOTE | 2018-05-19 17:25 | CP.PCM.CON ---
History of Present Illness - History of Present Illness History of Present Illness: Neurology Consultation Note: Consult requested by Dr. Santillan Mrs. Galan is a 77-year-old woman with a past medical history of HTN, DM, HLD, NPH with CIGAR BANDER HAND shunt who presented to the hospital with a 2 week period of worsening weakness and gait difficulty resulting in falls. CT head was done and showed hydrocephalus with periventricular edema and the shunt terminating in the right lateral ventricle. Neurology was consulted to assist with the management and care. When I saw the patient, she was complaining of pain in her legs and wa s confused. She denied headache, nausea, vomiting at the moment, but said she did have that earlier. Review of Systems - Review of Systems Systems not reviewed;Unavailable: Altered Mental Status Past Patient History - Infectious Disease Hx of Infectious Diseases: None - Past Medical History & Family History Past Medical History?: Yes - Past Social History Smoking Status: Never Smoked - CARDIAC Hx Congestive Heart Failure: No Hx Hypercholesterolemia: Yes Hx Hypertension: No - PULMONARY Hx Respiratory Disorders: No Hx Chronic Obstructive Pulmonary Disease (COPD): No - NEUROLOGICAL HX Cerebrovascular Accident: Yes Hx Dementia: Yes Hx Migraine: Yes Hx Seizures: Yes (Currently takes medication perscribed from [facility]) Hx Transient Ischemic Attacks (TIA): Yes - HEENT Hx HEENT Problems: No - RENAL Hx Chronic Kidney Disease: No - ENDOCRINE/METABOLIC Hx Hypothyroidism: Yes - HEMATOLOGICAL/ONCOLOGICAL Hx AIDS: No Hx Blood Transfusions: No Hx Chemotherapy: Yes (secondary to Colon Sx) Hx Human Immunodeficiency Virus (HIV): No - INTEGUMENTARY Hx Dermatological Problems: Yes Other/Comment: skin ca (nose) with sx - MUSCULOSKELETAL/RHEUMATOLOGICAL Hx Arthritis: Yes Hx Falls: Yes Hx Rheumatoid Arthritis: No - GASTROINTESTINAL Hx Gastrointestinal Disorders: Yes Hx Bowel Surgery: Yes (Colectomy secondary to colon cancer) - GENITOURINARY/GYNECOLOGICAL Hx Genitourinary Disorders: Yes Hx Incontinence: Yes - PSYCHIATRIC Hx Depression: Yes Hx Substance Use: No - SURGICAL HISTORY Hx Appendectomy: Yes Hx Cholecystectomy: Yes Hx Joint Replacement: Yes (right knee) Other/Comment: Shunt in the brain - ANESTHESIA Hx Anesthesia: Yes Hx Anesthesia Reactions: No Hx Malignant Hyperthermia: No Meds Allergies/Adverse Reactions: Allergies Allergy/AdvReac Type Severity Reaction Status Date / Time No Known Allergies Allergy Verified 02/09/18 00:43 - Medications Medications: Current Medications Aspirin (Aspirin Chewable) 81 mg PO DAILY [facility] Last Admin: 05/19/18 08:51 Dose: 81 mg Buspirone HCl (Buspar) 5 mg PO BID [facility] Last Admin: 05/19/18 08:51 Dose: 5 mg Donepezil HCl (Aricept) 5 mg PO HS [facility] Enoxaparin Sodium (Lovenox) 40 mg SC DAILY [facility]; Protocol Last Admin: 05/19/18 08:51 Dose: 40 mg Escitalopram Oxalate (Lexapro) 20 mg PO DAILY [facility] Last Admin: 05/19/18 08:52 Dose: 20 mg Ceftriaxone Sodium 1 gm/ (Sodium Chloride) 100 mls @ 100 mls/hr IVPB DAILY [facility]; Protocol Last Admin: 05/19/18 08:53 Dose: 100 mls/hr Ibuprofen (Motrin Tab) 600 mg PO Q8 PRN PRN Reason: Pain, moderate (4-7) Last Admin: 05/18/18 12:20 Dose: 600 mg Insulin Human Regular (Humulin R) 0 units SC [facility]; Protocol Last Admin: 05/19/18 17:17 Dose: Not Given Levothyroxine Sodium (Synthroid) 25 mcg PO DAILY@0630 [facility] Last Admin: 05/19/18 06:17 Dose: 25 mcg Meclizine HCl (Antivert) 12.5 mg PO BID PRN PRN Reason: Dizziness Metformin HCl (Glucophage) 1,000 mg PO BID [facility] Last Admin: 05/19/18 17:17 Dose: 1,000 mg Multivitamins/Minerals (Therapeutic-M Tab) 1 tab PO DAILY [facility] Last Admin: 05/19/18 08:52 Dose: 1 tab Pravastatin Sodium (Pravachol) 40 mg PO DAILY [facility] Last Admin: 05/19/18 10:59 Dose: 40 mg Tramadol HCl (Ultram) 50 mg PO Q6 PRN PRN Reason: Pain, severe (8-10) Zolpidem Tartrate (Ambien) 5 mg PO HS PRN PRN Reason: Insomnia Last Admin: 05/17/18 01:32 Dose: 5 mg Physical Exam - Constitutional Appears: Well - Head Exam Head Exam: ATRAUMATIC, NORMAL INSPECTION, NORMOCEPHALIC - Eye Exam Eye Exam: EOMI, Normal appearance, PERRL Pupil Exam: NORMAL ACCOMODATION, PERRL - ENT Exam ENT Exam: Mucous Membranes Moist, Normal Exam - Neck Exam Neck exam: Positive for: Normal Inspection - Respiratory Exam Respiratory Exam: Clear to Auscultation Bilateral, NORMAL BREATHING PATTERN - Cardiovascular Exam Cardiovascular Exam: REGULAR RHYTHM, +S1, +S2 - GI/Abdominal Exam GI & Abdominal Exam: Normal Bowel Sounds, Soft. absent: Tenderness - Extremities Exam Extremities exam: Positive for: pedal edema, tenderness - Back Exam Back exam: NORMAL INSPECTION - Neurological Exam Neurological exam: Abnormal Gait, Alert, CN II-XII Intact, Oriented x3, Reflexes Normal Additional comments: Confused about date and time but oriented to place and person. Recall and attention are impaired. Bilateral lower extremity pain and weakness to touch with pitting edema on the left. - Psychiatric Exam Psychiatric exam: Normal Affect, Normal Mood - Skin Skin Exam: Dry, Intact, Normal Color, Warm Results - Vital Signs Recent Vital Signs: Last Vital Signs Temp 98 F 05/19/18 16:22 Pulse 71 05/19/18 16:22 Resp 20 05/19/18 16:22 BP 105/64 05/19/18 16:22 Pulse Ox 97 05/19/18 16:22 - Labs Result Diagrams: 05/19/18 06:30 05/19/18 06:30 Labs: Laboratory Results - last 24 hr 05/18/18 05/18/18 05/19/18 10:21 21:13 05:09 WBC RBC Hgb Hct MCV MCH MCHC RDW Plt Count MPV Neut % (Auto) Lymph % (Auto) [place] % (Auto) Eos % (Auto) Baso % (Auto) Neut # (Auto) Lymph # (Auto) [place] # (Auto) Eos # (Auto) Baso # (Auto) Sodium Potassium Chloride Carbon Dioxide Anion Gap BUN Creatinine Est GFR ( Amer) Est GFR (Non-Af Amer) POC Glucose (mg/dL) 252 H 177 H 143 H Random Glucose Calcium Vitamin B12 Folate TSH 3rd Generation Prolactin 05/19/18 05/19/18 05/19/18 06:30 06:30 06:30 WBC 11.5 H RBC 4.15 Hgb 12.1 Hct 37.2 MCV 89.6 MCH 29.2 MCHC 32.6 L RDW 13.9 Plt Count 254 MPV 8.4 Neut % (Auto) 60.1 Lymph % (Auto) 28.9 [place] % (Auto) 8.5 Eos % (Auto) 1.9 Baso % (Auto) 0.6 Neut # (Auto) 6.9 Lymph # (Auto) 3.3 [place] # (Auto) 1.0 H Eos # (Auto) 0.2 Baso # (Auto) 0.1 Sodium 138 Potassium 4.3 Chloride 105 Carbon Dioxide 23 Anion Gap 14 BUN 16 Creatinine 0.9 Est GFR ( Amer) > 60 Est GFR (Non-Af Amer) > 60 POC Glucose (mg/dL) Random Glucose 134 H Calcium 10.1 Vitamin B12 260 Folate > 20.0 TSH 3rd Generation 2.93 Prolactin 05/19/18 05/19/18 05/19/18 10:00 10:38 16:06 WBC RBC Hgb Hct MCV MCH MCHC RDW Plt Count MPV Neut % (Auto) Lymph % (Auto) [place] % (Auto) Eos % (Auto) Baso % (Auto) Neut # (Auto) Lymph # (Auto) [place] # (Auto) Eos # (Auto) Baso # (Auto) Sodium Potassium Chloride Carbon Dioxide Anion Gap BUN Creatinine Est GFR ( Amer) Est GFR (Non-Af Amer) POC Glucose (mg/dL) 159 H 142 H Random Glucose Calcium Vitamin B12 Folate TSH 3rd Generation Prolactin 18.3 Assessment & Plan (1) Weakness Assessment and Plan: This appears to be exacerbated by the patient's current infection. The patient has dementia and weakness at baseline. I recommend neurosurgical consultation to evaluate for any potential CIGAR BANDER HAND shunt failure. I recommend treating the potential underlying cause per the primary team. PT/OT is also recommended. Evaluation with venous Dopplers of lower extremities is recommended. Thank you for this consultation. Status: Acute (2) Dementia Assessment and Plan: Continue Aricept and avoid benzodiazepines. Status: Acute
[2018-05-20 00:34] VITALS: RESP 18
[2018-05-20] MEDS: Insulin Regular 100 units/ml SC SCH ×3 (06:53→17:18)
[2018-05-20] MEDS: Levothyroxine 25 MCG TAB PO SCH (06:53)
[2018-05-20] MEDS: Enoxaparin 40 mg Syringe SC SCH (08:46)
[2018-05-20] MEDS: Multivitamin With Minerals Tab PO SCH (08:46)
[2018-05-20] MEDS: Pravastatin Sodium 40 MG TAB PO SCH (09:08)
--- NOTE | 2018-05-20 11:01 | CP.PCM.PN ---
<Beau Galvan - Last Filed: 05/20/18 11:07> Subjective - Date & Time of Evaluation Date of Evaluation: 05/20/18 Time of Evaluation: 07:30 - Subjective Subjective: Patient seen and examined this morning at bedside with Dr. Santillan. NAD, No acute event overnight, c/o weakness and generalized body aches. denies any chest pain, SOB, abdominal pain. Objective - Vital Signs/Intake and Output Vital Signs (last 24 hours): Temp Pulse Resp BP Pulse Ox 97.9 F 65 18 114/70 97 05/20/18 04:54 05/20/18 04:54 05/20/18 04:54 05/20/18 04:54 05/20/18 04:54 - Medications Medications: Current Medications Aspirin (Aspirin Chewable) 81 mg PO DAILY [facility] Last Admin: 05/20/18 08:48 Dose: 81 mg Buspirone HCl (Buspar) 5 mg PO BID [facility] Last Admin: 05/19/18 08:51 Dose: 5 mg Cyanocobalamin (Vitamin B12 1000 Mcg/Ml Inj) 1,000 mcg IM DAILY [facility] Stop: 05/21/18 09:01 Last Admin: 05/20/18 08:47 Dose: 1,000 mcg Donepezil HCl (Aricept) 5 mg PO HS [facility] Last Admin: 05/19/18 21:42 Dose: 5 mg Enoxaparin Sodium (Lovenox) 40 mg SC DAILY [facility]; Protocol Last Admin: 05/20/18 08:46 Dose: 40 mg Escitalopram Oxalate (Lexapro) 20 mg PO DAILY [facility] Last Admin: 05/20/18 08:49 Dose: 20 mg Ceftriaxone Sodium 1 gm/ (Sodium Chloride) 100 mls @ 100 mls/hr IVPB DAILY [facility]; Protocol Last Admin: 05/20/18 08:45 Dose: 100 mls/hr Ibuprofen (Motrin Tab) 600 mg PO Q8 PRN PRN Reason: Pain, moderate (4-7) Last Admin: 05/18/18 12:20 Dose: 600 mg Insulin Human Regular (Humulin R) 0 units SC [facility]; Protocol Last Admin: 05/20/18 06:53 Dose: 2 unit Levothyroxine Sodium (Synthroid) 25 mcg PO DAILY@0630 [facility] Last Admin: 05/20/18 06:53 Dose: 25 mcg Meclizine HCl (Antivert) 12.5 mg PO BID PRN PRN Reason: Dizziness Metformin HCl (Glucophage) 1,000 mg PO BID [facility] Last Admin: 05/20/18 08:47 Dose: 1,000 mg Multivitamins/Minerals (Therapeutic-M Tab) 1 tab PO DAILY [facility] Last Admin: 05/20/18 08:46 Dose: 1 tab Pravastatin Sodium (Pravachol) 40 mg PO DAILY [facility] Last Admin: 05/20/18 09:08 Dose: 40 mg Tramadol HCl (Ultram) 50 mg PO Q6 PRN PRN Reason: Pain, severe (8-10) Zolpidem Tartrate (Ambien) 5 mg PO HS PRN PRN Reason: Insomnia Last Admin: 05/17/18 01:32 Dose: 5 mg - Labs Labs: 05/19/18 06:30 05/19/18 06:30 - Constitutional Appears: No Acute Distress - Head Exam Head Exam: NORMAL INSPECTION - Eye Exam Eye Exam: Normal appearance, PERRL Pupil Exam: NORMAL ACCOMODATION - ENT Exam ENT Exam: Mucous Membranes Moist - Neck Exam Neck Exam: Normal Inspection - Respiratory Exam Respiratory Exam: Clear to Ausculation Bilateral, NORMAL BREATHING PATTERN. absent: Accessory Muscle Use, Chest Wall Tenderness - Cardiovascular Exam Cardiovascular Exam: REGULAR RHYTHM, +S1, +S2 - GI/Abdominal Exam GI & Abdominal Exam: Soft, Normal Bowel Sounds. absent: Tenderness - Extremities Exam Extremities Exam: Tenderness - Back Exam Back Exam: NORMAL INSPECTION - Neurological Exam Neurological Exam: Alert, Awake, Oriented x3 - Psychiatric Exam Psychiatric exam: Normal Affect - Skin Skin Exam: Normal Color Assessment and Plan - Assessment and Plan (Free Text) Assessment: A/P: 77 year old female with pmhx of hydrocephalus s/p PENSIONHOLDER INFORMATION CLERK shut in place, seizures disorder dementia, DMII, HLD and urinary incontinence admitted to [facility] for eval and treatment of generalized weakness and a Fall. Worsening Generalized weakness, s/p fall -Ct head: reviewed, no acute changed, see official report -Consult Neurology, Dr. redmond, recommendations appreciated -Consult Neurosurgery, f/u recommendations -Neurosurgical consultation to evaluate for any potential PENSIONHOLDER INFORMATION CLERK shunt failure -Lower extremities pain/weakness: F/u Dopper u/s -Low Vitamin B12, c/w B12 -C/w PT/OT E.coli UTI with chronic urinary incontinence -Afebrile -C/w Ceftriaxone 1gm daily, day 2 -Consult Urology, follow up recommendations Hydrocephalus s/p PENSIONHOLDER INFORMATION CLERK shunt in place -CT of head w/o contrast reviewed -Consult Neurology, Dr. redmond, recommendations appreciated -Consult Neurosurgery, f/u recommendations -Neurosurgical consultation to evaluate for any potential PENSIONHOLDER INFORMATION CLERK shunt failure -Hold Buspar Dementia -continue Aricept 5 mg po Diabetes mellitus II -c/w Metformin 1000 mg po daily Hyperlipidemia -c/w pravastatin 40 mg po hs Hypothyroid - C/w Synthroid 25 mcg PO daily Seizure disorder - Started on depakoate 250 mg BID in last admission but patient never got refills since dec 2017 DVT prophylaxis -Lovenox 40 mg sc Diet -Heart healthy diet Code status -Full code <SantillanKumar K - Last Filed: 05/21/18 11:38> Objective - Vital Signs/Intake and Output Vital Signs (last 24 hours): Temp Pulse Resp BP Pulse Ox 97.5 F L 78 18 110/68 96 05/20/18 12:00 05/20/18 12:00 05/20/18 12:00 05/20/18 12:00 05/20/18 12:00 - Labs Labs: 05/19/18 06:30 05/19/18 06:30 Assessment and Plan - Assessment and Plan (Free Text) Assessment: Patient was personally seen and examined by me in rounds with residents. Available labs and diagnostic data reviewed. Case, Patient's condition and management plan discussed with residents in rounds. Agree with resident's progress note. Plan: As ordered.
--- NOTE | 2018-05-20 11:38 | US ---
Date of service: 05/20/2018 PROCEDURE: Bilateral lower extremity venous duplex Doppler. HISTORY: Pain/Tender COMPARISON: None available. TECHNIQUE: Bilateral common femoral, superficial femoral, popliteal and posterior tibial veins were evaluated. Flow was assessed with color Doppler, compressibility, assessment of phasic flow and augmentation response. FINDINGS: COMMON FEMORAL VEIN: Right CFV: Unremarkable. Left CFV: Unremarkable. SUPERFICIAL FEMORAL VEIN: Right SFV: Unremarkable. Left SFV: Unremarkable. POPLITEAL VEIN: Right Popliteal: Unremarkable. Left Popliteal: Unremarkable. POSTERIOR TIBIAL VEIN: Right PTV: Unremarkable. Left PTV: Unremarkable. OTHER FINDINGS: None. IMPRESSION: No evidence of deep venous thrombosis.
[2018-05-20 12:17] VITALS: BP 110/68; PULSE 78; TEMP 97.5; O2SAT 96
--- NOTE | 2018-05-20 12:57 | CP.PCM.PCO ---
Assessment & Plan - Assessment and Plan (Free Text) Assessment: pt. seen and examined; at bedside feels well , denies sob, fever, chills Spoke with who interrogated GENERAL FARMWORKER shunt in 02/24 CT head neg for hydrocephalus as per , pt. cleared for d/c to [facility] but recommended f/u outpatient d/w who agrees pt. for d/c to [facility] today under , sw aware cont. Rocephin 1gm iv daily x 5 more days - Functional Status Prior to Admission: 02/12/18 Current Status: adm w/ UTI/ weakness status Inpatient Impairment Code: ,
--- NOTE | 2018-05-20 13:58 | CP.PCM.PN ---
Subjective - Date & Time of Evaluation Date of Evaluation: 05/20/18 Time of Evaluation: 13:57 - Subjective Subjective: new ct shows NO hydrocephalus thus there is no reason to believe that the shunt is not working Objective - Vital Signs/Intake and Output Vital Signs (last 24 hours): Temp Pulse Resp BP Pulse Ox 97.5 F L 78 18 110/68 96 05/20/18 12:00 05/20/18 12:00 05/20/18 12:00 05/20/18 12:00 05/20/18 12:00 - Medications Medications: Current Medications Aspirin (Aspirin Chewable) 81 mg PO DAILY [facility] Last Admin: 05/20/18 08:48 Dose: 81 mg Buspirone HCl (Buspar) 5 mg PO BID [facility] Last Admin: 05/19/18 08:51 Dose: 5 mg Cyanocobalamin (Vitamin B12 1000 Mcg/Ml Inj) 1,000 mcg IM DAILY [facility] Stop: 05/21/18 09:01 Last Admin: 05/20/18 08:47 Dose: 1,000 mcg Donepezil HCl (Aricept) 5 mg PO HS [facility] Last Admin: 05/19/18 21:42 Dose: 5 mg Enoxaparin Sodium (Lovenox) 40 mg SC DAILY [facility]; Protocol Last Admin: 05/20/18 08:46 Dose: 40 mg Escitalopram Oxalate (Lexapro) 20 mg PO DAILY [facility] Last Admin: 05/20/18 08:49 Dose: 20 mg Ceftriaxone Sodium 1 gm/ (Sodium Chloride) 100 mls @ 100 mls/hr IVPB DAILY [facility]; Protocol Last Admin: 05/20/18 08:45 Dose: 100 mls/hr Ibuprofen (Motrin Tab) 600 mg PO Q8 PRN PRN Reason: Pain, moderate (4-7) Last Admin: 05/18/18 12:20 Dose: 600 mg Insulin Human Regular (Humulin R) 0 units SC ACHS [facility]; Protocol Last Admin: 05/20/18 12:38 Dose: 3 unit Levothyroxine Sodium (Synthroid) 25 mcg PO DAILY@0630 [facility] Last Admin: 05/20/18 06:53 Dose: 25 mcg Meclizine HCl (Antivert) 12.5 mg PO BID PRN PRN Reason: Dizziness Metformin HCl (Glucophage) 1,000 mg PO BID [facility] Last Admin: 05/20/18 08:47 Dose: 1,000 mg Multivitamins/Minerals (Therapeutic-M Tab) 1 tab PO DAILY [facility] Last Admin: 05/20/18 08:46 Dose: 1 tab Pravastatin Sodium (Pravachol) 40 mg PO DAILY [facility] Last Admin: 05/20/18 09:08 Dose: 40 mg Zolpidem Tartrate (Ambien) 5 mg PO HS PRN PRN Reason: Insomnia Last Admin: 05/17/18 01:32 Dose: 5 mg - Labs Labs: 05/19/18 06:30 05/19/18 06:30
--- NOTE | 2018-05-20 15:36 | CP.PCM.DIS ---
Provider - Provider Date of Admission: 05/16/18 21:54 Attending physician: Kumar Santillan MD Primary care physician: Dr. Santillan Consults: 05/17/18 01:16 Urology Consult Routine Comment: UTI Consulting Provider: Dl Goodwin Consulting Physician: Dl Goodwin Reason for Consult: UTI 05/17/18 04:15 Nursing Referral for Wound Care Routine Comment: Physician Instructions: Reason For Exam: Low dirk scale 05/17/18 05:26 Case Management Referral Routine Comment: Physician Instructions: Reason For Exam: Reason for Referral: VNA Eval 05/17/18 11:40 Urology Consult Routine Comment: Consulting Provider: Nj Carcamo Consulting Physician: Nj Carcamo Reason for Consult: UTI 05/19/18 10:43 Neurology Consult Routine Comment: Consulting Provider: Bello Palacio Consulting Physician: Bello Palacio Reason for Consult: weakness 05/19/18 16:40 Neuro Surgery Consult Routine Comment: Consulting Provider: Bran Headley Consulting Physician: Bran Headley Reason for Consult: [employer] shunt/Generalized weakness Time Spent in preparation of Discharge (in minutes): 40 Diagnosis - Discharge Diagnosis (1) UTI (urinary tract infection) Status: Acute (2) Generalized weakness Status: Chronic (3) Fall Status: Acute (4) Dementia Status: Chronic (5) DMII (diabetes mellitus, type 2) Status: Chronic (6) Hypothyroid Status: Chronic Hospital Course - Lab Results Lab Results: Micro Results 05/16/18 20:40 Blood-Venous Blood Culture - Preliminary NO GROWTH AFTER 3 DAYS 05/16/18 21:08 Blood-Venous Blood Culture - Preliminary NO GROWTH AFTER 3 DAYS 05/16/18 20:40 Urine,Clean Catch Urine Culture - Final Escherichia Coli Most Recent Lab Values WBC 11.5 K/uL (4.8-10.8) H 05/19/18 06:30 RBC 4.15 Mil/uL (3.80-5.20) 05/19/18 06:30 Hgb 12.1 g/dL (12.0-16.0) 05/19/18 06:30 Hct 37.2 % (34.0-47.0) 05/19/18 06:30 MCV 89.6 fl (81.0-99.0) 05/19/18 06:30 MCH 29.2 pg (27.0-31.0) 05/19/18 06:30 MCHC 32.6 g/dL (33.0-37.0) L 05/19/18 06:30 RDW 13.9 % (11.5-14.5) 05/19/18 06:30 Plt Count 254 K/uL (130-400) 05/19/18 06:30 MPV 8.4 fl (7.2-11.7) 05/19/18 06:30 Neut % (Auto) 60.1 % (50.0-75.0) 05/19/18 06:30 Lymph % (Auto) 28.9 % (20.0-40.0) 05/19/18 06:30 Coles % (Auto) 8.5 % (0.0-10.0) 05/19/18 06:30 Eos % (Auto) 1.9 % (0.0-4.0) 05/19/18 06:30 Baso % (Auto) 0.6 % (0.0-2.0) 05/19/18 06:30 Neut # (Auto) 6.9 K/uL (1.8-7.0) 05/19/18 06:30 Lymph # (Auto) 3.3 K/uL (1.0-4.3) 05/19/18 06:30 Coles # (Auto) 1.0 K/uL (0.0-0.8) H 05/19/18 06:30 Eos # (Auto) 0.2 K/uL (0.0-0.7) 05/19/18 06:30 Baso # (Auto) 0.1 K/uL (0.0-0.2) 05/19/18 06:30 Sodium 138 mmol/l (132-148) 05/19/18 06:30 Potassium 4.3 MMOL/L (3.6-5.0) 05/19/18 06:30 Chloride 105 mmol/L (98-107) 05/19/18 06:30 Carbon Dioxide 23 mmol/L (22-30) 05/19/18 06:30 Anion Gap 14 (10-20) 05/19/18 06:30 BUN 16 mg/dl (7-17) 05/19/18 06:30 Creatinine 0.9 mg/dl (0.7-1.2) 05/19/18 06:30 Est GFR ( Amer) > 60 05/19/18 06:30 Est GFR (Non-Af Amer) > 60 05/19/18 06:30 POC Glucose (mg/dL) 210 mg/dL (65-110) H 05/20/18 11:12 Random Glucose 134 mg/dL (65-105) H 05/19/18 06:30 Calcium 10.1 mg/dL (8.4-10.2) 05/19/18 06:30 Total Bilirubin 0.5 mg/dl (0.2-1.3) 05/16/18 20:40 AST 34 U/L (14-36) 05/16/18 20:40 ALT 30 U/L (9-52) 05/16/18 20:40 Alkaline Phosphatase 95 U/L (38-126) 05/16/18 20:40 Troponin I < 0.0120 ng/mL (0.00-0.120) 05/16/18 20:40 Total Protein 8.3 G/DL (6.3-8.2) H 05/16/18 20:40 Albumin 4.6 g/dL (3.5-5.0) 05/16/18 20:40 Globulin 3.7 gm/dL (2.2-3.9) 05/16/18 20:40 Albumin/Globulin Ratio 1.2 (1.0-2.1) 05/16/18 20:40 Vitamin B12 260 pg/mL (239-931) 05/19/18 06:30 Folate > 20.0 ng/mL 05/19/18 06:30 TSH 3rd Generation 2.93 mIU/ML (0.46-4.68) 05/19/18 06:30 Prolactin 18.3 ng/mL (3.0-18.9) 05/19/18 10:00 Urine Color Maye (YELLOW) 05/16/18 20:40 Urine Clarity Cloudy (Clear) 05/16/18 20:40 Urine pH 6.0 (5.0-8.0) 05/16/18 20:40 Ur Specific Union 1.021 (1.003-1.030) 05/16/18 20:40 Urine Protein 30 mg/dL (NEGATIVE) 05/16/18 20:40 Urine Glucose (UA) Neg mg/dL (NEGATIVE) 05/16/18 20:40 Urine Ketones Trace mg/dL (NEGATIVE) 05/16/18 20:40 Urine Blood Negative (NEGATIVE) 05/16/18 20:40 Urine Nitrate Negative (NEGATIVE) 05/16/18 20:40 Urine Bilirubin Negative (NEGATIVE) 05/16/18 20:40 Urine Urobilinogen 2.0 mg/dL (0.2-1.0) H 05/16/18 20:40 Ur Leukocyte Esterase Small Bernice/uL (Negative) 05/16/18 20:40 Urine RBC (Auto) 4 /hpf (0-3) H 05/16/18 20:40 Urine Microscopic WBC 68 /hpf (0-5) H 05/16/18 20:40 Ur Squamous Epith Cells < 1 /hpf (0-5) 05/16/18 20:40 Urine Bacteria Rare (<OCC) 05/16/18 20:40 - Hospital Course Hospital Course: 77 year old female with pmhx of hydrocephalus s/p [employer] shut in place, seizures disorder dementia, DMII, HLD and urinary incontinence admitted to [facility] for eval and treatment of generalized weakness and a Fall. After admission, CT head and other imagining work ups negative for any acute changes. Neurology was consulted for weakness who recommended Neurosurgery to assess [employer] shunt failure. Patient is cleared by Neurology and neurosurgery for discharge. Patient will go to [facility] as instructed. Continue with medications as med rec and instructed. C/w home medications. Discharge Exam - Head Exam Head Exam: NORMAL INSPECTION - Eye Exam Eye Exam: Normal appearance Pupil Exam: NORMAL ACCOMODATION - Respiratory Exam Respiratory Exam: Clear to PA & Lateral, NORMAL BREATHING PATTERN. absent: Respiratory Distress - Cardiovascular Exam Cardiovascular Exam: REGULAR RHYTHM, +S1, +S2 - GI/Abdominal Exam GI & Abdominal Exam: Normal Bowel Sounds, Soft. absent: Tenderness - Extremities Exam Extremities exam: normal inspection - Back Exam Back exam: absent: CVA tenderness (L), CVA tenderness (R) - Neurological Exam Neurological exam: Alert, CN II-XII Intact, Oriented x3 - Psychiatric Exam Psychiatric exam: Normal Affect - Skin Skin Exam: Normal Color Discharge Plan - Discharge Medications Prescriptions: cefTRIAXone 1 gm [Rocephin 1 gram IVPB] 1 gm IVPB DAILY #5 bag - Follow Up Plan Condition: FAIR Disposition: REHAB FACILITY/REHAB UNIT Instructions: Dysuria (GEN), Generalized Weakness, Preventing Falls Referrals: Kumar Santillan MD [Staff Provider] -
--- NOTE | 2018-05-22 04:36 | CON ---
DATE: 05/20/2018 This is a 77-year-old female patient. I was called to evaluate because of urinary tract infection. The patient was seen at bedside. She has complaints of dysuria, urgency and urinary incontinence. At this time, she is in the hospital for significant amount of vertigo and instability on ambulating, so she currently is practically completely bedridden at this time and consequent to that, she is unable to ambulate to the bathroom to void, so her complaints of urinary incontinence appeared to be more related to her physical limitations than to perhaps a bladder condition at this time. Reviewing the chart on microbiology, she has an E. coli urinary tract infection, which is Cipro resistant. Other laboratory data showed that she has somewhat elevated sugar levels, most recent being 210 today. The patient is on ceftriaxone for the urinary tract infection at this time. Her BUN and creatinine are within normal limits. White count in the urine is 11,500. On physical examination, she currently has no catheter indwelling. Abdomen is soft. She is complaining of dysuria. The antibiotic is hanging at this time. I told her that the urinary tract infection will probably resolve within several days of the appropriate antibiotic treatment, and then perhaps she would then go on an oral regimen for sometime and once the patient is stabilized and more ambulatory, I would suspect that the urinary incontinence might resolve based on her ability then to reach her bathroom in sufficient time to void and without losing control. Nj Carcamo MD
== END 2018-05-20 20:40 | DRG 690 ==
LOC: H.ER 19:15 → H.ERHOLD 21:54 → H.TEL 05-17 00:15
PROVIDERS: ADMIT Internal Medicine; ATTEND Internal Medicine
DX: N39.0 Urinary tract infection, site not specified (principal); B96.20 Unspecified Escherichia coli [E. coli] as the cause of diseases classified elsewhere; G40.909 Epilepsy, unspecified, not intractable, without status epilepticus; E11.65 Type 2 diabetes mellitus with hyperglycemia; N39.498 Other specified urinary incontinence; F03.90 Unspecified dementia, unspecified severity, without behavioral disturbance, psychotic disturbance, mood disturbance, and anxiety; R53.1 Weakness; R26.2 Difficulty in walking, not elsewhere classified; I10 Essential (primary) hypertension; E03.9 Hypothyroidism, unspecified; E78.5 Hyperlipidemia, unspecified; E78.00 Pure hypercholesterolemia, unspecified; F32.9 Major depressive disorder, single episode, unspecified; M19.90 Unspecified osteoarthritis, unspecified site; Z96.651 Presence of right artificial knee joint; Z91.81 History of falling; Z86.73 Personal history of transient ischemic attack (TIA), and cerebral infarction without residual deficits; Z98.2 Presence of cerebrospinal fluid drainage device; Z85.038 Personal history of other malignant neoplasm of large intestine; Z79.84 Long term (current) use of oral hypoglycemic drugs; Z79.82 Long term (current) use of aspirin; Z79.890 Hormone replacement therapy

== ENCOUNTER 2018-06-22 11:03 | Inpatient (IN) | payer OTHER ==
[2018-06-22] MEDS ORDERED: Sodium Chloride 0.9% 1,000 ML IV STA (11:34)
[2018-06-22 12:28] LABS: VENOUS BLOOD GAS BASE EXCESS 1.2 mmol/L (0.0-2.0); VENOUS BLOOD GAS PCO2 44 mmHg (40-60); VENOUS BLOOD GAS PO2 19 mm/Hg (30-55); VENOUS BLOOD PH 7.39 (7.32-7.43)
[2018-06-22 12:49] LABS: BASO # 0.1 K/uL (0.0-0.2); BASO % 0.7 % (0.0-2.0); EOS # 0.2 K/uL (0.0-0.7); EOS % 1.5 % (0.0-4.0); HEMOGLOBIN 12.6 g/dL (12.0-16.0); LYMPH # 3.1 K/uL (1.0-4.3); LYMPH % 25.3 % (20.0-40.0); MEAN CELL VOLUME 89.8 fl (81.0-99.0); MEAN CORPUSCULAR HEMOGLOBIN 29.4 pg (27.0-31.0); MEAN CORPUSCULAR HGB CONC 32.7 g/dL (33.0-37.0); MEAN PLATELET VOLUME 8.6 fl (7.2-11.7); MONO % 7.8 % (0.0-10.0); NEUT # 7.9 K/uL (1.8-7.0); NEUT % 64.7 % (50.0-75.0); NRBC % 0.1 % (0.0-0.0); RBC 4.28 Mil/uL (3.80-5.20); RED CELL DISTRIBUTION WIDTH 13.6 % (11.5-14.5); WHITE BLOOD COUNT 12.2 K/uL (4.8-10.8)
[2018-06-22 13:05] LABS: BLOOD UREA NITROGEN 17 mg/dl (7-17); CALCIUM 10.5 mg/dL (8.4-10.2); GFR NON-AFRICAN AMERICAN > 60
--- NOTE | 2018-06-22 14:15 | CT ---
Date of service: 06/22/2018 PROCEDURE: CT HEAD WITHOUT CONTRAST. HISTORY: Weakness in a patient with history of [employer] shunt. COMPARISON: None available. TECHNIQUE: Axial computed tomography images were obtained through the head/brain without intravenous contrast. Radiation dose: Total exam DLP = 934.94 mGy-cm. This CT exam was performed using one or more of the following dose reduction techniques: Automated exposure control, adjustment of the mA and/or kV according to patient size, and/or use of iterative reconstruction technique. FINDINGS: HEMORRHAGE: No acute parenchymal, subarachnoid or extra-axial hemorrhage. Moderate to significant diffuse and confluent chronic low-attenuation white matter changes extending from the periventricular into the deep and subcortical regions bilaterally. Changes most likely represent chronic sequela of small vessel disease however chronic gliosis related to longstanding obstructive hydrocephalus could contribute. There is also discrete localized area of low attenuation surrounding the [employer] shunt tube within the right frontal white matter likely representing mild gliosis related to shunt placement. BRAIN: No mass effect or edema. No atrophy or chronic microvascular ischemic changes. VENTRICLES: Redemonstrated is dilatation of ventricular system, not withstanding in situ right sided [employer] shunt to which enters a right posterior anterior superior parietal medhat hole traverses through the right frontal lobe and into the superior aspect of the anterior margin right lateral ventricle and terminates just to the left of midline in the left lateral ventricle. CALVARIUM: Unremarkable. Calvarium intact not withstanding aforementioned right anterior superior parietal medhat hole through which a [employer] shunt tube extends. PARANASAL SINUSES: Unremarkable as visualized. No significant inflammatory changes. MASTOID AIR CELLS: Unremarkable as visualized. No inflammatory changes. OTHER FINDINGS: Changes of bilateral cataract surgery. IMPRESSION: No acute intracranial hemorrhage. Moderate to significant diffuse and confluent chronic low-attenuation white matter changes extending from the periventricular into the deep and subcortical regions bilaterally. Changes most likely represent chronic sequela of small vessel disease however chronic gliosis related to longstanding obstructive hydrocephalus could contribute. There is also discrete localized area of low attenuation surrounding the [employer] shunt tube within the right frontal white matter likely representing mild gliosis related to shunt placement. Redemonstrated is a dilatation of the ventricular system despite in situ [employer] shunt tube.
--- NOTE | 2018-06-22 15:00 | ED PDOC ---
HPI: Headache Time Seen by Provider: 06/22/18 11:14 Chief Complaint (Nursing): Headache Chief Complaint (Provider): Urinary Problems History Per: Patient History/Exam Limitations: no limitations Onset/Duration Of Symptoms: Days Current Symptoms Are (Timing): Still Present Additional Complaint(s): 77 y/o female with a PMHx of Dementia and Normal Pressure Hydrocephalus presents to the ED accompanied by for evaluation of "urinary problems" associated with a headache for the past couple of days. History obtained through patient and . reports patient has had foul smelling urine for the past couple of days and thinks she may have a UTI. notes patient additionally has a history of hydrocephalus and had a [employer] shunt was placed when the patient lived in [facility] a couple of years ago. Patient notes of seeing her neurosurgeon Dr. Brown in the office last week. Patient reports of frequently getting headaches and migraines. additionally notes patient gets frequent UTIs. Otherwise, patient denies fevers, vomiting, diarrhea and abdominal pain. states patient has had difficulty ambulating for the last few months and has been experiencing urinary incontinence for the past few months. PMD: Dr. Vincent Urologist: Dr. Carcamo Neurosurgeon: Dr. Brown Past Medical History Reviewed: Historical Data, Nursing Documentation, Vital Signs Vital Signs: Last Vital Signs Temp 98.7 F 06/22/18 11:05 Pulse 73 06/22/18 11:05 Resp 17 06/22/18 11:05 BP 147/64 06/22/18 11:05 Pulse Ox 99 06/22/18 11:05 - Medical History PMH: Arthritis, CVA (s/p CVA), Dementia, Depression, Diabetes, Hypercholesterolemia, Hypothyroidism, Migraine, Seizures (Currently takes medic ation perscribed from [facility]), TIA, Chronic Pain (back pain) Denies: CHF, COPD, HIV, HTN, Chronic Kidney Disease, Rheumatoid Arthritis Other PMH: normal pressure hydrocephalus - Surgical History Surgical History: Appendectomy, Cholecystectomy Other surgeries: [employer] shunt - Family History Family History: States: Unknown Family Hx - Living Arrangements Living Arrangements: With Family - Immunization History Hx Tetanus Toxoid Vaccination: No Hx Influenza Vaccination: Yes Hx Pneumococcal Vaccination: Yes - Home Medications Home Medications: Ambulatory Orders Medication Instructions Recorded Escitalopram [Lexapro] 20 mg PO DAILY 05/17/18 Levothyroxine [Synthroid] 25 mcg PO DAILY 05/17/18 Metformin HCl [Glucophage] 1,000 mg PO BID 05/17/18 Mirabegron [Myrbetriq] 50 mg PO DAILY 05/17/18 Multivitamin [Daily Multiple 1 tab PO DAILY 05/17/18 Vitamin] Pravastatin Sodium [Pravachol] 40 mg PO HS 05/17/18 busPIRone [Buspar] 5 mg PO Q12 05/17/18 Donepezil [Aricept] 5 mg PO HS tab 05/20/18 Aspirin [Ecotrin] 81 mg PO DAILY 06/22/18 Dulaglutide [Trulicity] 1.5 mg SC QWK 06/22/18 Glimepiride [Amaryl] 1 mg PO DAILY 06/22/18 Sucralfate [Carafate] 1 gm PO TID 06/22/18 Zolpidem [Ambien] 10 mg PO HS PRN 06/22/18 buPROPion [Wellbutrin] 75 mg PO DAILY 06/22/18 - Allergies Allergies/Adverse Reactions: Allergies Allergy/AdvReac Type Severity Reaction Status Date / Time No Known Allergies Allergy Verified 02/09/18 00:43 Review of Systems ROS Statement: Except As Marked, All Systems Reviewed And Found Negative Constitutional: Negative for: Fever Gastrointestinal: Negative for: Vomiting, Abdominal Pain, Diarrhea Genitourinary Female: Positive for: Dysuria, Incontinence Neurological: Positive for: Headache Physical Exam - Reviewed Nursing Documentation Reviewed: Yes Vital Signs Reviewed: Yes - Physical Exam Appears: Positive for: No Acute Distress Head Exam: Positive for: ATRAUMATIC, NORMAL INSPECTION (Craniotomy scar noted to the head), NORMOCEPHALIC Skin: Positive for: Normal Color, Warm, Dry Eye Exam: Positive for: Normal appearance, EOMI, PERRL Neck: Positive for: Limited ROM (secondary to pain). Negative for: Normal (Tenderness to palpation neck muscles bilaterally) Cardiovascular/Chest: Positive for: Regular Rate, Rhythm. Negative for: Murmur Respiratory: Positive for: Normal Breath Sounds. Negative for: Respiratory Distress Gastrointestinal/Abdominal: Positive for: Normal Exam, Soft. Negative for: Tenderness, Mass, Guarding, Rebound Back: Positive for: Normal Inspection. Negative for: L CVA Tenderness, R CVA Tenderness, Vertebral Tenderness Extremity: Positive for: Normal ROM (Full ROM of all extremities. ) Neurological/Psych: Positive for: Awake, Alert, Oriented (x3). Negative for: Gait (patient cannot ambulate at baseline) - Laboratory Results Result Diagrams: 06/22/18 12:00 06/22/18 12:00 Lab Results: pO2 19 mm/Hg (30-55) L 06/22/18 12:24 VBG pH 7.39 (7.32-7.43) 06/22/18 12:24 VBG pCO2 44 mmHg (40-60) 06/22/18 12:24 VBG HCO3 24.0 mmol/L 06/22/18 12:24 VBG Total CO2 28.0 mmol/L (22-28) 06/22/18 12:24 VBG O2 Sat (Calc) 29.7 % (40-65) L 06/22/18 12:24 VBG Base Excess 1.2 mmol/L (0.0-2.0) 06/22/18 12:24 VBG Potassium 6.1 mmol/L (3.6-5.2) H 06/22/18 12:24 Sodium 137.0 mmol/L (132-148) 06/22/18 12:24 Chloride 104.0 mmol/L (98-107) 06/22/18 12:24 Glucose 135 mg/dL (65-105) H 06/22/18 12:24 Lactate 1.2 mmol/L (0.7-2.1) 06/22/18 12:24 FiO2 21.0 % 06/22/18 12:24 - ECG O2 Sat by Pulse Oximetry: 99 (RA) Pulse Ox Interpretation: Normal Medical Decision Making Medical Decision Making: Time: 1138 Impression: UTI and Headache Differentials include but not limited to UTI, sepsis and migraine headache Plan: -- VBG -- CT Head w/o Contrast -- EKG -- BMP -- CBC with Differentials -- Motrin 400 mg PO -- Sodium Chloride iv 1000 mls/hr -- Rocephin 1 gm Sodium Chloride IV 100 mls/hr IVPB -- Blood Culture -- Urine C&S -- IV Insertion -- Urinary Straight Catheter -- Urinalysis 1412 FINDINGS: HEMORRHAGE: No acute parenchymal, subarachnoid or extra-axial hemorrhage. Moderate to significant diffuse and confluent chronic low-attenuation white matter changes extending from the periventricular into the deep and subcortical regions bilaterally. Changes most likely represent chronic sequela of small vessel disease however chronic gliosis related to longstanding obstructive hydrocephalus could contribute. There is also discrete localized area of low attenuation surrounding the [employer] shunt tube within the right frontal white matter likely representing mild gliosis related to shunt placement. BRAIN: No mass effect or edema. No atrophy or chronic microvascular ischemic changes. VENTRICLES: Redemonstrated is dilatation of ventricular system, not withstanding in situ right sided [employer] shunt to which enters a right posterior anterior superior parietal medhat hole traverses through the right frontal lobe and into the superior aspect of the anterior margin right lateral ventricle and terminates just to the left of midline in the left lateral ventricle. CALVARIUM: Unremarkable. Calvarium intact not withstanding aforementioned right anterior superior parietal medhat hole through which a [employer] shunt tube extends. PARANASAL SINUSES: Unremarkable as visualized. No significant inflammatory changes. MASTOID AIR CELLS: Unremarkable as visualized. No inflammatory changes. OTHER FINDINGS: Changes of bilateral cataract surgery. IMPRESSION: No acute intracranial hemorrhage. Moderate to significant diffuse and confluent chronic low-attenuation white matter changes extending from the periventricular into the deep and subcortical regions bilaterally. Changes most likely represent chronic sequela of small vessel disease however chronic gliosis related to longstanding obstructive hydrocephalus could contribute. There is also discrete localized area of low attenuation surrounding the [employer] shunt tube within the right frontal white matter likely representing mild gliosis related to shunt placement. Redemonstrated is a dilatation of the ventricular system despite in situ [employer] shunt tube. [address] Stallings for admission. Admission critieria: UTI, pyelonephritis, sepsis in a diabetic patient requiring IV antibitoics. Scribe Attestation: Documented by Adela Brennan, acting as a scribe for Yaneth Stratton MD. Provider Scribe Attestation: All medical record entries made by the Scribe were at my direction and p ersonally dictated by me. I have reviewed the chart and agree that the record accurately reflects my personal performance of the history, physical exam, medical decision making, and the department course for this patient. I have also personally directed, reviewed, and agree with the discharge instructions and disposition. Disposition - Clinical Impression Clinical Impression: Pyelonephritis, Headache, Sepsis - Patient ED Disposition Is Patient to be Admitted: Yes Discussed With Dr.: Adalberto Stallings Doctor Will See Patient In The: Hospital Counseled Patient/Family Regarding: Studies Performed, Diagnosis - Disposition Disposition Time: 17:00 Condition: FAIR - Pt Status Changed To: Hospital Disposition Of: Inpatient - Admit Certification Admit to Inpatient:: After my assessment, the patient will require hospitalization for at least two midnights. This is because of the severity of symptoms shown, intensity of services needed, and/or the medical risk in this patient being treated as an outpatient. - POA Present On Arrival: Poor Glycemic Control
[2018-06-22 16:14] LABS: URINE AMORPHOUS SEDIMENT OCC /ul (<OCC); URINE BACTERIA MANY (<OCC); URINE BILIRUBIN NEGATIVE (NEGATIVE); URINE BLOOD MODERATE (NEGATIVE); URINE CLARITY TURBID (Clear); URINE COLOR AMBER (YELLOW); URINE GLUCOSE (UA) NEG (NEGATIVE); URINE LEUKOCYTE ESTERASE LARGE Leu/uL (Negative); URINE PROTEIN 30 mg/dL (NEGATIVE); URINE UROBILINOGEN 0.2-1.0 mg/dL (0.2-1.0); WBC CLUMPS MANY /hpf
[2018-06-22] MEDS ORDERED: cefTRIAXone (Rocephin) 1 gm Inj ONE (18:07)
[2018-06-22] MEDS ORDERED: Glucagon Recombinant 1 mg Inj IM PRN (18:37)
[2018-06-22] MEDS ORDERED: Dextrose 50% SYRINGE Inj (50 ml) IV PRN (18:37)
--- NOTE | 2018-06-22 19:19 | CARD ---
APPROVED REPORT Date of service: 06/22/2018 EKG Measurement Heart [id number] <Conclusion> Normal sinus rhythm Minimal voltage criteria for LVH, may be normal variant Borderline ECG
[2018-06-22] MEDS ORDERED: Iohexol 300 100 ML IJ ONE (19:48)
[2018-06-22] MEDS ORDERED: Sodium Chloride 0.9% 50 ML IV ONE (19:48)
[2018-06-22] MEDS: Pravastatin Sodium 40 MG TAB PO SCH ×2 (22:54→22:59)
[2018-06-22] MEDS: Insulin Regular 100 units/ml SC SCH (23:00)
[2018-06-23] MEDS: Dextrose 5%/0.45% NS 1,000 ML IV SCH ×2 (00:12→13:06)
[2018-06-23] MEDS: Levothyroxine 25 MCG TAB PO SCH (06:00)
[2018-06-23 06:30] LABS: HEMOGLOBIN 12.7 g/dL (12.0-16.0); MEAN CELL VOLUME 89.7 fl (81.0-99.0); MEAN CORPUSCULAR HEMOGLOBIN 29.8 pg (27.0-31.0); MEAN CORPUSCULAR HGB CONC 33.2 g/dL (33.0-37.0); RBC 4.27 Mil/uL (3.80-5.20); RED CELL DISTRIBUTION WIDTH 13.4 % (11.5-14.5); WHITE BLOOD COUNT 10.1 K/uL (4.8-10.8)
[2018-06-23 06:45] LABS: ALB/GLOB RATIO 1.1 (1.0-2.1); ALBUMIN 4.1 g/dL (3.5-5.0); ALT/SGPT 19 U/L (9-52); AST/SGOT 19 U/L (14-36); BLOOD UREA NITROGEN 10 mg/dl (7-17); CALCIUM 9.8 mg/dL (8.4-10.2); GFR NON-AFRICAN AMERICAN > 60
[2018-06-23] MEDS ORDERED: MULTIVITAMIN PO SCH (09:00)
[2018-06-23] MEDS: Insulin Regular 100 units/ml SC SCH ×3 (09:59→18:03)
[2018-06-23] MEDS: Multivitamin With Minerals Tab PO SCH (10:06)
[2018-06-23] MEDS: GlipiZIDE 2.5 mg SR Tab PO SCH (10:06)
--- NOTE | 2018-06-23 14:21 | CT ---
Date of service: 06/22/2018 PROCEDURE: CT Abdomen and Pelvis with contrast HISTORY: UTI, lower abd pain COMPARISON: None. TECHNIQUE: Following the intravenous administration of iodinated contrast material, a CT examination of the abdomen and pelvis was performed from the domes of the diaphragms to the symphysis pubis with reformatted datasets provided in axial, sagittal and coronal planes. Oral contrast was not administered as per referring physician request. Contrast dose: Omnipaque 300, 90 cc Radiation dose: Total exam DLP = 820.28 mGy-cm. This CT exam was performed using one or more of the following dose reduction techniques: Automated exposure control, adjustment of the mA and/or kV according to patient size, and/or use of iterative reconstruction technique. FINDINGS: LOWER THORAX: Linear atelectasis or fibrosis in the bilateral lung bases, left greater than right. Cardiomegaly is noted as well as a small hiatal hernia. Made of ventriculoperitoneal shunt catheter anteriorly in the inferior presternal subcutaneous fat. LIVER: Hepatic granulomata noted near the dome posteriorly. Intrahepatic biliary duct dilatation appears stable related to prior cholecystectomy. GALLBLADDER AND BILE DUCTS: Postcholecystectomy changes again evident including stable dilatation of the common bile duct remaining approximately 10 mm greatest caliber without radiodense choledocholithiasis. Small caliber noted distally. PANCREAS: Unremarkable. No gross lesion or ductal dilatation. SPLEEN: Unremarkable. ADRENALS: Unremarkable. No mass. KIDNEYS AND URETERS: No obstructive uropathy bilaterally. No radiodense urolithiasis. Tiny cyst is better defined intrarenal at the midpole, more conspicuous due to intravenous contrast administration currently as opposed to noncontrast prior imaging. No definite solid mass appreciable bilaterally. VASCULATURE: Unremarkable. No aortic aneurysm. No aortic atherosclerotic calcification or mural plaque present. BOWEL: Minimal left colonic diverticular changes. No acute diverticulitis appreciable. No obstruction. No gross mural thickening. APPENDIX: Appendix not clearly identified and could reflect surgical absence. Clinically correlate. No CT evidence of appendicitis at this time. PERITONEUM: Ventricular peritoneal shunt catheter terminates at left upper quadrant abdomen with no associated fluid collection. No free fluid. No free air. LYMPH NODES: Unremarkable. No enlarged lymph nodes. BLADDER: Urine bladder is only mildly distended. Mural thickening is not excluded intrinsically. Consider potential cystitis REPRODUCTIVE: Prior hysterectomy reiterated. BONES: No acute fracture. OTHER FINDINGS: None. IMPRESSION: 1. Potential cystitis however urinary bladder is not fully distended. Clinically correlate further. No obstructive uropathy bilaterally. 2. Very infrequent left colonic diverticula. No diverticulitis appreciable. 3. No bowel obstruction, free intrarenal gas or ascites. 4. Prior cholecystectomy with related dilatation of the biliary tree, both intra and extrahepatic. 5. Prior hysterectomy. Preliminary report provided by Ramy, 06/22/2018, 9:15 p.m..
[2018-06-23] MEDS: Pravastatin Sodium 40 MG TAB PO SCH (21:56)
[2018-06-24] MEDS: Levothyroxine 25 MCG TAB PO SCH (05:36)
[2018-06-24 06:47] LABS: BASO # 0.1 K/uL (0.0-0.2); BASO % 0.6 % (0.0-2.0); HEMOGLOBIN 11.6 g/dL (12.0-16.0); LYMPH # 2.5 K/uL (1.0-4.3); LYMPH % 12.9 % (20.0-40.0); MEAN CELL VOLUME 88.7 fl (81.0-99.0); MEAN CORPUSCULAR HEMOGLOBIN 29.4 pg (27.0-31.0); MEAN CORPUSCULAR HGB CONC 33.1 g/dL (33.0-37.0); MEAN PLATELET VOLUME 8.6 fl (7.2-11.7); MONO # 1.6 K/uL (0.0-0.8); MONO % 8.2 % (0.0-10.0); NEUT % 78.3 % (50.0-75.0); RBC 3.95 Mil/uL (3.80-5.20); RED CELL DISTRIBUTION WIDTH 13.7 % (11.5-14.5)
[2018-06-24 06:58] LABS: WHITE BLOOD COUNT 19.2 K/uL (4.8-10.8)
[2018-06-24] MEDS: GlipiZIDE 2.5 mg SR Tab PO SCH (09:26)
[2018-06-24] MEDS: Multivitamin With Minerals Tab PO SCH (09:26)
[2018-06-24] MEDS: Insulin Regular 100 units/ml SC SCH ×4 (10:12→16:49)
[2018-06-25] MEDS: Pravastatin Sodium 40 MG TAB PO SCH ×2 (00:28→21:36)
[2018-06-25] MEDS: Insulin Regular 100 units/ml SC SCH ×5 (00:29→22:16)
--- NOTE | 2018-06-25 01:55 | CP.PCM.HP ---
History of Present Illness - History of Present Illness History of Present Illness: CC: Urinary incontinence with associated foul smelling urine. HPI: 77 y/o female pt with a PMH of CVA, DM, and hydrocephalus presented to the ED with foul smelling urine, as well as urinary incontinence. Per the patients , the pt gets frequent UTIs. Urinalysis revealed the presence of nitrites. PMH: Arthritis, CVA, Dementia, Depression, Diabetes, Hypercholesterolemia, Hypothyroidism, Migraine, Seizures, TIA, Chronic Pain (back pain), normal pre ssure hydrocephalus, UTI. PSH: Appendectomy, Cholecystectomy, HOT WIRE GLASS TUBE CUTTER shunt. Allergies: NKDA. Subjective Review of Systems: Reviewed and no additional remarkable complaints except urinary incontinence. Objective Appears: Anxious, Non-toxic, No Acute Distress. Head Exam: NORMAL INSPECTION, normocephalic. Eye Exam: Normal eye inspection, EOMI, PERRLA. Respiratory Exam: NORMAL BREATHING PATTERN, breath sounds clear bilaterally. Cardiovascular Exam: +S1, +S2. RRR. GI & Abdominal Exam: Soft, non-tender, non-distended. Neurological Exam: Alert, Awake, Oriented x3. Psychiatric exam: Normal mood. Calm and cooperative. Assessment/Impression/Plan: 1.) Urinary incontinence -Currently on Rocephin- empiric therapy for treatment of UTI. -Tylenol for fever. -Urology consulted in ED for eval of incontinence. -Obtain hgb a1C; strict glycemic control. -Pending cultures. -Continue current treatment. Present on Admission - Present on Admission Any Indicators Present on Admission: Yes Decubitus Ulcer Present: Yes Decubitus Ulcer Location: sacrum Decubitus Ulcer Stage: I Past Patient History - Infectious Disease Hx of Infectious Diseases: None - Past Medical History & Family History Past Medical History?: Yes - Past Social History Smoking Status: Never Smoked - CARDIAC Hx Congestive Heart Failure: No Hx Hypercholesterolemia: Yes Hx Hypertension: No - PULMONARY Hx Chronic Obstructive Pulmonary Disease (COPD): No - NEUROLOGICAL HX Cerebrovascular Accident: Yes Hx Dementia: Yes Hx Migraine: Yes Hx Seizures: Yes (Currently takes medication perscribed from [facility]) Hx Transient Ischemic Attacks (TIA): Yes Other/Comment: hydrochephalus - HEENT Hx HEENT Problems: No - RENAL Hx Chronic Kidney Disease: No - ENDOCRINE/METABOLIC Hx Diabetes Mellitus Type 2: Yes Hx Hypothyroidism: Yes - HEMATOLOGICAL/ONCOLOGICAL Hx Human Immunodeficiency Virus (HIV): No - INTEGUMENTARY Hx Dermatological Problems: Yes Other/Comment: skin ca (nose) with sx - MUSCULOSKELETAL/RHEUMATOLOGICAL Hx Arthritis: Yes Hx Falls: Yes Hx Rheumatoid Arthritis: No - GASTROINTESTINAL Hx Gastrointestinal Disorders: Yes Hx Bowel Surgery: Yes (Colectomy secondary to colon cancer) - GENITOURINARY/GYNECOLOGICAL Hx Genitourinary Disorders: Yes Hx Incontinence: Yes Hx Urinary Tract Infection: Yes - PSYCHIATRIC Hx Depression: Yes Hx Substance Use: No - SURGICAL HISTORY Hx Appendectomy: Yes Hx Cholecystectomy: Yes - ANESTHESIA Hx Anesthesia: Yes Hx Anesthesia Reactions: No Hx Malignant Hyperthermia: No Meds Allergies/Adverse Reactions: Allergies Allergy/AdvReac Type Severity Reaction Status Date / Time No Known Allergies Allergy Verified 02/09/18 00:43 Results - Vital Signs Recent Vital Signs: Last Vital Signs Temp 98.7 F 06/24/18 23:57 Pulse 92 H 06/24/18 23:57 Resp 18 06/24/18 23:57 BP 138/86 06/24/18 23:57 Pulse Ox 97 06/24/18 23:57 - Labs Result Diagrams: 06/24/18 06:00 06/23/18 05:30 Labs: Laboratory Results - last 24 hr 06/24/18 06/24/18 06/24/18 05:15 06:00 11:19 WBC 19.2 H D RBC 3.95 Hgb 11.6 L Hct 35.1 MCV 88.7 MCH 29.4 MCHC 33.1 RDW 13.7 Plt Count 295 MPV 8.6 Neut % (Auto) 78.3 H Lymph % (Auto) 12.9 L [place] % (Auto) 8.2 Eos % (Auto) 0.0 Baso % (Auto) 0.6 Neut # (Auto) 15.0 H Lymph # (Auto) 2.5 [place] # (Auto) 1.6 H Eos # (Auto) 0.0 Baso # (Auto) 0.1 POC Glucose (mg/dL) 233 H 251 H 06/24/18 06/24/18 15:30 21:18 WBC RBC Hgb Hct MCV MCH MCHC RDW Plt Count MPV Neut % (Auto) Lymph % (Auto) [place] % (Auto) Eos % (Auto) Baso % (Auto) Neut # (Auto) Lymph # (Auto) [place] # (Auto) Eos # (Auto) Baso # (Auto) POC Glucose (mg/dL) 251 H 229 H Assessment & Plan (1) UTI (urinary tract infection) Status: Acute
[2018-06-25 06:05] LABS: HEMOGLOBIN 11.2 g/dL (12.0-16.0); MEAN CELL VOLUME 88.5 fl (81.0-99.0); MEAN CORPUSCULAR HEMOGLOBIN 29.3 pg (27.0-31.0); MEAN CORPUSCULAR HGB CONC 33.1 g/dL (33.0-37.0); RBC 3.82 Mil/uL (3.80-5.20); RED CELL DISTRIBUTION WIDTH 13.7 % (11.5-14.5); WHITE BLOOD COUNT 17.7 K/uL (4.8-10.8)
[2018-06-25 06:24] LABS: ALB/GLOB RATIO 1.1 (1.0-2.1); ALBUMIN 3.9 g/dL (3.5-5.0); ALT/SGPT 26 U/L (9-52); AST/SGOT 19 U/L (14-36); BLOOD UREA NITROGEN 9 mg/dl (7-17); CALCIUM 9.4 mg/dL (8.4-10.2); GFR NON-AFRICAN AMERICAN > 60
[2018-06-25] MEDS: Levothyroxine 25 MCG TAB PO SCH (06:54)
[2018-06-25] MEDS: GlipiZIDE 2.5 mg SR Tab PO SCH (09:18)
[2018-06-25] MEDS: Multivitamin With Minerals Tab PO SCH (09:21)
[2018-06-25] MEDS ORDERED: Magnesium Sulfate 2 gm/50 ml 2 GM/50 ML BAG IVPB ONE (12:00)
--- NOTE | 2018-06-25 15:27 | CT ---
Date of service: 06/25/2018 PROCEDURE: CT HEAD WITHOUT CONTRAST. HISTORY: Increased lethargy, UTI, hx of INDEPENDENT TRADER shunt COMPARISON: 06/22/2018. TECHNIQUE: Axial computed tomography images were obtained through the head/brain without intravenous contrast. Radiation dose: Total exam DLP = 808.91 mGy-cm. This CT exam was performed using one or more of the following dose reduction techniques: Automated exposure control, adjustment of the mA and/or kV according to patient size, and/or use of iterative reconstruction technique. FINDINGS: HEMORRHAGE: No intracranial hemorrhage. BRAIN: There is redemonstration of confluent periventricular and subcortical hypodensities. There is no mass, mass effect or abnormal extra-axial fluid collection. There is no territorial infarction. The midline sagittal structures are normal. VENTRICLES: Right-sided transfrontal ventriculoperitoneal shunt catheter is stable in position traversing the right frontal horn of the lateral ventricle and terminating just to the left of the midline. Gliosis is identified in the right frontal lobe along the shunt catheter tract. There is no change in moderate ventricular dilatation. CALVARIUM: There is no calvarial fracture or extracranial soft tissue swelling. Right parietal medhat hole. PARANASAL SINUSES: Predominantly clear. MASTOID AIR CELLS: Predominantly clear. OTHER FINDINGS: None. IMPRESSION: 1. No acute intracranial abnormality. 2. Little interval change in moderate ventricular dilatation and confluent periventricular and subcortical low-density regions which may be related to a combination of chronic microvascular ischemia and subependymal edema from ventricular dilatation.
[2018-06-25] MEDS: Potassium Chloride 20 mEq 100 ML IVPB SCH ×2 (16:04→18:06)
--- NOTE | 2018-06-25 17:37 | CP.PCM.CON ---
History of Present Illness - History of Present Illness History of Present Illness: 77 y/o female with a PMHx of Dementia and Normal Pressure Hydrocephalus presents to the ED accompanied by for evaluation of "urinary problems" associated with a headache for the past couple of days. 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 Patient notes of seeing her neurosurgeon Dr. Brown in the office last week. Patient reports of frequently getting headaches and migraines as well as inability to walk unassisted as before additionally notes patient gets frequent UTIs. states patient has had difficulty ambulating for the last few months and has been experiencing urinary incontinence for the past few months. - Medical History PMH: Arthritis, CVA (s/p CVA), Dementia, Depression, Diabetes, Hypercholesterolemia, Hypothyroidism, Migraine, Seizures (Currently takes medication perscribed from [facility]), TIA, Chronic Pain (back pain) Denies: CHF, COPD, HIV, HTN, Chronic Kidney Disease, Rheumatoid Arthritis Other PMH: normal pressure hydrocephalus Review of Systems - Review of Systems All systems: reviewed and no additional remarkable complaints except - Constitutional Constitutional: As Per HPI - EENT Eyes: absent: As Per HPI, Blind Spots, Blurred Vision, Change in Vision, Decreased Night Vision, Diplopia, Discharge, Dry Eye, Exophthalmos, Floaters, Irritation, Itchy Eyes, Loss of Peripheral Vision, Pain, Photophobia, Requires Corrective Lenses, Sees Flashes, Spots in Vision, Tunnel Vision, Other Visual Disturbances, Loss of Vision, Other Ears: absent: As Per HPI, Decreased Hearing, Ear Discharge, Ear Pain, Tinnitus, Abnormal Hearing, Disequilibrium, Dizziness, Other Nose/Mouth/Throat: absent: As Per HPI, Epistaxis, Nasal Congestion, Nasal Discharge, Nasal Obstruction, Nasal Trauma, Nose Pain, Post Nasal Drip, Sinus Pain, Sinus Pressure, Bleeding Gums, Change in Voice, Dental Pain, Dry Mouth, Dysphagia, Halitosis, Hoarsness, Lip Swelling, Mouth Lesions, Mouth Pain, Odynophagia, Sore Throat, Throat Swelling, Tongue Swelling, Facial Pain, Neck Pain, Neck Mass, Other - Breasts Breasts: absent: As Per HPI, Change in Shape, Mass, Pain, Nipple Discharge, Nipple Inversion, Skin Changes, Swelling, Other - Cardiovascular Cardiovascular: absent: As Per HPI, Acrocyanosis, Chest Pain, Chest Pain at Rest, Chest Pain with Activity, Claudication, Diaphoresis, Dyspnea, Dyspnea on Exertion, Edema, Irregular Heart Rhythm, Pain Radiating to Arm/Neck/Jaw, Leg Edema, Leg Ulcers, Lightheadedness, Orthopnea, Palpitations, Paroxysmal Nocturnal Dyspnea, Pedal Edema, Radiating Pain, Rapid Heart Rate, Slow Heart Rate, Syncope, Other - Respiratory Respiratory: As Per HPI. absent: Cough, Dyspnea, Hemoptysis, Dyspnea on Exertion, Wheezing, Snoring, Stridor, Pain on Inspiration, Chest Congestion, Excessive Mucous Production, Change in Mucous Color, Pain with Coughing, Other - Gastrointestinal Gastrointestinal: absent: As Per HPI, Abdominal Pain, Belching, Bloating, Change in Bowel Habits, Change in Stool Character, Coffee Ground Emesis, Constipation, Cramping, Diarrhea, Dyspepsia, Dysphagia, Early Satiety, Excessive Flatus, Fecal Incontinence, Heartburn, Hematemesis, Hematochezia, Loose Stools, Melena, Nausea, Odynophagia, Temesmus, Vomiting, Other - Genitourinary Genitourinary: As Per HPI - Reproductive: Female Reproductive:Female: absent: As Per HPI, Amenorrhea, Amenorrhea/ Control, Currently Menstual, Cycle <21 Days, Cycle >35 Days, Cycle Variable, Menses 1-7 Days, Menses >/= 8 Days, Menses Variable, Cycle > 4 Weeks Between, No Menses for 6 Months, Heavy Menses, Light Menses, Normal Menses, Spotting Between Cycles, S/P Hysterectomy, Menopausal, Post Menopausal, Premenarche, Abnormal Vaginal Bleeding, Dysmenorrhea, Dyspareunia, Genital Lesions, Genital Pruritis, Pelvic Pain, Prolapse Symptoms, Sexual Dysfunction, Vaginal Discharge, Vaginal Dryness, Vaginal Odor, Vaginal Pruritis, Other - Menstruation Menstruation: absent: As Per HPI, Amenorrhea, Amenorrhea/ Control, Currently Menstual, Cycle <21 Days, Cycle >35 Days, Cycle Variable, Menses 1-7 Days, Menses >/= 8 Days, Menses Variable, Cycle > 4 Weeks Between, No Menses for 6 Months, Heavy Menses, Light Menses, Normal Menses, Spotting Between Cycles, S/P Hysterectomy, Menopausal, Post Menopausal, Premenarche, Abnormal Vaginal Bleeding, Dysmenorrhea, Other - Musculoskeletal Musculoskeletal: absent: As Per HPI, Abnormal Gait, Arthralgias, Atrophy, Back Pain, Deformity, Joint Swelling, Limited Range of Motion, Loss of Height, Muscle Cramps, Muscle Weakness, Myalgias, Neck Pain, Numbness, Radiating Pain into Limb, Stiffness, Tingling, Other - Integumentary Integumentary: absent: As Per HPI, Acne, Alopecia, Bleeding Lesions, Change in Hair, Change in Nails, Change in Pigmentation, Changing Lesions, Dry Skin, Erythema, Furuncle, Hirsutism, Lesions, New Lesions, Non-Healing Lesions, Photo sensitivity, Pruritus, Rash, Skin Pain, Skin Ulcer, Sores, Striae, Swelling, Unusual Bruising, Wounds, Jaundice, Other - Neurological Neurological: As Per HPI - Psychiatric Psychiatric: absent: As Per HPI, Abnormal Sleep Pattern, Anhedonia, Anxiety, Auditory Hallucinations, Behavioral Changes, Change in Appetite, Change in Libido, Confusion, Depression, Difficulty Concentrating, Hallucinations, Homicidal Ideation, Hopelessness, Irritability, Memory Loss, Mood Swings, Panic Attacks, Paranoia, Suicidal Ideation, Visual Hallucinations, Tactile Hallucinations, Other - Endocrine Endocrine: absent: As Per HPI, Change in Body Appearance, Change in Libido, Cold Intolorance, Deepening of Voice, Excessive Sweating, Fatigue, Flushing, Heat Intolorance, Increase in Ring/Shoe/Hat Size, Palpitations, Polydipsia, Polyphagia, Polyuria, Other - Hematologic/Lymphatic Hematologic: absent: As Per HPI, Easy Bleeding, Easy Bruising, Lymphadenopathy, Other Past Patient History - Infectious Disease Hx of Infectious Diseases: None - Past Medical History & Family History Past Medical History?: Yes - Past Social History Smoking Status: Never Smoked - CARDIAC Hx Congestive Heart Failure: No Hx Hypercholesterolemia: Yes Hx Hypertension: No - PULMONARY Hx Chronic Obstructive Pulmonary Disease (COPD): No - NEUROLOGICAL HX Cerebrovascular Accident: Yes Hx Dementia: Yes Hx Migraine: Yes Hx Seizures: Yes (Currently takes medication perscribed from [facility]) Hx Transient Ischemic Attacks (TIA): Yes Other/Comment: hydrochephalus - HEENT Hx HEENT Problems: No - RENAL Hx Chronic Kidney Disease: No - ENDOCRINE/METABOLIC Hx Diabetes Mellitus Type 2: Yes Hx Hypothyroidism: Yes - HEMATOLOGICAL/ONCOLOGICAL Hx Human Immunodeficiency Virus (HIV): No - INTEGUMENTARY Hx Dermatological Problems: Yes Other/Comment: skin ca (nose) with sx - MUSCULOSKELETAL/RHEUMATOLOGICAL Hx Arthritis: Yes Hx Falls: Yes Hx Rheumatoid Arthritis: No - GASTROINTESTINAL Hx Gastrointestinal Disorders: Yes Hx Bowel Surgery: Yes (Colectomy secondary to colon cancer) - GENITOURINARY/GYNECOLOGICAL Hx Genitourinary Disorders: Yes Hx Incontinence: Yes Hx Urinary Tract Infection: Yes - PSYCHIATRIC Hx Depression: Yes Hx Substance Use: No - SURGICAL HISTORY Hx Appendectomy: Yes Hx Cholecystectomy: Yes - ANESTHESIA Hx Anesthesia: Yes Hx Anesthesia Reactions: No Hx Malignant Hyperthermia: No Meds Allergies/Adverse Reactions: Allergies Allergy/AdvReac Type Severity Reaction Status Date / Time No Known Allergies Allergy Verified 02/09/18 00:43 - Medications Medications: Current Medications Acetaminophen (Tylenol 325mg Tab) 650 mg PO Q4 PRN PRN Reason: Fever >100.4 F Aspirin (Ecotrin) 81 mg PO DAILY [facility] Last Admin: 06/25/18 09:17 Dose: 81 mg Bupropion HCl (Wellbutrin) 75 mg PO DAILY [facility] Last Admin: 06/25/18 09:22 Dose: 75 mg Buspirone HCl (Buspar) 5 mg PO Q12 [facility] Last Admin: 06/25/18 09:17 Dose: 5 mg Dextrose (Dextrose 50% Inj) 0 ml IV STAT PRN; Protocol PRN Reason: Hypoglycemia Protocol Dextrose (Glutose 15) 0 gm PO ONCE PRN; Protocol PRN Reason: Hypoglycemia Protocol Donepezil HCl (Aricept) 5 mg PO HS [facility] Last Admin: 06/25/18 00:28 Dose: 5 mg Escitalopram Oxalate (Lexapro) 20 mg PO DAILY [facility] Last Admin: 06/25/18 09:21 Dose: 20 mg Glipizide (Glucotrol Xl) 2.5 mg PO BRK [facility] Last Admin: 06/25/18 09:18 Dose: 2.5 mg Glucagon (Glucagen Diagnostic Kit) 0 mg IM STAT PRN; Protocol PRN Reason: Hypoglycemia Protocol Ceftriaxone Sodium 1 gm/ (Sodium Chloride) 100 mls @ 100 mls/hr IVPB DAILY [facility]; Protocol Last Admin: 06/25/18 10:26 Dose: 100 mls/hr Vancomycin HCl 1 gm/ Sodium (Chloride) 250 mls @ 166.667 mls/hr IVPB Q12 [facility]; Protocol Last Admin: 06/25/18 09:22 Dose: 166.667 mls/hr Insulin Human Regular (Humulin R) 0 units SC ACCU-CHECK [facility]; Protocol Last Admin: 06/25/18 16:50 Dose: 2 units Levothyroxine Sodium (Synthroid) 25 mcg PO DAILY@0630 [facility] Last Admin: 06/25/18 06:54 Dose: 25 mcg Metformin HCl (Glucophage) 1,000 mg PO BID [facility] Last Admin: 06/25/18 16:50 Dose: 1,000 mg Multivitamins/Minerals (Therapeutic-M Tab) 1 tab PO DAILY [facility] Last Admin: 06/25/18 09:21 Dose: 1 tab Pravastatin Sodium (Pravachol) 40 mg PO HS [facility] Last Admin: 06/25/18 00:28 Dose: 40 mg Sucralfate (Carafate Tab) 1 gm PO TIDAC [facility] Last Admin: 06/25/18 16:49 Dose: 1 gm Physical Exam - Constitutional Appears: Non-toxic, No Acute Distress, Confused, Chronically Ill - Head Exam Head Exam: ATRAUMATIC, NORMOCEPHALIC. absent: NORMAL INSPECTION - Eye Exam Eye Exam: PERRL Pupil Exam: NORMAL ACCOMODATION - ENT Exam ENT Exam: Mucous Membranes Dry - Neck Exam Neck exam: Negative for: Lymphadenopathy - Respiratory Exam Respiratory Exam: Decreased Breath Sounds - Cardiovascular Exam Cardiovascular Exam: REGULAR RHYTHM - GI/Abdominal Exam GI & Abdominal Exam: Normal Bowel Sounds, Soft. absent: Tenderness - Rectal Exam Rectal Exam: Deferred - Exam Speculum exam: Cervical Discharge, Erythema, Foreign Body, Laceration, NORMAL SPECULUM EXAM, Tissue, Vaginal Bleeding, Vaginal Discharge Bimanual exam: NORMAL BIMANUAL EXAM - Extremities Exam Extremities exam: Positive for: normal inspection, pedal edema, pedal pulses present. Negative for: calf tenderness, tenderness - Back Exam Back exam: NORMAL INSPECTION - Neurological Exam Neurological exam: Alert, CN II-XII Intact, Normal Gait, Oriented x3, Reflexes Normal - Psychiatric Exam Psychiatric exam: Normal Affect, Normal Mood - Skin Skin Exam: Dry, Intact, Normal Color, Warm Results - Vital Signs Recent Vital Signs: Last Vital Signs Temp 98.1 F 06/25/18 16:33 Pulse 78 06/25/18 16:33 Resp 18 06/25/18 16:33 BP 116/64 04/18/19 16:33 Pulse Ox 95 06/25/18 16:33 - Labs Result Diagrams: 06/25/18 05:55 06/25/18 05:55 Labs: Laboratory Results - last 24 hr 06/24/18 06/25/18 06/25/18 21:18 05:28 05:55 WBC 17.7 H RBC 3.82 Hgb 11.2 L Hct 33.8 L MCV 88.5 MCH 29.3 MCHC 33.1 RDW 13.7 Plt Count 246 Sodium Potassium Chloride Carbon Dioxide Anion Gap BUN Creatinine Est GFR ( Amer) Est GFR (Non-Af Amer) POC Glucose (mg/dL) 229 H 193 H Random Glucose Calcium Magnesium Total Bilirubin AST ALT Alkaline Phosphatase Total Protein Albumin Globulin Albumin/Globulin Ratio 06/25/18 06/25/18 06/25/18 05:55 10:46 15:28 WBC RBC Hgb Hct MCV MCH MCHC RDW Plt Count Sodium 136 Potassium 3.1 L Chloride 103 Carbon Dioxide 23 Anion Gap 13 BUN 9 Creatinine 0.7 Est GFR ( Amer) > 60 Est GFR (Non-Af Amer) > 60 POC Glucose (mg/dL) 185 H 213 H Random Glucose 195 H Calcium 9.4 Magnesium 1.3 L Total Bilirubin 0.4 AST 19 ALT 26 Alkaline Phosphatase 88 Total Protein 7.3 Albumin 3.9 Globulin 3.5 Albumin/Globulin Ratio 1.1 Assessment & Plan (1) Dementia Status: Acute (2) Pyelonephritis Status: Acute (3) Sepsis Status: Acute - Assessment and Plan (Free Text) Assessment: 77 y/o female pt with a PMH of CVA, DM, and hydrocephalus presented to the ED with foul smelling urine, as well as urinary incontinence. Per the patients , the pt gets frequent UTIs. Also c/o confusion and inability to ambualate PMH: Arthritis, CVA, Dementia, Depression, Diabetes, Hypercholesterolemia, Hypothyroidism, Migraine, Seizures, TIA, Chronic Pain (back pain), normal pressure hydrocephalus, UTI. r/o sepsis from NH r/o recurrent CVA r/o infected [employer] S[employer]IST shunt with SBP consider MRI head, consider LP and or abdominal paracentesis cont IV antibiotics
[2018-06-25] MEDS: cefTRIAXone 2 GM in Sodium Chloride 0.9% 100 ML IVPB SCH (23:52)
[2018-06-26] MEDS: Levothyroxine 25 MCG TAB PO SCH (05:33)
[2018-06-26] MEDS: Insulin Regular 100 units/ml SC SCH ×4 (07:34→22:22)
[2018-06-26] MEDS: Multivitamin With Minerals Tab PO SCH (08:35)
[2018-06-26] MEDS: GlipiZIDE 2.5 mg SR Tab PO SCH (08:36)
[2018-06-26 09:51] LABS: HEMOGLOBIN 10.8 g/dL (12.0-16.0); MEAN CELL VOLUME 88.6 fl (81.0-99.0); MEAN CORPUSCULAR HGB CONC 32.7 g/dL (33.0-37.0); RBC 3.73 Mil/uL (3.80-5.20); RED CELL DISTRIBUTION WIDTH 13.8 % (11.5-14.5); WHITE BLOOD COUNT 12.2 K/uL (4.8-10.8)
[2018-06-26 10:07] LABS: ALBUMIN 3.5 g/dL (3.5-5.0); ALT/SGPT 31 U/L (9-52); AST/SGOT 29 U/L (14-36); BLOOD UREA NITROGEN 10 mg/dl (7-17); GFR NON-AFRICAN AMERICAN > 60
[2018-06-26] MEDS: cefTRIAXone 2 GM in Sodium Chloride 0.9% 100 ML IVPB SCH ×2 (11:03→23:56)
--- NOTE | 2018-06-26 12:36 | CP.PCM.PN ---
Subjective - Date & Time of Evaluation Date of Evaluation: 06/26/18 Time of Evaluation: 12:34 - Subjective Subjective: pt was in my office [address] is unchanged since prior discussed with who does not understand I reset shunt 1 week ago and told him that we need to repeat ct in 4 weeks if this doesnotchange appearance of ventricles then would need to replace shunt, however he wishes shunt to be removed. I told him that there is no benefit of removing non working shunt, only risk There is nothing to do now from my point of view they have pending appoint ment for repeat ct and office appointment Objective - Vital Signs/Intake and Output Vital Signs (last 24 hours): Temp Pulse Resp BP Pulse Ox 98.2 F 81 19 128/68 97 06/26/18 07:42 06/26/18 11:19 06/26/18 07:42 06/26/18 07:42 06/26/18 11:19 - Medications Medications: Current Medications Acetaminophen (Tylenol 325mg Tab) 650 mg PO Q4 PRN PRN Reason: Fever >100.4 F Aspirin (Ecotrin) 81 mg PO DAILY [facility] Last Admin: 06/26/18 08:37 Dose: 81 mg Bupropion HCl (Wellbutrin) 75 mg PO DAILY [facility] Last Admin: 06/26/18 08:36 Dose: 75 mg Buspirone HCl (Buspar) 5 mg PO Q12 [facility] Last Admin: 06/26/18 08:35 Dose: 5 mg Dextrose (Dextrose 50% Inj) 0 ml IV STAT PRN; Protocol PRN Reason: Hypoglycemia Protocol Dextrose (Glutose 15) 0 gm PO ONCE PRN; Protocol PRN Reason: Hypoglycemia Protocol Donepezil HCl (Aricept) 5 mg PO HS [facility] Last Admin: 06/25/18 21:36 Dose: 5 mg Escitalopram Oxalate (Lexapro) 20 mg PO DAILY [facility] Last Admin: 06/26/18 08:36 Dose: 20 mg Glipizide (Glucotrol Xl) 2.5 mg PO BRK [facility] Last Admin: 06/26/18 08:36 Dose: 2.5 mg Glucagon (Glucagen Diagnostic Kit) 0 mg IM STAT PRN; Protocol PRN Reason: Hypoglycemia Protocol Vancomycin HCl 1 gm/ Sodium (Chloride) 250 mls @ 166.667 mls/hr IVPB Q12 [facility]; Protocol Last Admin: 06/26/18 08:30 Dose: 166.667 mls/hr Ceftriaxone Sodium 2 gm/ (Sodium Chloride) 100 mls @ 100 mls/hr IVPB Q12H [facility]; Protocol Last Admin: 06/25/18 23:52 Dose: 100 mls/hr Insulin Human Regular (Humulin R) 0 units SC ACCU-CHECK [facility]; Protocol Last Admin: 06/26/18 07:34 Dose: 1 units Levothyroxine Sodium (Synthroid) 25 mcg PO DAILY@0630 [facility] Last Admin: 06/26/18 05:33 Dose: 25 mcg Metformin HCl (Glucophage) 1,000 mg PO BID [facility] Last Admin: 06/26/18 08:36 Dose: 1,000 mg Multivitamins/Minerals (Therapeutic-M Tab) 1 tab PO DAILY [facility] Last Admin: 06/26/18 08:35 Dose: 1 tab Pravastatin Sodium (Pravachol) 40 mg PO HS [facility] Last Admin: 06/25/18 21:36 Dose: 40 mg Sucralfate (Carafate Tab) 1 gm PO TIDAC [facility] Last Admin: 06/26/18 08:35 Dose: 1 gm - Labs Labs: 06/26/18 09:20 06/26/18 09:20
--- NOTE | 2018-06-26 12:57 | CP.PCM.PN ---
Subjective - Date & Time of Evaluation Date of Evaluation: 06/26/18 Time of Evaluation: 09:00 - Subjective Subjective: events noted afebrile in NAD awake alert Objective - Vital Signs/Intake and Output Vital Signs (last 24 hours): Temp Pulse Resp BP Pulse Ox 98.2 F 81 19 128/68 97 06/26/18 07:42 06/26/18 11:19 06/26/18 07:42 06/26/18 07:42 06/26/18 11:19 - Medications Medications: Current Medications Acetaminophen (Tylenol 325mg Tab) 650 mg PO Q4 PRN PRN Reason: Fever >100.4 F Aspirin (Ecotrin) 81 mg PO DAILY [facility] Last Admin: 06/26/18 08:37 Dose: 81 mg Bupropion HCl (Wellbutrin) 75 mg PO DAILY [facility] Last Admin: 06/26/18 08:36 Dose: 75 mg Buspirone HCl (Buspar) 5 mg PO Q12 [facility] Last Admin: 06/26/18 08:35 Dose: 5 mg Dextrose (Dextrose 50% Inj) 0 ml IV STAT PRN; Protocol PRN Reason: Hypoglycemia Protocol Dextrose (Glutose 15) 0 gm PO ONCE PRN; Protocol PRN Reason: Hypoglycemia Protocol Donepezil HCl (Aricept) 5 mg PO HS [facility] Last Admin: 06/25/18 21:36 Dose: 5 mg Escitalopram Oxalate (Lexapro) 20 mg PO DAILY [facility] Last Admin: 06/26/18 08:36 Dose: 20 mg Glipizide (Glucotrol Xl) 2.5 mg PO BRK [facility] Last Admin: 06/26/18 08:36 Dose: 2.5 mg Glucagon (Glucagen Diagnostic Kit) 0 mg IM STAT PRN; Protocol PRN Reason: Hypoglycemia Protocol Vancomycin HCl 1 gm/ Sodium (Chloride) 250 mls @ 166.667 mls/hr IVPB Q12 [facility]; Protocol Last Admin: 06/26/18 08:30 Dose: 166.667 mls/hr Ceftriaxone Sodium 2 gm/ (Sodium Chloride) 100 mls @ 100 mls/hr IVPB Q12H [facility]; Protocol Last Admin: 06/25/18 23:52 Dose: 100 mls/hr Insulin Human Regular (Humulin R) 0 units SC ACCU-CHECK [facility]; Protocol Last Admin: 06/26/18 07:34 Dose: 1 units Levothyroxine Sodium (Synthroid) 25 mcg PO DAILY@0630 [facility] Last Admin: 06/26/18 05:33 Dose: 25 mcg Metformin HCl (Glucophage) 1,000 mg PO BID [facility] Last Admin: 06/26/18 08:36 Dose: 1,000 mg Multivitamins/Minerals (Therapeutic-M Tab) 1 tab PO DAILY [facility] Last Admin: 06/26/18 08:35 Dose: 1 tab Pravastatin Sodium (Pravachol) 40 mg PO HS [facility] Last Admin: 06/25/18 21:36 Dose: 40 mg Sucralfate (Carafate Tab) 1 gm PO TIDAC [facility] Last Admin: 06/26/18 08:35 Dose: 1 gm - Labs Labs: 06/26/18 09:20 06/26/18 09:20 - Constitutional Appears: Non-toxic, No Acute Distress, Chronically Ill - Head Exam Head Exam: ATRAUMATIC, NORMAL INSPECTION, NORMOCEPHALIC - Eye Exam Eye Exam: EOMI, Normal appearance, PERRL Pupil Exam: NORMAL ACCOMODATION, PERRL - ENT Exam ENT Exam: Mucous Membranes Moist, Normal Exam - Neck Exam Neck Exam: Full ROM, Normal Inspection. absent: Lymphadenopathy - Respiratory Exam Respiratory Exam: Clear to Ausculation Bilateral, NORMAL BREATHING PATTERN - Cardiovascular Exam Cardiovascular Exam: REGULAR RHYTHM, +S1, +S2. absent: Murmur - GI/Abdominal Exam GI & Abdominal Exam: Soft, Normal Bowel Sounds. absent: Tenderness - Rectal Exam Rectal Exam: Deferred - Exam Exam: NORMAL INSPECTION - Extremities Exam Extremities Exam: Full ROM, Normal Capillary Refill, Normal Inspection. absent: Joint Swelling, Pedal Edema - Back Exam Back Exam: NORMAL INSPECTION - Neurological Exam Neurological Exam: Alert, Altered, Awake, CN II-XII Intact. absent: Normal Gait, Oriented x3 - Psychiatric Exam Psychiatric exam: Normal Affect, Normal Mood - Skin Skin Exam: Dry, Intact, Normal Color Assessment and Plan (1) Dementia Status: Acute (2) Pyelonephritis Status: Acute (3) Sepsis Status: Acute - Assessment and Plan (Free Text) Assessment: mental status improving cont rx for UTI for 14 days
--- NOTE | 2018-06-26 13:37 | CP.PCM.PN ---
Subjective - Date & Time of Evaluation Date of Evaluation: 06/25/18 Time of Evaluation: 11:00 - Subjective Subjective: patient seen and examined at bedside. Interim events noted patient remains lethargic, unable to provide appropriate verbal responses grimaces on palpation of abdomen available diagnostic data reviewed Review of Systems All systems: unable due to lethargy Objective Vital Signs Stable - Constitutional Appears: Lethargic Head Exam: NORMAL INSPECTION Respiratory Exam: NORMAL BREATHING PATTERN Cardiovascular Exam: +S1, +S2 GI & Abdominal Exam: Soft, ttp of lower abdomen Skin Exam: Normal Color, Warm Assessment and Plan monitor vitals monitor labs Cont meds Cont tx with IV abx consultants appreciated input MDR UTI, ID on board continue to monitor mental status, if no improvement consider further imaging/eval rest of plan as ordered Objective - Vital Signs/Intake and Output Vital Signs (last 24 hours): Temp Pulse Resp BP Pulse Ox 98.2 F 81 19 128/68 97 06/26/18 07:42 06/26/18 11:19 06/26/18 07:42 06/26/18 07:42 06/26/18 11:19 - Medications Medications: Current Medications Acetaminophen (Tylenol 325mg Tab) 650 mg PO Q4 PRN PRN Reason: Fever >100.4 F Aspirin (Ecotrin) 81 mg PO DAILY [facility] Last Admin: 06/26/18 08:37 Dose: 81 mg Bupropion HCl (Wellbutrin) 75 mg PO DAILY [facility] Last Admin: 06/26/18 08:36 Dose: 75 mg Buspirone HCl (Buspar) 5 mg PO Q12 [facility] Last Admin: 06/26/18 08:35 Dose: 5 mg Dextrose (Dextrose 50% Inj) 0 ml IV STAT PRN; Protocol PRN Reason: Hypoglycemia Protocol Dextrose (Glutose 15) 0 gm PO ONCE PRN; Protocol PRN Reason: Hypoglycemia Protocol Donepezil HCl (Aricept) 5 mg PO HS [facility] Last Admin: 06/25/18 21:36 Dose: 5 mg Escitalopram Oxalate (Lexapro) 20 mg PO DAILY [facility] Last Admin: 06/26/18 08:36 Dose: 20 mg Glipizide (Glucotrol Xl) 2.5 mg PO BRK [facility] Last Admin: 06/26/18 08:36 Dose: 2.5 mg Glucagon (Glucagen Diagnostic Kit) 0 mg IM STAT PRN; Protocol PRN Reason: Hypoglycemia Protocol Vancomycin HCl 1 gm/ Sodium (Chloride) 250 mls @ 166.667 mls/hr IVPB Q12 [facility]; Protocol Last Admin: 06/26/18 08:30 Dose: 166.667 mls/hr Ceftriaxone Sodium 2 gm/ (Sodium Chloride) 100 mls @ 100 mls/hr IVPB Q12H [facility]; Protocol Last Admin: 06/25/18 23:52 Dose: 100 mls/hr Insulin Human Regular (Humulin R) 0 units SC ACCU-CHECK [facility]; Protocol Last Admin: 06/26/18 07:34 Dose: 1 units Levothyroxine Sodium (Synthroid) 25 mcg PO DAILY@0630 [facility] Last Admin: 06/26/18 05:33 Dose: 25 mcg Metformin HCl (Glucophage) 1,000 mg PO BID [facility] Last Admin: 06/26/18 08:36 Dose: 1,000 mg Multivitamins/Minerals (Therapeutic-M Tab) 1 tab PO DAILY [facility] Last Admin: 06/26/18 08:35 Dose: 1 tab Pravastatin Sodium (Pravachol) 40 mg PO HS [facility] Last Admin: 06/25/18 21:36 Dose: 40 mg Sucralfate (Carafate Tab) 1 gm PO TIDAC [facility] Last Admin: 06/26/18 08:35 Dose: 1 gm - Labs Labs: 06/26/18 09:20 06/26/18 09:20 Assessment and Plan (1) Sepsis Status: Acute (2) UTI (urinary tract infection) Status: Acute (3) 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
--- NOTE | 2018-06-26 13:45 | CP.PCM.PN ---
Subjective - Date & Time of Evaluation Date of Evaluation: 06/26/18 Time of Evaluation: 11:00 - Subjective Subjective: patient seen and examined at bedside. Interim events noted More awake and alert today. Able to respond to questions. Abdominal pain worse with palpation denies cp/sob/fever/chills. available diagnostic data reviewed Review of Systems All systems: reviewed and no additional remarkable complaints except mentioned above Objective Vital Signs Stable - Constitutional Appears: No Acute Distress Head Exam: NORMAL INSPECTION Eye Exam: Normal appearance Respiratory Exam: NORMAL BREATHING PATTERN Cardiovascular Exam: +S1, +S2 GI & Abdominal Exam: Soft Neurological Exam: Alert, Awake Psychiatric exam: Normal Affect, Normal Mood Skin Exam: Normal Color, Warm Assessment and Plan monitor vitals monitor labs Cont meds Cont tx consultants appreciated input WBC remains elevated monitor to normal, dispo planning rest of plan as ordered Objective - Vital Signs/Intake and Output Vital Signs (last 24 hours): Temp Pulse Resp BP Pulse Ox 98.2 F 81 19 128/68 97 06/26/18 07:42 06/26/18 11:19 06/26/18 07:42 06/26/18 07:42 06/26/18 11:19 - Medications Medications: Current Medications Acetaminophen (Tylenol 325mg Tab) 650 mg PO Q4 PRN PRN Reason: Fever >100.4 F Aspirin (Ecotrin) 81 mg PO DAILY [facility] Last Admin: 06/26/18 08:37 Dose: 81 mg Bupropion HCl (Wellbutrin) 75 mg PO DAILY [facility] Last Admin: 06/26/18 08:36 Dose: 75 mg Buspirone HCl (Buspar) 5 mg PO Q12 [facility] Last Admin: 06/26/18 08:35 Dose: 5 mg Dextrose (Dextrose 50% Inj) 0 ml IV STAT PRN; Protocol PRN Reason: Hypoglycemia Protocol Dextrose (Glutose 15) 0 gm PO ONCE PRN; Protocol PRN Reason: Hypoglycemia Protocol Donepezil HCl (Aricept) 5 mg PO HS [facility] Last Admin: 06/25/18 21:36 Dose: 5 mg Escitalopram Oxalate (Lexapro) 20 mg PO DAILY [facility] Last Admin: 06/26/18 08:36 Dose: 20 mg Glipizide (Glucotrol Xl) 2.5 mg PO BRK [facility] Last Admin: 06/26/18 08:36 Dose: 2.5 mg Glucagon (Glucagen Diagnostic Kit) 0 mg IM STAT PRN; Protocol PRN Reason: Hypoglycemia Protocol Vancomycin HCl 1 gm/ Sodium (Chloride) 250 mls @ 166.667 mls/hr IVPB Q12 [facility]; Protocol Last Admin: 06/26/18 08:30 Dose: 166.667 mls/hr Ceftriaxone Sodium 2 gm/ (Sodium Chloride) 100 mls @ 100 mls/hr IVPB Q12H [facility]; Protocol Last Admin: 06/25/18 23:52 Dose: 100 mls/hr Insulin Human Regular (Humulin R) 0 units SC ACCU-CHECK [facility]; Protocol Last Admin: 06/26/18 07:34 Dose: 1 units Levothyroxine Sodium (Synthroid) 25 mcg PO DAILY@0630 [facility] Last Admin: 06/26/18 05:33 Dose: 25 mcg Metformin HCl (Glucophage) 1,000 mg PO BID [facility] Last Admin: 06/26/18 08:36 Dose: 1,000 mg Multivitamins/Minerals (Therapeutic-M Tab) 1 tab PO DAILY [facility] Last Admin: 06/26/18 08:35 Dose: 1 tab Pravastatin Sodium (Pravachol) 40 mg PO HS [facility] Last Admin: 06/25/18 21:36 Dose: 40 mg Sucralfate (Carafate Tab) 1 gm PO TIDAC [facility] Last Admin: 06/26/18 08:35 Dose: 1 gm - Labs Labs: 06/26/18 09:20 06/26/18 09:20 Assessment and Plan (1) Sepsis Status: Acute (2) UTI (urinary tract infection) Status: Acute (3) Infection with multi-drug resistant microorganisms Status: Acute (4) Lethargy Status: Resolved
[2018-06-26] MEDS: Potassium Chloride 20 mEq ER Tab PO ONE (17:01)
[2018-06-26] MEDS: Pravastatin Sodium 40 MG TAB PO SCH (22:00)
--- NOTE | 2018-06-26 23:49 | CP.PCM.PN ---
Subjective - Date & Time of Evaluation Date of Evaluation: 06/24/18 Time of Evaluation: 11:00 - Subjective Subjective: Pt seen and assessed at bedside. Remains lethargic, able to follow commands when prompted. Remains on Rocephin for UTI. Subjective Review of Systems: Reviewed and no additional remarkable complaints except urinary incontinence and lethargy. Objective Appears: Anxious, Non-toxic, No Acute Distress. Head Exam: NORMAL INSPECTION, normocephalic. Eye Exam: Normal eye inspection, EOMI, PERRLA. Respiratory Exam: NORMAL BREATHING PATTERN, breath sounds clear bilaterally. Cardiovascular Exam: +S1, +S2. RRR. GI & Abdominal Exam: Soft, non-tender, non-distended. Neurological Exam: Lethargic, able to follow basic commands. Psychiatric exam: Lethargic. Normal mood. Calm and cooperative. Assessment/Impression/Plan: 1.) UTI -Currently on Rocephin for treatment of UTI. -Vanco added. -CT Head showed no acute findings. -Given pt's history of hydrocephalus, we will monitor her mental status at this time. -If lethargy worsens, consider consulting neurosurgery and repeating CT head. -Continue current treatment. Objective - Vital Signs/Intake and Output Vital Signs (last 24 hours): Temp Pulse Resp BP Pulse Ox 97.7 F 73 18 95/61 L 97 06/26/18 16:05 06/26/18 16:05 06/26/18 16:05 06/26/18 16:05 06/26/18 16:05 - Medications Medications: Current Medications Acetaminophen (Tylenol 325mg Tab) 650 mg PO Q4 PRN PRN Reason: Fever >100.4 F Aspirin (Ecotrin) [address] [facility] Last Admin: 06/26/18 08:37 Dose: 81 mg Bupropion HCl (Wellbutrin) [address] [facility] Last Admin: 06/26/18 08:36 Dose: 75 mg Buspirone HCl (Buspar) [address] [facility] Last Admin: 06/26/18 22:22 Dose: 5 mg Dextrose (Dextrose 50% Inj) 0 ml IV STAT PRN; Protocol PRN Reason: Hypoglycemia Protocol Dextrose (Glutose 15) 0 gm PO ONCE PRN; Protocol PRN Reason: Hypoglycemia Protocol Donepezil HCl (Aricept) [address] [facility] Last Admin: 06/26/18 21:59 Dose: 5 mg Escitalopram Oxalate (Lexapro) [address] [facility] Last Admin: 06/26/18 08:36 Dose: 20 mg Glipizide (Glucotrol Xl) 2.[address] [facility] Last Admin: 06/26/18 08:36 Dose: 2.5 mg Glucagon (Glucagen Diagnostic Kit) 0 mg IM STAT PRN; Protocol PRN Reason: Hypoglycemia Protocol Vancomycin HCl 1 gm/ Sodium (Chloride) 250 mls @ 166.667 mls/hr IVPB Q12 [facility]; Protocol Last Admin: 06/26/18 22:00 Dose: 166.667 mls/hr Ceftriaxone Sodium 2 gm/ (Sodium Chloride) 100 mls @ 100 mls/hr IVPB Q12H [facility]; Protocol Last Admin: 06/26/18 11:03 Dose: 100 mls/hr Insulin Human Regular (Humulin R) 0 units SC ACCU-CHECK [facility]; Protocol Last Admin: 06/26/18 22:22 Dose: Not Given Levothyroxine Sodium (Synthroid) 25 mcg PO DAILY@0630 [facility] Last Admin: 06/26/18 05:33 Dose: 25 mcg Metformin HCl (Glucophage) 1,[address] [facility] Last Admin: 06/26/18 17:05 Dose: 1,000 mg Multivitamins/Minerals (Therapeutic-M Tab) [address] [facility] Last Admin: 06/26/18 08:35 Dose: 1 tab Pravastatin Sodium (Pravachol) [address] [facility] Last Admin: 06/26/18 22:00 Dose: 40 mg Sucralfate (Carafate Tab) [address] [facility] Last Admin: 06/26/18 17:02 Dose: 1 gm - Labs Labs: 06/26/18 09:20 06/26/18 09:20 Assessment and Plan (1) UTI (urinary tract infection) Status: Acute
[2018-06-27] MEDS: Levothyroxine 25 MCG TAB PO SCH (06:31)
[2018-06-27 07:22] LABS: HEMOGLOBIN 10.7 g/dL (12.0-16.0); MEAN CELL VOLUME 88.7 fl (81.0-99.0); MEAN CORPUSCULAR HEMOGLOBIN 29.4 pg (27.0-31.0); MEAN CORPUSCULAR HGB CONC 33.1 g/dL (33.0-37.0); RBC 3.65 Mil/uL (3.80-5.20); WHITE BLOOD COUNT 11.7 K/uL (4.8-10.8)
[2018-06-27 07:48] LABS: BLOOD UREA NITROGEN 12 mg/dl (7-17); GFR NON-AFRICAN AMERICAN > 60
[2018-06-27] MEDS: Insulin Regular 100 units/ml SC SCH ×4 (08:01→22:09)
[2018-06-27] MEDS: GlipiZIDE 2.5 mg SR Tab PO SCH (08:51)
[2018-06-27] MEDS: Multivitamin With Minerals Tab PO SCH (08:51)
--- NOTE | 2018-06-27 11:55 | CP.PCM.PN ---
Subjective - Date & Time of Evaluation Date of Evaluation: 06/27/18 Time of Evaluation: 11:54 - Subjective Subjective: patient seen and examined at bedside. Interim events noted feels week Abdominal pain with palpation denies cp/sob/fever/chills. available diagnostic data reviewed Review of Systems All systems: reviewed and no additional remarkable complaints except mentioned above Objective Vital Signs Stable - Constitutional Appears: No Acute Distress Head Exam: NORMAL INSPECTION Eye Exam: Normal appearance Respiratory Exam: NORMAL BREATHING PATTERN Cardiovascular Exam: +S1, +S2 GI & Abdominal Exam: Soft Neurological Exam: Alert, Awake Psychiatric exam: Normal Affect, Normal Mood Skin Exam: Normal Color, Warm Assessment and Plan monitor vitals monitor labs Cont meds Cont tx consultants appreciated input WBC remains elevated monitor to normal, dispo planning rest of plan as ordered Objective - Vital Signs/Intake and Output Vital Signs (last 24 hours): Temp Pulse Resp BP Pulse Ox 97.1 F L 54 L 20 93/54 L 97 06/27/18 08:16 06/27/18 08:16 06/27/18 08:16 06/27/18 08:16 06/27/18 08:16 - Medications Medications: Current Medications Acetaminophen (Tylenol 325mg Tab) 650 mg PO Q4 PRN PRN Reason: Fever >100.4 F Aspirin (Ecotrin) 81 mg PO DAILY [facility] Last Admin: 06/27/18 08:52 Dose: 81 mg Bupropion HCl (Wellbutrin) 75 mg PO DAILY [facility] Last Admin: 06/27/18 08:50 Dose: 75 mg Buspirone HCl (Buspar) 5 mg PO Q12 [facility] Last Admin: 06/27/18 08:50 Dose: 5 mg Dextrose (Dextrose 50% Inj) 0 ml IV STAT PRN; Protocol PRN Reason: Hypoglycemia Protocol Dextrose (Glutose 15) 0 gm PO ONCE PRN; Protocol PRN Reason: Hypoglycemia Protocol Donepezil HCl (Aricept) 5 mg PO HS [facility] Last Admin: 06/26/18 21:59 Dose: 5 mg Escitalopram Oxalate (Lexapro) 20 mg PO DAILY [facility] Last Admin: 06/27/18 08:52 Dose: 20 mg Glipizide (Glucotrol Xl) 2.5 mg PO BRK [facility] Last Admin: 06/27/18 08:51 Dose: 2.5 mg Glucagon (Glucagen Diagnostic Kit) 0 mg IM STAT PRN; Protocol PRN Reason: Hypoglycemia Protocol Vancomycin HCl 1 gm/ Sodium (Chloride) 250 mls @ 166.667 mls/hr IVPB Q12 [facility]; Protocol Last Admin: 06/27/18 08:53 Dose: 166.667 mls/hr Ceftriaxone Sodium 2 gm/ (Sodium Chloride) 100 mls @ 100 mls/hr IVPB Q12H [facility]; Protocol Last Admin: 06/26/18 23:56 Dose: 100 mls/hr Insulin Human Regular (Humulin R) 0 units SC ACCU-CHECK [facility]; Protocol Last Admin: 06/27/18 08:01 Dose: 1 units Levothyroxine Sodium (Synthroid) 25 mcg PO DAILY@0630 [facility] Last Admin: 06/27/18 06:31 Dose: 25 mcg Metformin HCl (Glucophage) 1,000 mg PO BID [facility] Last Admin: 06/27/18 08:51 Dose: 1,000 mg Multivitamins/Minerals (Therapeutic-M Tab) 1 tab PO DAILY [facility] Last Admin: 06/27/18 08:51 Dose: 1 tab Pravastatin Sodium (Pravachol) 40 mg PO HS [facility] Last Admin: 06/26/18 22:00 Dose: 40 mg Sucralfate (Carafate Tab) 1 gm PO TIDAC [facility] Last Admin: 06/27/18 08:50 Dose: 1 gm - Labs Labs: 06/27/18 05:30 06/27/18 05:30 Assessment and Plan (1) Sepsis Status: Acute (2) UTI (urinary tract infection) Status: Acute (3) Infection with multi-drug resistant microorganisms Status: Acute
[2018-06-27] MEDS: cefTRIAXone 2 GM in Sodium Chloride 0.9% 100 ML IVPB SCH ×2 (12:09→23:37)
--- NOTE | 2018-06-27 13:22 | CP.PCM.PN ---
Subjective - Date & Time of Evaluation Date of Evaluation: 06/27/18 Time of Evaluation: 07:00 - Subjective Subjective: admitted with sepsis / UTI E Coli and enterococcus was altered and febrile on admission appears awake alert now with mild confusion to time AGRICULTURIST shunt in place - no evidence of MENTAL HEALTH CASE MANAGER infection at this time seen by Neurosurgery Objective - Vital Signs/Intake and Output Vital Signs (last 24 hours): Temp Pulse Resp BP Pulse Ox 97.1 F L 54 L 20 93/54 L 97 06/27/18 08:16 06/27/18 08:16 06/27/18 08:16 06/27/18 08:16 06/27/18 08:16 - Medications Medications: Current Medications Acetaminophen (Tylenol 325mg Tab) 650 mg PO Q4 PRN PRN Reason: Fever >100.4 F Aspirin (Ecotrin) 81 mg PO DAILY [facility] Last Admin: 06/27/18 08:52 Dose: 81 mg Bupropion HCl (Wellbutrin) 75 mg PO DAILY [facility] Last Admin: 06/27/18 08:50 Dose: 75 mg Buspirone HCl (Buspar) 5 mg PO Q12 [facility] Last Admin: 06/27/18 08:50 Dose: 5 mg Dextrose (Dextrose 50% Inj) 0 ml IV STAT PRN; Protocol PRN Reason: Hypoglycemia Protocol Dextrose (Glutose 15) 0 gm PO ONCE PRN; Protocol PRN Reason: Hypoglycemia Protocol Donepezil HCl (Aricept) 5 mg PO HS [facility] Last Admin: 06/26/18 21:59 Dose: 5 mg Escitalopram Oxalate (Lexapro) 20 mg PO DAILY [facility] Last Admin: 06/27/18 08:52 Dose: 20 mg Glipizide (Glucotrol Xl) 2.5 mg PO BRK [facility] Last Admin: 06/27/18 08:51 Dose: 2.5 mg Glucagon (Glucagen Diagnostic Kit) 0 mg IM STAT PRN; Protocol PRN Reason: Hypoglycemia Protocol Vancomycin HCl 1 gm/ Sodium (Chloride) 250 mls @ 166.667 mls/hr IVPB Q12 [facility]; Protocol Last Admin: 06/27/18 08:53 Dose: 166.667 mls/hr Ceftriaxone Sodium 2 gm/ (Sodium Chloride) 100 mls @ 100 mls/hr IVPB Q12H [facility]; Protocol Last Admin: 06/26/18 23:56 Dose: 100 mls/hr Insulin Human Regular (Humulin R) 0 units SC ACCU-CHECK [facility]; Protocol Last Admin: 06/27/18 08:01 Dose: 1 units Levothyroxine Sodium (Synthroid) 25 mcg PO DAILY@0630 [facility] Last Admin: 06/27/18 06:31 Dose: 25 mcg Metformin HCl (Glucophage) 1,000 mg PO BID [facility] Last Admin: 06/27/18 08:51 Dose: 1,000 mg Multivitamins/Minerals (Therapeutic-M Tab) 1 tab PO DAILY [facility] Last Admin: 06/27/18 08:51 Dose: 1 tab Pravastatin Sodium (Pravachol) 40 mg PO HS [facility] Last Admin: 06/26/18 22:00 Dose: 40 mg Sucralfate (Carafate Tab) 1 gm PO TIDAC [facility] Last Admin: 06/27/18 08:50 Dose: 1 gm - Labs Labs: 06/27/18 05:30 06/27/18 05:30 - Constitutional Appears: Non-toxic, No Acute Distress, Chronically Ill - Head Exam Head Exam: ATRAUMATIC, NORMAL INSPECTION, NORMOCEPHALIC - Eye Exam Eye Exam: EOMI, Normal appearance, PERRL Pupil Exam: NORMAL ACCOMODATION, PERRL - ENT Exam ENT Exam: Mucous Membranes Moist, Normal Exam - Neck Exam Neck Exam: Full ROM, Normal Inspection. absent: Lymphadenopathy - Respiratory Exam Respiratory Exam: Clear to Ausculation Bilateral - Cardiovascular Exam Cardiovascular Exam: REGULAR RHYTHM, +S1, +S2. absent: Murmur - GI/Abdominal Exam GI & Abdominal Exam: Distended, Soft, Normal Bowel Sounds. absent: Tenderness - Rectal Exam Rectal Exam: Deferred - Extremities Exam Extremities Exam: Full ROM, Normal Capillary Refill, Normal Inspection. absent: Joint Swelling, Pedal Edema - Back Exam Back Exam: NORMAL INSPECTION. absent: CVA tenderness (L), CVA tenderness (R) - Neurological Exam Neurological Exam: Alert, Awake, CN II-XII Intact. absent: Normal Gait, Or iented x3 Neuro motor strength exam: Left Upper Extremity: 4, Right Upper Extremity: 4, Left Lower Extremity: 2/1, Right Lower Extremity: 2/1 - Psychiatric Exam Psychiatric exam: Depressed - Skin Skin Exam: Dry, Intact, Normal Color, Warm Assessment and Plan (1) Dementia Status: Acute (2) Pyelonephritis Status: Acute (3) Sepsis Status: Acute - Assessment and Plan (Free Text) Assessment: 77 yo female with hx of CVA, NPH s/p AGRICULTURIST shunt and recurrent UTI's admitted with sepsis / UTI E Coli and enterococcus was altered and febrile on admission appears awake alert now with mild confusion to time AGRICULTURIST shunt in place - no evidence of MENTAL HEALTH CASE MANAGER infection at this time seen by Neurosurgery to cont IV rx for 14 days as complicated UTI
[2018-06-27] MEDS: Pravastatin Sodium 40 MG TAB PO SCH (21:48)
[2018-06-28] MEDS: AMPicillin 2 GM in Sodium Chloride 0.9% 100 ML IVPB SCH ×5 (00:52→22:35)
[2018-06-28] MEDS: Levothyroxine 25 MCG TAB PO SCH (05:38)
[2018-06-28] MEDS: Insulin Regular 100 units/ml SC SCH ×4 (09:00→22:36)
[2018-06-28] MEDS: Multivitamin With Minerals Tab PO SCH ×2 (09:01→09:16)
[2018-06-28] MEDS: GlipiZIDE 2.5 mg SR Tab PO SCH ×2 (09:01→09:17)
[2018-06-28] MEDS: cefTRIAXone 2 GM in Sodium Chloride 0.9% 100 ML IVPB SCH ×2 (09:15→21:30)
[2018-06-28] MEDS: Pravastatin Sodium 40 MG TAB PO SCH (21:31)
[2018-06-29] MEDS: AMPicillin 2 GM in Sodium Chloride 0.9% 100 ML IVPB SCH ×4 (05:38→22:53)
[2018-06-29] MEDS: Levothyroxine 25 MCG TAB PO SCH (05:39)
[2018-06-29 07:23] LABS: HEMOGLOBIN 11.7 g/dL (12.0-16.0); MEAN CELL VOLUME 87.5 fl (81.0-99.0); MEAN CORPUSCULAR HEMOGLOBIN 29.1 pg (27.0-31.0); MEAN CORPUSCULAR HGB CONC 33.3 g/dL (33.0-37.0); RBC 4.01 Mil/uL (3.80-5.20); WHITE BLOOD COUNT 12.2 K/uL (4.8-10.8)
[2018-06-29 07:27] LABS: ALB/GLOB RATIO 1.1 (1.0-2.1); ALBUMIN 3.7 g/dL (3.5-5.0); ALT/SGPT 29 U/L (9-52); AST/SGOT 22 U/L (14-36); BLOOD UREA NITROGEN 6 mg/dl (7-17); CALCIUM 9.2 mg/dL (8.4-10.2); GFR NON-AFRICAN AMERICAN > 60
[2018-06-29] MEDS: Insulin Regular 100 units/ml SC SCH ×4 (08:14→23:54)
[2018-06-29] MEDS: GlipiZIDE 2.5 mg SR Tab PO SCH (09:39)
[2018-06-29] MEDS: Multivitamin With Minerals Tab PO SCH (09:40)
[2018-06-29] MEDS: cefTRIAXone 2 GM in Sodium Chloride 0.9% 100 ML IVPB SCH ×2 (09:53→21:47)
--- NOTE | 2018-06-29 10:55 | CP.PCM.PN ---
Subjective - Date & Time of Evaluation Date of Evaluation: 06/28/18 Time of Evaluation: 11:00 - Subjective Subjective: patient seen and examined at bedside. Interim events noted continues to feel weak abdominal pain improving denies cp/sob/fever/chills. available diagnostic data reviewed Review of Systems All systems: reviewed and no additional remarkable complaints except mentioned above Objective Vital Signs Stable - Constitutional Appears: No Acute Distress Head Exam: NORMAL INSPECTION Eye Exam: Normal appearance Respiratory Exam: NORMAL BREATHING PATTERN Cardiovascular Exam: +S1, +S2 GI & Abdominal Exam: Soft, mild ttp of lower abdomen Neurological Exam: Alert, Awake Psychiatric exam: Normal Affect, Normal Mood Skin Exam: Normal Color, Warm Assessment and Plan monitor vitals monitor labs Cont meds Cont tx consultants appreciated input WBC remains elevated, trending down rest of plan as ordered Assessment and Plan (1) Sepsis Status: Acute (2) UTI (urinary tract infection) Status: Acute (3) Infection with multi-drug resistant microorganisms Status: Acute
[2018-06-29] MEDS ORDERED: Potassium Chloride 20 mEq ER Tab PO ONE (11:25)
--- NOTE | 2018-06-29 11:56 | CP.PCM.PN ---
Subjective - Date & Time of Evaluation Date of Evaluation: 06/29/18 Time of Evaluation: 09:00 - Subjective Subjective: slow progress on clear liquids no fever cont rx as planned Objective - Vital Signs/Intake and Output Vital Signs (last 24 hours): Temp Pulse Resp BP Pulse Ox 97.8 F 77 19 150/85 98 06/29/18 07:36 06/29/18 07:36 06/29/18 07:36 06/29/18 07:36 06/29/18 07:36 - Medications Medications: Current Medications Acetaminophen (Tylenol 325mg Tab) 650 mg PO Q4 PRN PRN Reason: Fever >100.4 F Aspirin (Ecotrin) 81 mg PO DAILY [facility] Last Admin: 06/29/18 09:41 Dose: 81 mg Bupropion HCl (Wellbutrin) 75 mg PO DAILY [facility] Last Admin: 06/29/18 09:41 Dose: 75 mg Buspirone HCl (Buspar) 5 mg PO Q12 [facility] Last Admin: 06/29/18 09:39 Dose: 5 mg Dextrose (Dextrose 50% Inj) 0 ml IV STAT PRN; Protocol PRN Reason: Hypoglycemia Protocol Dextrose (Glutose 15) 0 gm PO ONCE PRN; Protocol PRN Reason: Hypoglycemia Protocol Donepezil HCl (Aricept) 5 mg PO HS [facility] Last Admin: 06/28/18 21:31 Dose: 5 mg Escitalopram Oxalate (Lexapro) 20 mg PO DAILY [facility] Last Admin: 06/29/18 09:41 Dose: 20 mg Glipizide (Glucotrol Xl) 2.5 mg PO BRK [facility] Last Admin: 06/29/18 09:39 Dose: 2.5 mg Glucagon (Glucagen Diagnostic Kit) 0 mg IM STAT PRN; Protocol PRN Reason: Hypoglycemia Protocol Ampicillin 2 gm/ Sodium (Chloride) 100 mls @ 200 mls/hr IVPB Q6H [facility]; Protocol Last Admin: 06/29/18 05:38 Dose: 200 mls/hr Ceftriaxone Sodium 2 gm/ (Sodium Chloride) 100 mls @ 100 mls/hr IVPB Q12@1000,2200 [facility]; Protocol Last Admin: 06/29/18 09:53 Dose: 100 mls/hr Insulin Human Regular (Humulin R) 0 units SC ACCU-CHECK [facility]; Protocol Last Admin: 06/29/18 08:14 Dose: 1 units Levothyroxine Sodium (Synthroid) 25 mcg PO DAILY@0630 [facility] Last Admin: 06/29/18 05:39 Dose: 25 mcg Metformin HCl (Glucophage) 1,000 mg PO BID [facility] Last Admin: 06/29/18 09:39 Dose: 1,000 mg Multivitamins/Minerals (Therapeutic-M Tab) 1 tab PO DAILY [facility] Last Admin: 06/29/18 09:40 Dose: 1 tab Pravastatin Sodium (Pravachol) 40 mg PO HS [facility] Last Admin: 06/28/18 21:31 Dose: 40 mg Sucralfate (Carafate Tab) 1 gm PO TIDAC [facility] Last Admin: 06/29/18 09:40 Dose: 1 gm - Labs Labs: 06/29/18 06:30 06/29/18 06:30 - Constitutional Appears: Non-toxic, Chronically Ill - Head Exam Head Exam: NORMOCEPHALIC - Eye Exam Eye Exam: EOMI, Normal appearance, PERRL Pupil Exam: NORMAL ACCOMODATION, PERRL - ENT Exam ENT Exam: Mucous Membranes Moist, Normal Exam - Neck Exam Neck Exam: Full ROM, Normal Inspection. absent: Lymphadenopathy - Respiratory Exam Respiratory Exam: Clear to Ausculation Bilateral, NORMAL BREATHING PATTERN - Cardiovascular Exam Cardiovascular Exam: REGULAR RHYTHM, +S1, +S2. absent: Murmur - GI/Abdominal Exam GI & Abdominal Exam: Distended, Soft, Hyperactive Bowel Sounds. absent: Tenderness - Rectal Exam Rectal Exam: Deferred - Exam Exam: NORMAL INSPECTION - Extremities Exam Extremities Exam: Full ROM, Normal Capillary Refill, Normal Inspection. absent: Joint Swelling, Pedal Edema - Back Exam Back Exam: NORMAL INSPECTION - Neurological Exam Neurological Exam: Alert, Awake, CN II-XII Intact, Normal Gait, Oriented x3 - Psychiatric Exam Psychiatric exam: Normal Affect, Normal Mood - Skin Skin Exam: Dry, Intact, Normal Color, Warm Assessment and Plan (1) Dementia Status: Acute (2) Pyelonephritis Status: Acute (3) Sepsis Status: Acute - Assessment and Plan (Free Text) Assessment: cont IV rx and wound care
[2018-06-29 16:29] VITALS: O2SAT 96
[2018-06-29] MEDS: Pravastatin Sodium 40 MG TAB PO SCH (21:31)
[2018-06-30] MEDS: AMPicillin 2 GM in Sodium Chloride 0.9% 100 ML IVPB SCH (04:31)
[2018-06-30] MEDS: Levothyroxine 25 MCG TAB PO SCH (06:03)
[2018-06-30 08:05] VITALS: BP 145/87; PULSE 70; RESP 19; TEMP 98
[2018-06-30] MEDS: Insulin Regular 100 units/ml SC SCH ×2 (08:26→12:05)
[2018-06-30] MEDS: GlipiZIDE 2.5 mg SR Tab PO SCH (08:26)
[2018-06-30] MEDS ORDERED: Enoxaparin 40 mg Syringe SC SCH (09:00)
[2018-06-30] MEDS: Multivitamin With Minerals Tab PO SCH (09:58)
[2018-06-30] MEDS: cefTRIAXone 2 GM in Sodium Chloride 0.9% 100 ML IVPB SCH (10:04)
--- NOTE | 2018-06-30 22:27 | CP.PCM.PN ---
Subjective - Date & Time of Evaluation Date of Evaluation: 06/29/18 Time of Evaluation: 09:00 - Subjective Subjective: Pt seen and assessed at bedside. Remains drowsy, however able to follow commands when prompted; mental status shows mild improvement from previous day. Maintained on Rocephin for UTI, pt for possible discharge planning. Subjective Review of Systems: Reviewed and no additional remarkable complaints except mild lethargy. Objective Appears: Anxious, Non-toxic, No Acute Distress. Head Exam: NORMAL INSPECTION, normocephalic. Eye Exam: Normal eye inspection, EOMI, PERRLA. Respiratory Exam: NORMAL BREATHING PATTERN, breath sounds clear bilaterally. Cardiovascular Exam: +S1, +S2. RRR. GI & Abdominal Exam: Soft, non-tender, non-distended. Neurological Exam: Mildly Lethargic, able to follow basic commands. Psychiatric exam: Midly lethargic. Normal mood. Calm and cooperative. Assessment/Impression/Plan: 1.) UTI -On Rocephin antibiotic. -Consults input appreciated. -Less lethargic than day prior. -As per neurosurgery, no intervention at this time. -Discharge planning. -Monitor WBC. Objective - Vital Signs/Intake and Output Vital Signs (last 24 hours): Temp Pulse Resp BP Pulse Ox 98.0 F 70 19 145/87 96 06/30/18 08:04 06/30/18 08:04 06/30/18 08:04 06/30/18 08:04 06/30/18 08:04 - Labs Labs: 06/29/18 06:30 06/29/18 06:30 Assessment and Plan (1) UTI (urinary tract infection) Status: Acute
--- NOTE | 2018-06-30 22:39 | CP.PCM.DIS ---
Provider - Provider Date of Admission: 06/22/18 17:12 Attending physician: Adalberto Stallings MD Consults: 06/22/18 17:15 Urology Consult Stat Comment: Consulting Provider: Nj Carcamo Consulting Physician: Nj Carcamo Reason for Consult: urinary incontinence 06/23/18 01:14 Case Management Referral Routine Comment: Physician Instructions: Reason For Exam: Reason for Referral: [employer] Eval Nursing Referral for Wound Care Routine Comment: Physician Instructions: Reason For Exam: sacral redness 06/25/18 10:20 Infectious Disease Consult Routine Comment: Consulting Provider: Nicolas Ibarra Consulting Physician: Nicolas Ibarra Reason for Consult: MDR UTI 06/26/18 12:11 Neuro Surgery Consult Routine Comment: Consulting Provider: Bran Headley Consulting Physician: Bran Headley 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, 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, 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 Time Spent in preparation of Discharge (in minutes): 30 Diagnosis - Discharge Diagnosis (1) UTI (urinary tract infection) Status: Acute Hospital Course - Lab Results Lab Results: Micro Results 06/22/18 12:00 Blood-Venous Blood Culture - Final NO GROWTH AFTER 5 DAYS 06/22/18 12:00 Blood-Venous Gram Stain - Final TEST NOT PERFORMED 06/22/18 11:30 Blood-Venous Blood Culture - Final NO GROWTH AFTER 5 DAYS 06/22/18 11:30 Blood-Venous Gram Stain - Final TEST NOT PERFORMED 06/22/18 15:35 Urine,Clean Catch Urine Culture - Final Escherichia Coli Enterococcus Faecalis Most Recent Lab Values WBC 12.2 K/uL (4.8-10.8) H 06/29/18 06:30 RBC 4.01 Mil/uL (3.80-5.20) 06/29/18 06:30 Hgb 11.7 g/dL (12.0-16.0) L 06/29/18 06:30 Hct 35.1 % (34.0-47.0) 06/29/18 06:30 MCV 87.5 fl (81.0-99.0) 06/29/18 06:30 MCH 29.1 pg (27.0-31.0) 06/29/18 06:30 MCHC 33.3 g/dL (33.0-37.0) 06/29/18 06:30 RDW 14.0 % (11.5-14.5) 06/29/18 06:30 Plt Count 336 K/uL (130-400) 06/29/18 06:30 MPV 8.6 fl (7.2-11.7) 06/24/18 06:00 Neut % (Auto) 78.3 % (50.0-75.0) H 06/24/18 06:00 Lymph % (Auto) 12.9 % (20.0-40.0) L 06/24/18 06:00 Nuckolls % (Auto) 8.2 % (0.0-10.0) 06/24/18 06:00 Eos % (Auto) 0.0 % (0.0-4.0) 06/24/18 06:00 Baso % (Auto) 0.6 % (0.0-2.0) 06/24/18 06:00 Neut # (Auto) 15.0 K/uL (1.8-7.0) H 06/24/18 06:00 Lymph # (Auto) 2.5 K/uL (1.0-4.3) 06/24/18 06:00 [place]uckolls # (Auto) 1.6 K/uL (0.0-0.8) H 06/24/18 06:00 Eos # (Auto) 0.0 K/uL (0.0-0.7) 06/24/18 06:00 Baso # (Auto) 0.1 K/uL (0.0-0.2) 06/24/18 06:00 pO2 19 mm/Hg (30-55) L 06/22/18 12:24 VBG pH 7.39 (7.32-7.43) 06/22/18 12:24 VBG pCO2 44 mmHg (40-60) 06/22/18 12:24 VBG HCO3 24.0 mmol/L 06/22/18 12:24 VBG Total CO2 28.0 mmol/L (22-28) 06/22/18 12:24 VBG O2 Sat (Calc) 29.7 % (40-65) L 06/22/18 12:24 VBG Base Excess 1.2 mmol/L (0.0-2.0) 06/22/18 12:24 VBG Potassium 6.1 mmol/L (3.6-5.2) H 06/22/18 12:24 Sodium 137.0 mmol/L (132-148) 06/22/18 12:24 Chloride 104.0 mmol/L (98-107) 06/22/18 12:24 Glucose 135 mg/dL (65-105) H 06/22/18 12:24 Lactate 1.2 mmol/L (0.7-2.1) 06/22/18 12:24 FiO2 21.0 % 06/22/18 12:24 Sodium 139 mmol/l (132-148) 06/29/18 06:30 Potassium 3.4 MMOL/L (3.6-5.0) L 06/29/18 06:30 Chloride 103 mmol/L (98-107) 06/29/18 06:30 Carbon Dioxide 23 mmol/L (22-30) 06/29/18 06:30 Anion Gap 16 (10-20) 06/29/18 06:30 BUN 6 mg/dl (7-17) L 06/29/18 06:30 Creatinine 0.6 mg/dl (0.7-1.2) L 06/29/18 06:30 Est GFR ( Amer) > 60 06/29/18 06:30 Est GFR (Non-Af Amer) > 60 06/29/18 06:30 POC Glucose (mg/dL) 173 mg/dL (65-110) H 06/30/18 10:33 Random Glucose 194 mg/dL (65-105) H 06/29/18 06:30 Hemoglobin A1c 7.1 % (4.2-6.5) H 06/23/18 10:30 Calcium 9.2 mg/dL (8.4-10.2) 06/29/18 06:30 Magnesium 2.0 MG/DL (1.6-2.3) 06/26/18 09:20 Total Bilirubin 0.3 mg/dl (0.2-1.3) 06/29/18 06:30 AST 22 U/L (14-36) 06/29/18 06:30 ALT 29 U/L (9-52) 06/29/18 06:30 Alkaline Phosphatase 101 U/L (38-126) 06/29/18 06:30 Total Protein 7.2 G/DL (6.3-8.2) 06/29/18 06:30 Albumin 3.7 g/dL (3.5-5.0) 06/29/18 06:30 Globulin 3.5 gm/dL (2.2-3.9) 06/29/18 06:30 Albumin/Globulin Ratio 1.1 (1.0-2.1) 06/29/18 06:30 Procalcitonin 0.33 NG/ML (0.19-0.49) 06/26/18 05:30 Venous Blood Potassium 6.1 mmol/L (3.6-5.2) H 06/22/18 12:24 Urine Color Maye (YELLOW) 06/22/18 15:35 Urine Clarity Turbid (Clear) 06/22/18 15:35 Urine pH 6.0 (5.0-8.0) 06/22/18 15:35 Ur Specific [place] 1.013 (1.003-1.030) 06/22/18 15:35 Urine Protein 30 mg/dL (NEGATIVE) 06/22/18 15:35 Urine Glucose (UA) Neg mg/dL (NEGATIVE) 06/22/18 15:35 Urine Ketones Negative mg/dL (NEGATIVE) 06/22/18 15:35 Urine Blood Moderate (NEGATIVE) 06/22/18 15:35 Urine Nitrate Positive (NEGATIVE) H 06/22/18 15:35 Urine Bilirubin Negative (NEGATIVE) 06/22/18 15:35 Urine Urobilinogen 0.2-1.0 mg/dL (0.2-1.0) 06/22/18 15:35 Ur Leukocyte Esterase Large Bernice/uL (Negative) 06/22/18 15:35 Urine RBC (Auto) 63 /hpf (0-3) H 06/22/18 15:35 Urine WBC Clumps (Auto) Many /hpf (NONE) H 06/22/18 15:35 Urine Microscopic WBC 1011 /hpf (0-5) H 06/22/18 15:35 Amorphous Sediment Occ /ul (<OCC) H 06/22/18 15:35 Urine Bacteria Many (<OCC) H 06/22/18 15:35 Vancomycin Trough 21.7 ug/mL (5.0-10.0) H 06/27/18 20:07 - Hospital Course Hospital Course: Pt was admitted for UTI and treated with Rocephin antibiotics. During admission, lethargy was noted; pt has a h/o hydrocephalus. Neurosurgery was consulted and no further intervention was necessary. The pt was then discharged to subacute rehab at [facility] on ampicillin and rocephin. Discharge Exam - Head Exam Head Exam: NORMOCEPHALIC - Eye Exam Eye Exam: EOMI, Normal appearance, PERRL Pupil Exam: NORMAL ACCOMODATION - ENT Exam ENT Exam: Mucous Membranes Moist - Neck Exam Neck exam: Full Rom - Respiratory Exam Respiratory Exam: Clear to PA & Lateral - Cardiovascular Exam Cardiovascular Exam: REGULAR RHYTHM - GI/Abdominal Exam GI & Abdominal Exam: Normal Bowel Sounds - Extremities Exam Extremities exam: full ROM - Back Exam Back exam: NORMAL INSPECTION - Neurological Exam Neurological exam: Alert Additional comments: mild drowsiness; hx hydrocephalus - Psychiatric Exam Psychiatric exam: Normal Affect, Normal Mood - Skin Skin Exam: Dry, Normal Color, Warm Discharge Plan - Discharge Medications Prescriptions: AMPicillin [Ampicillin] 2 gm IVPB Q6 6 Days vial cefTRIAXone [Rocephin] 2 gm IVPB Q12 6 Days vial - Follow Up Plan Condition: FAIR Disposition: REHAB FACILITY/REHAB UNIT Instructions: Urinary Tract Infection, Adult (DC) Additional Instructions: [facility] medical records [phone] Referrals: Nj Carcamo MD [Medical Doctor] - Bran Headley MD [Staff Provider] - Nicolas Ibarra MD [Staff Provider] -
== END 2018-06-30 13:33 | DRG 872 ==
LOC: H.ER 11:03 → H.ERHOLD 17:12 → H.MEDSURG1 21:18
PROVIDERS: ADMIT Family Medicine; ATTEND Family Medicine
DX: A41.9 Sepsis, unspecified organism (principal); N10 Acute pyelonephritis; N39.0 Urinary tract infection, site not specified; G91.2 (Idiopathic) normal pressure hydrocephalus; B95.2 Enterococcus as the cause of diseases classified elsewhere; B96.20 Unspecified Escherichia coli [E. coli] as the cause of diseases classified elsewhere; Z16.24 Resistance to multiple antibiotics; L89.151 Pressure ulcer of sacral region, stage 1; E11.51 Type 2 diabetes mellitus with diabetic peripheral angiopathy without gangrene; F03.90 Unspecified dementia, unspecified severity, without behavioral disturbance, psychotic disturbance, mood disturbance, and anxiety; E03.9 Hypothyroidism, unspecified; N39.498 Other specified urinary incontinence; G43.909 Migraine, unspecified, not intractable, without status migrainosus; E78.00 Pure hypercholesterolemia, unspecified; Z98.2 Presence of cerebrospinal fluid drainage device; Z86.73 Personal history of transient ischemic attack (TIA), and cerebral infarction without residual deficits; Z85.038 Personal history of other malignant neoplasm of large intestine; Z79.82 Long term (current) use of aspirin; Z87.440 Personal history of urinary (tract) infections; Z79.84 Long term (current) use of oral hypoglycemic drugs